=== PATIENT | male | born 1965 | race African-American/Black ===

== ENCOUNTER 2017-10-23 16:10 | Emergency (ER) | payer OTHER, SELFPAY ==
[2017-10-23 16:42] LABS: #Basophils 0.1 thou/uL (0.0-0.2); #Lymphocytes 2.1 thou/uL (1.20-3.40); #Monocytes 0.4 thou/uL (0.11-0.59); #Neutrophils 2.7 thou/uL (1.40-6.50); %Basophils 1.4 % (0.0-1.0); %Eosinophils 0.4 % (0.0-10.0); %Lymphocytes 39.2 % (21.0-51.0); Hematocrit 50.9 % (42.0-52.0); Mean Platelet Volume 7.8 fL (7.4-10.4); Red Blood Cell (RBC) Count 4.92 mill/uL (4.70-6.10); White Blood Cell (WBC) Count 5.2 thou/uL (4.8-10.8)
[2017-10-23 17:04] LABS: ALT (SGPT) 12 U/L (8-55); AST (SGOT) 23 U/L (5-34); Alkaline Phosphatase 81 U/L (40-150); Anion Gap 15 mmol/L (10-20); BUN (Urea Nitrogen) 21 mg/dL (8.9-20.6); Bilirubin, Total 2.3 mg/dL (0.2-1.2); Calc. Creatinine Clearance 0 mL/min (70-130); Calcium 9.9 mg/dL (7.8-10.44); Carbon Dioxide 26 mmol/L (22-29); Chloride 99 mmol/L (98-107); Estimated GFR-MDRD 65; Globulin 3.6 g/dL (2.4-3.5); Lipase 6 U/L (8-78); Protein, Total 7.8 g/dL (6.0-8.3)
[2017-10-23] MEDS ORDERED: Ondansetron HCl/PF 4 MG/2 ML Vial ONE (17:28)
[2017-10-23] MEDS ORDERED: diphenhydrAMINE 50 MG/ML VIAL ONE (18:40)
[2017-10-23 20:06] LABS: Bilirubin Negative (Negative); Blood, Urine Trace (Negative); Glucose, Urine (Dipstick) Negative (Negative); Ketone, Urine Trace mg/dL (Negative); Nitrite Negative (Negative); Protein, Urine (Dipstick) 30 mg/dL (Neg-Trace)
[2017-10-23 20:08] LABS: Bacteria/HPF None Seen HPF (None Seen); Hyaline Casts/LPF 4-6 HYALINE CAST LPF (0-3 Hyaline); RBC/HPF 21-50 HPF (0-3); Squamous Epithelial 0-3 HPF (0-3); WBC/HPF 0-3 HPF (0-3)
== END 2017-10-23 21:15 | disposition home or self-care (01) ==
LOC: ERS 16:10
DX: E86.0 Dehydration (principal); L50.9 Urticaria, unspecified; I10 Essential (primary) hypertension; J45.909 Unspecified asthma, uncomplicated; F17.210 Nicotine dependence, cigarettes, uncomplicated
CPT/HCPCS: 36415; 80053; 81003; 81015; 83690; 85025; 96361; 96374; 96375; 99406; J1200; J2405

== ENCOUNTER 2018-04-01 23:02 | Inpatient (IN) | payer BC, SELFPAY ==
[2018-04-01] MEDS ORDERED: methylPREDNISolone Sod Succ/PF 125 MG/2 ML VIAL ONE (23:25)
[2018-04-01 23:28] LABS: #Basophils 0.1 thou/uL (0.0-0.2); #Eosinphils 0.3 thou/uL (0.0-0.7); #Lymphocytes 3.8 thou/uL (1.20-3.40); #Monocytes 0.5 thou/uL (0.11-0.59); %Basophils 0.6 % (0.0-1.0); %Eosinophils 2.7 % (0.0-10.0); %Lymphocytes 32.3 % (21.0-51.0); %Monocytes 4.6 % (0.0-10.0); %Neutrophils 59.8 % (42.0-75.0); Hemoglobin 14.3 g/dL (14.0-18.0); Mean Corpuscular HGB CONC 33.2 g/dL (32.0-36.0); Mean Platelet Volume 8.9 fL (7.4-10.4); Platelet Count 205 thou/uL (130-400); White Blood Cell (WBC) Count 11.7 thou/uL (4.8-10.8)
[2018-04-01 23:39] LABS: INR-International Normal Ratio 1.2; PTT 31.6 SEC (22.9-36.1); Prothrombin Time 15.5 SEC (12.0-14.7)
[2018-04-01 23:47] LABS: ALT (SGPT) 63 U/L (8-55); AST (SGOT) 63 U/L (5-34); Albumin 4.1 g/dL (3.5-5.0); Alkaline Phosphatase 106 U/L (40-150); Anion Gap 11 mmol/L (10-20); BUN (Urea Nitrogen) 16 mg/dL (8.4-25.7); Bilirubin, Total 1.4 mg/dL (0.2-1.2); CK (CPK) 480 U/L (30-200); Calc. Creatinine Clearance 0 mL/min (70-130); Calcium 9.4 mg/dL (7.8-10.44); Carbon Dioxide 25 mmol/L (22-29); Chloride 112 mmol/L (98-107); Estimated GFR-MDRD 87; Globulin 3.2 g/dL (2.4-3.5); Glucose 142 mg/dL (70-105); Magnesium 2.3 mg/dL (1.6-2.6); Potassium 4.1 mmol/L (3.5-5.1); Protein, Total 7.3 g/dL (6.0-8.3); Sodium 144 mmol/L (136-145)
[2018-04-01 23:52] LABS: CKMB 3.2 ng/mL (0-6.6); Troponin I 0.048 ng/mL (< 0.028)
--- NOTE | 2018-04-01 23:53 | RAD ---
AP VIEW CHEST: 04/01/18 HISTORY: Chest pain. AP view of the chest is obtained on 04/01/18. Comparison made to previous exam from 02/06/14. AP view chest demonstrates mild pulmonary vascular congestion. No evidence of effusions, pneumonia or pneumothorax seen. IMPRESSION: Unremarkable AP view chest. POS: [facility]
[2018-04-02] MEDS ORDERED: Furosemide 40 MG/4 ML VIAL ONE (00:13)
[2018-04-02] MEDS ORDERED: Nitroglycerin 2% Ointment 1 INCH/1 GM Packet ONE (00:13)
[2018-04-02 01:29] VITALS: BMI 19.1
[2018-04-02 03:13] LABS: Troponin I 0.068 ng/mL (< 0.028)
[2018-04-02] MEDS ORDERED: hydrALAZINE 20 MG/ML VIAL SLOW IVP PRN (04:49)
[2018-04-02] MEDS ORDERED: Ondansetron HCl/PF 4 MG/2 ML Vial IVP PRN (04:49)
[2018-04-02] MEDS ORDERED: cloNIDine 0.1 MG TAB PO PRN (04:49)
[2018-04-02] MEDS ORDERED: Ondansetron ODT 4 MG TAB PO PRN (04:49)
[2018-04-02] MEDS ORDERED: Acetaminophen 500 MG TAB PO PRN (04:49)
[2018-04-02] MEDS: Furosemide 20 MG/2 ML VIAL SLOW IVP SCH ×2 (06:00→14:34)
[2018-04-02 06:04] LABS: ALT (SGPT) 60 U/L (8-55); AST (SGOT) 43 U/L (5-34); Albumin 4.2 g/dL (3.5-5.0); Alkaline Phosphatase 110 U/L (40-150); Anion Gap 10 mmol/L (10-20); BUN (Urea Nitrogen) 16 mg/dL (8.4-25.7); Bilirubin, Total 1.8 mg/dL (0.2-1.2); Calc. Creatinine Clearance 78 mL/min (70-130); Calcium 9.5 mg/dL (7.8-10.44); Carbon Dioxide 26 mmol/L (22-29); Chloride 108 mmol/L (98-107); Estimated GFR-MDRD Greater than 90; Globulin 3.4 g/dL (2.4-3.5); Glucose 151 mg/dL (70-105); Potassium 3.8 mmol/L (3.5-5.1); Protein, Total 7.6 g/dL (6.0-8.3); Sodium 140 mmol/L (136-145)
[2018-04-02 06:08] LABS: Troponin I 0.047 ng/mL (< 0.028)
[2018-04-02 07:11] LABS: Band 8 % (5-11); Hemoglobin 14.4 g/dL (14.0-18.0); Lymphocytes 8 % (21-51); MDiff Complete? YES; Macrocytosis SLIGHT = 6-15 cells (100X) (0-5/hpf); Mean Corpuscular HGB CONC 34.2 g/dL (32.0-36.0); Mean Corpuscular Hemoglobin 34.4 pg (27.0-31.0); Mean Platelet Volume 8.7 fL (7.4-10.4); Neutrophil 84 % (42-75); PLT Morphology Comment Appears Adequate; Platelet Count 205 thou/uL (130-400); RBC Distribution Width 11.1 % (11.5-14.5); Red Blood Cell (RBC) Count 4.19 mill/uL (4.70-6.10); White Blood Cell (WBC) Count 11.7 thou/uL (4.8-10.8)
--- NOTE | 2018-04-02 07:22 | HP ---
DATE OF ADMISSION: 04/02/2018 PRIMARY CARE PROVIDER: Ann schwartz. CHIEF COMPLAINT: Shortness of breath. HISTORY OF PRESENT ILLNESS: This is a 53-year-old -[place]er male who presents to [facility] complaining of increased shortness of breath over the last 24 hours. The patient with known history of hypertension, asthma, presenting with severe shortness of breath with chest imaging in the department showing pulmonary edema and concern for new onset marina estive heart failure. Initial BNP of 823 noted. The patient denied any prior known history of conge stive heart failure. The patient denied any specific fever, chills, recent trauma, travel history, o r unilateral lower extremity edema. The patient denies any specific ankle edema. The patient states he has recently been placed on a medical insurance through his employer and has not sought medical c are recently. The patient denied any specific jaw or left arm pain. The patient denied any specific chest pain other than when he was initially evaluated in the emergency room noted to be hypoxic and placed on BiPAP noninvasive mechanical ventilation. The patient received IV Lasix 40 mg x1 dose in a ddition to transdermal nitroglycerin, aspirin 324 mg and Solu-Medrol 125. The patient also received bronchodilator therapy with DuoNebs. The patient does admit to smoking history up to half a pack of cigarettes daily. PAST MEDICAL HISTORY: 1. Hypertension, uncontrolled. 2. History of asthma. 3. Tobacco abuse. 4. History of marijuana use. PAST SURGICAL HISTORY: Status post circumcision at the age of 19. CURRENT MEDICATIONS: Reviewed and negative. ALLERGIES: No known drug allergies. FAMILY HISTORY: Positive for hypertension. SOCIAL HISTORY: The patient resides in [place], [place]. Works for [employer]. Smokes up to half a pack of cigarettes daily. Social alcohol use. Denies illicit drug use. REVIEW OF SYSTEMS: The following complete review of systems was negative, unless otherwise mentioned in the HPI or below: Constitutional: Weight loss or gain, ability to conduct usual activities. Sk in: Rash, itching. Eyes: Double vision, pain. ENT/Mouth: Nose bleeding, neck stiffness, pain, te nderness. Cardiovascular: Palpitations, dyspnea on exertion, orthopnea. Respiratory: Shortness of breath, wheezing, cough, hemoptysis, fever or night sweats. Gastrointestinal: Poor appetite, abdom inal pain, heartburn, nausea, vomiting, constipation, or diarrhea. Genitourinary: Urgency, frequenc y, dysuria, nocturia. Musculoskeletal: Pain, swelling. Neurologic/Psychiatric: Anxiety, depressio n. Allergy/Immunologic: Skin rash, bleeding tendency. Otherwise negative except as stated per HPI. PHYSICAL EXAMINATION: VITAL SIGNS: On admission, blood pressure 154/135, pulse 109, respiratory rate 25, temperature 98 de grees Fahrenheit, O2 saturation 98% on BiPAP, noninvasive mechanical ventilation. GENERAL APPEARANCE: This is a 53-year-old -[place]er male, alert and oriented x3, pleasant, in no acute distress. HEENT: Pupils are equal, round, and reactive to light and accommodation. Extraocular muscles are in tact. No scleral icterus, no conjunctival injection. Nares patent. OP is clear. Teeth in fair rep air. NECK: Supple. No cervical adenopathy, no thyromegaly, no carotid bruits, no JVD appreciated. Cervi doron spine with full active and passive range of motion. No meningeal signs appreciated. CHEST: Bibasilar crackles noted. Prolonged expiratory phase. CARDIOVASCULAR: S1, S2 with tachycardia. No murmur, rub, or gallop. ABDOMEN: Flat, soft, nontender, nondistended. Bowel sounds are positive in all four quadrants. The re is no hepatosplenomegaly, no abdominal bruits, no rebound or guarding appreciated. EXTREMITIES: Warm and dry with fair turgor. No clubbing, cyanosis, or asymmetric edema appreciated. Pulses palpable distally at the dorsalis pedis, posterior tibial, and popliteal arteries bilaterall y. Capillary refill less than 2 seconds. NEUROLOGIC: Cranial nerves II-XII are grossly intact. No focal or lateralizing signs appreciated. PERTINENT LABORATORY AND X-RAY FINDINGS: Sodium 144, potassium 4.1, chloride 112, CO2 of 25, BUN 16, creatinine 1.08, estimated GFR of 87, glucose 142, calcium 9.4, magnesium 2.3, total bilirubin 1.4, AST 63, ALT 63, alkaline phosphatase 106. Total CK 480. Troponin I ranged between 0.048 to 0.068. BNP 823. Albumin 4.1. CBC showed a white blood cell count of 11.7, hemoglobin 14, hematocrit 43, MC V 102, platelet count 205 with normal differential. PT 15.5, INR 1.2, PTT 31.6. Portable chest x-ra y dated 04/01/2018 showed mild pulmonary vascular congestion. EKG dated 04/01/2018 by my interpretat ion shows sinus tachycardia with heart rates greater than 100. Attenuated R waves noted in the preco rdial leads. Left axis deviation noted. Voltage criteria consistent with left ventricular hypertrop hy. No acute ST-T wave changes appreciated. ASSESSMENT AND PLAN: 1. Acute congestive heart failure exacerbation. The patient will be admitted to the intermediate ca re unit. We will obtain 2D transthoracic echocardiogram for accurate ejection fraction, valvular fun ction. Continue Lasix 20 mg IV b.i.d. Consult Cardiology service in the a.m. for further recommenda tions and comanagement. Continue aspirin 81 mg daily, and initiate carvedilol 6.25 mg b.i.d. Initia te lisinopril 2.5 mg daily. 2. Acute hypoxemic respiratory failure secondary to #1. Improved after BiPAP noninvasive mechanical ventilation. We will wean to oxygen by nasal cannula. Bronchodilator therapy with DuoNeb q.4 hours p.r.n. 3. Transaminitis. Suspect secondary to #2. We will check a hepatitis A, B, and C panel. Monitor s erial LFTs. 4. Elevated troponin I. Suspect secondary to demand ischemia in the context of elevated blood press ure and presentation. Continue to trend cardiac biomarkers. Consult Cardiology service in the a.m. Continue aspirin 81 mg daily. 5. Tobacco use. We will offer smoking cessation resources prior to discharge. 6. Prophylaxis. Sequential compression devices while in bed. Pepcid 20 mg p.o. b.i.d. 7. Code status is FULL. Surrogate medical decision maker is Jessica Looney.
[2018-04-02] MEDS: Aspirin 81 mg Enteric Coated Tablet PO SCH (08:28)
[2018-04-02] MEDS: Famotidine 20 MG TAB PO SCH ×2 (08:28→20:15)
[2018-04-02] MEDS: Carvedilol 6.25 MG TAB PO SCH ×2 (08:28→17:20)
[2018-04-02] MEDS: Lisinopril 2.5 MG TAB PO SCH (08:29)
--- NOTE | 2018-04-02 12:22 | CON ---
DATE OF CONSULTATION: 04/02/2018 CONSULTING PHYSICIAN: Dr. Harrell from [facility]. REASON FOR CONSULTATION: Acute respiratory failure, related to congestive heart failure. HISTORY OF PRESENT ILLNESS: Mr. Carvajal is a 53-year-old male, who came to the emergency room last nig ht with shortness of breath and chest pain that had been present off and on for 24 hours prior to adm ission. He was noted to have severely elevated BNP along with pulmonary edema on his chest x-ray. H e was placed on BiPAP, given diuretics, and improved. He is no longer having chest pain at this time . This patient has been seen by Dr. Demarco in the past, but that was about 10 years ago, when he was hos pitalized with pneumonia. PAST MEDICAL HISTORY: 1. Hypertension. 2. Asthma. 3. Tobacco abuse. PAST SURGICAL HISTORY: Circumcision. MEDICATIONS PRIOR TO ADMISSION: None. ALLERGIES: None. FAMILY MEDICAL HISTORY: Remarkable for hypertension. SOCIAL HISTORY: He smokes 1 pack per day, occasionally uses alcohol, does not use illicit drugs. He is currently under house arrest with the ankle bracelet on his right ankle. REVIEW OF SYSTEMS: Twelve-point review of systems, otherwise, negative. PHYSICAL EXAMINATION: VITAL SIGNS: Temperature 98.2, pulse 88, blood pressure 142/81, O2 sat 98% on 1.5 liters. HEENT: Unremarkable. NECK: No JVD. LUNGS: Clear without wheezing or rhonchi. CARDIAC: S1 and S2 regular, without murmur, rub, or gallop. ABDOMEN: Soft, nontender, nondistended. EXTREMITIES: No clubbing, cyanosis, or edema. NEUROLOGIC EXAM: Grossly intact throughout. SKIN: Shows no bruises or jaundice. LABORATORY DATA: White blood cell count 11.7, hematocrit 42.3, platelet count 205. INR 1.2. Sodium 140, potassium 3.8, chloride 100, CO2 of 26, BUN 16, creatinine 0.9, glucose 151, troponin 0.047. ASSESSMENT: 1. New onset congestive heart failure - suspect acute systolic dysfunction. 2. Angina on admission. 3. Acute respiratory failure, which is resolved. PLAN: BiPAP has been discontinued. The patient can be moved to the telemetry floor. He needs furth er workup from Cardiology regarding chest pain with probable stress testing or cardiac catheterizatio n.
--- NOTE | 2018-04-02 15:21 | PDOC.PN ---
- Subjective Encounter Start Date: 04/02/18 Encounter Start Time: 12:00 Subjective: breathing better, no chest pain or palp - Objective Resuscitation Status: Resuscitation Status FULL:Full Resuscitation MAR Reviewed: Yes Vital Signs & Weight: Vital Signs (12 hours) Temp Pulse Pulse Pulse Resp BP BP 04/02/18 12:14 94 74 113/77 04/02/18 11:00 98.9 F 83 18 04/02/18 08:29 88 142/91 H 04/02/18 08:28 142/91 H 04/02/18 08:18 98.9 F 83 18 04/02/18 07:25 98.2 F 96 18 04/02/18 04:00 98.2 F 94 18 BP BP Pulse Ox Pulse Ox Pulse Ox 04/02/18 12:14 136/84 97 98 04/02/18 11:00 118/85 96 04/02/18 08:29 04/02/18 08:28 04/02/18 08:18 98 04/02/18 07:25 153/105 H 98 04/02/18 04:00 129/91 H 97 Weight Weight 122 lb 8 oz I&O: 04/01/18 04/02/18 04/03/18 06:59 06:59 06:59 Intake Total 150 Output Total 1600 Balance -1450 Result Diagrams: 04/02/18 05:35 04/02/18 05:35 Phys Exam - Physical Examination HEENT: PERRLA, moist MMs Neck: no JVD, supple Respiratory: no wheezing, no rales Cardiovascular: RRR, no significant murmur Gastrointestinal: soft, non-tender, positive bowel sounds Musculoskeletal: no edema, pulses present Neurological: non-focal, moves all 4 limbs Psychiatric: normal affect, A&O x 3 Dx/Plan (1) Acute exacerbation of CHF (congestive heart failure) Code(s): I50.9 - HEART FAILURE, UNSPECIFIED Status: Acute (2) COPD (chronic obstructive pulmonary disease) Status: Chronic Qualifiers: COPD type: chronic bronchitis Chronic bronchitis type: unspecified Qualified Code(s): J42 - Unspecified chronic bronchitis (3) Acute respiratory failure with hypoxia Code(s): J96.01 - ACUTE RESPIRATORY FAILURE WITH HYPOXIA Status: Resolved (4) Demand ischemia of myocardium Code(s): I24.8 - OTHER FORMS OF ACUTE ISCHEMIC HEART DISEASE Status: Acute (5) Tobacco abuse Code(s): Z72.0 - TOBACCO USE Status: Chronic - Plan off bipap -: on lasic 20mg iv q12h -: for stress test per cardio advice, await echo results -: small dose of coreg, lisinopril and asp -: nebs prn, tx to tele * . Review of Systems - Medications/Allergies Allergies/Adverse Reactions: Allergies Allergy/AdvReac Type Severity Reaction Status Date / Time No Known Allergies Allergy Verified 04/02/18 01:31 Medications: Current Medications Acetaminophen (Tylenol) 1,000 mg PO Q6H PRN PRN Reason: Headache/Fever or Mild Pain Last Admin: 04/02/18 08:35 Dose: 1,000 mg Aspirin (Ecotrin) 81 mg PO DAILY [facility] Last Admin: 04/02/18 08:28 Dose: 81 mg Carvedilol (Coreg) 6.25 mg PO BID-[facility] Last Admin: 04/02/18 08:28 Dose: 6.25 mg Clonidine (Catapres) 0.1 mg PO Q4H PRN PRN Reason: Systolic BP > 180 Famotidine (Pepcid) 20 mg PO BID [facility] Last Admin: 04/02/18 08:28 Dose: 20 mg Furosemide (Lasix) 20 mg SLOW IVP 0600,1400 [facility] Last Admin: 04/02/18 14:34 Dose: 20 mg Hydralazine HCl (Apresoline) 20 mg SLOW IVP Q4H PRN PRN Reason: Systolic BP > 180 Lisinopril (Zestril) 2.5 mg PO DAILY [facility] Last Admin: 04/02/18 08:29 Dose: 2.5 mg Ondansetron HCl (Zofran Odt) 4 mg PO Q6H PRN PRN Reason: Nausea/Vomiting Ondansetron HCl (Zofran) 4 mg IVP Q6H PRN PRN Reason: Nausea/Vomiting Sodium Chloride (Flush - Normal Saline) 10 ml IVF PRN PRN PRN Reason: Saline Flush Last Admin: 04/02/18 06:00 Dose: 10 ml
--- NOTE | 2018-04-02 17:55 | CON ---
DATE OF CONSULTATION: 04/02/2018 DATE OF ADMISSION: 04/02/2018 INDICATION FOR CONSULTATION: A 53-year-old patient with chest pain. HISTORY OF PRESENT ILLNESS: This a very pleasant 53-year-old gentleman, who is an -[place]e, presented to the hospital to the emergency room after he had complaints of shortness of breath. He h ad noticed his first shortness of breath on night. He then got up and went to work on . He did not have any problems. He said he was coughing with the shortness of breath, and when he coughed, he had chest pain. He went to work on Wednesday and he had no problems whatsoever with pain. He went home and started coughing again, and that when he would cough, he would have pain. He then p resented to the emergency room and was admitted. His cardiac enzymes were indeterminate. His CK was 480, which would make the troponin I perhaps slightly elevated, but this could be slight amount of m uscle. His MB was 3.2. BNP was 823, somewhat suspicious, but however, he may have underlying pulmon alvina disease or maybe due to some hypertension, but at this time, there does not appear to be any sign ificant abnormality. We are still waiting for an echocardiogram on the patient to determine whether or not his ejection fraction appears to be normal. On chest x-ray, his heart does not appear to be e nlarged. He did give me a history of having asthma as a child. On examination, he does have some wh eezing. He continues to smoke and has smoked a half a pack a day for up to 35 years. He also had dr ramón schultz in the past, which showed evidence of marijuana use. PAST MEDICAL HISTORY: Significant for hypertension, history of asthma, history of tobacco abuse, his tory of marijuana use. He has had a circumcision. CURRENT MEDICATIONS: Include aspirin, Coreg 6.25 mg b.i.d., Pepcid, Lasix 20 mg IV, Zestril 2.5 mg a day, Tylenol, clonidine p.r.n., also hydralazine p.r.n. ALLERGIES: None. FAMILY HISTORY: Noncontributory, but then does have history of hypertension. SOCIAL HISTORY: He continues to smoke. 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 He has occasional alcohol use. He denies any previous recent drug use; however, this is un certain. There was no drug or urinalysis performed on this admission that I can ascertain. REVIEW OF SYSTEMS: A 12-point review of systems is unremarkable except what was noted in the history of present illness. PHYSICAL EXAMINATION: GENERAL: Reveals a thin, middle-aged -[place]inamese gentleman, who is in no acute distress at this time. He is alert and oriented. He denies any symptoms. VITAL SIGNS: His blood pressure is 136/84, heart rate is 83 and regular, respiratory rate is 18. He is afebrile. HEENT EXAM: Shows the head to be normocephalic and atraumatic. Carotid pulses are present. There w ere no bruits. There is no JVD. The thyroid is not enlarged. Oral mucosa is pink and moist. CHEST: Shows expiratory wheezing, which does improve after he coughs. CARDIOVASCULAR EXAM: Reveals a regular rate and rhythm, normal S1 and S2. There is no S3 or S4. Th ere were no significant murmurs, heaves, thrills, bruits, or rubs noted. ABDOMINAL EXAM: Soft, flat, and nontender with positive bowel sounds. No organomegaly or masses are noted. Femoral pulses are present. Pedal pulses are somewhat decreased. He has an ankle bracelet on the right foot for police custody or police monitoring. NEUROLOGIC: He appears to be intact without any evidence of focal motor deficits. LABORATORY DATA: As noted above with a troponin I of 0.048 and then decreased down to 0.047. CK is 480, creatinine 0.91, potassium is 3.8, hemoglobin 14.4. Chest x-ray shows some nonspecific changes in the lung payan. Cardiac silhouette does not show any evidence of enlarged heart. His EKG shows a sinus rhythm with evidence of left ventricular hypertrophy and T-wave changes associated with left ventricular hypertrophy. There was no acute ST-segment elevation. He has had some short runs of sup raventricular tachycardia up to 10 beats since being admitted to the hospital. We will await the res ults of the echocardiogram before further recommendations. He could undergo stress testing to rule o ut evidence for underlying ischemia. This could be performed as a simple straightforward Eder elicia col stress test once we evaluated the echocardiogram. IMPRESSION: 1. Chest pain, which is most likely noncardiac in nature, but given his history of risk factors, we will need to have further investigation. We will obtain an echocardiogram for evaluation of left josy tricular systolic function. Also, we would advise a Eder protocol stress test once the echocardiogr am results are known. This could be performed as an outpatient, but could easily be performed before the patient leaves hospital. 2. Hypertension. He will need to continue his medications to lower the blood pressure. 3. History of tobacco abuse. He was strongly encouraged to stop smoking. We would be more than happy to continue to follow the patient with you.
[2018-04-03 04:44] LABS: Band 2 % (5-11); Eosinophils 1 % (0-10); Hemoglobin 13.9 g/dL (14.0-18.0); Lymphocytes 46 % (21-51); MDiff Complete? YES; Mean Corpuscular HGB CONC 33.3 g/dL (32.0-36.0); Mean Corpuscular Hemoglobin 33.6 pg (27.0-31.0); Mean Platelet Volume 9.1 fL (7.4-10.4); Neutrophil 50 % (42-75); PLT Morphology Comment Appears Adequate; Platelet Count 202 thou/uL (130-400); RBC Distribution Width 11.1 % (11.5-14.5); Red Blood Cell (RBC) Count 4.13 mill/uL (4.70-6.10); White Blood Cell (WBC) Count 13.5 thou/uL (4.8-10.8)
[2018-04-03 04:46] LABS: ALT (SGPT) 44 U/L (8-55); AST (SGOT) 23 U/L (5-34); Albumin 3.7 g/dL (3.5-5.0); Alkaline Phosphatase 90 U/L (40-150); Anion Gap 9 mmol/L (10-20); BUN (Urea Nitrogen) 17 mg/dL (8.4-25.7); Bilirubin, Total 1.4 mg/dL (0.2-1.2); Calc. Creatinine Clearance 67 mL/min (70-130); Calcium 9.3 mg/dL (7.8-10.44); Carbon Dioxide 31 mmol/L (22-29); Cardiac Risk 3.2 (Less than 4.5); Chloride 102 mmol/L (98-107); Cholesterol 167 mg/dl (< 200 Desired); Estimated GFR-MDRD Greater than 90; Globulin 2.9 g/dL (2.4-3.5); Glucose 109 mg/dL (70-105); HDL Cholesterol 52 mg/dL (>60 Neg Risk); LDL Cholesterol, Calculated 100 mg/dL; Protein, Total 6.6 g/dL (6.0-8.3); Sodium 139 mmol/L (136-145); Triglycerides 76 mg/dL (Less than 150)
[2018-04-03] MEDS: Furosemide 20 MG/2 ML VIAL SLOW IVP SCH (06:02)
[2018-04-03] MEDS: Lisinopril 2.5 MG TAB PO SCH (08:36)
[2018-04-03] MEDS: Famotidine 20 MG TAB PO SCH ×2 (08:36→20:58)
[2018-04-03] MEDS: Carvedilol 6.25 MG TAB PO SCH ×2 (08:36→16:19)
[2018-04-03] MEDS: Aspirin 81 mg Enteric Coated Tablet PO SCH (08:36)
--- NOTE | 2018-04-03 11:16 | PRG ---
DATE OF SERVICE: 04/03/2018 SUBJECTIVE: He is doing well, no complaints. PHYSICAL EXAMINATION: VITAL SIGNS: Temperature 98.8, pulse 78, blood pressure 108/66, respiratory rate 14, O2 sat 99%. HEENT: Unremarkable. NECK: No JVD. CHEST: Clear. CARDIAC: S1 and S2 regular. ABDOMEN: Soft. EXTREMITIES: No edema. LABORATORY DATA: White blood cell count 13.5, hematocrit 41, platelet count 202. Troponin is 0.047. Sodium 139, potassium 3, chloride 102, CO2 of 31, BUN 17, creatinine 1.0, glucose 109. ASSESSMENT: 1. Congestive heart failure -- acute systolic. 2. Angina. 3. Acute respiratory failure at time of admission. PLAN: Stable from a pulmonary standpoint. He is continuing workup for cardiac issues. No further r ecommendations. We will sign off.
--- NOTE | 2018-04-03 12:14 | PDOC.PN ---
- Subjective Encounter Start Date: 04/03/18 Encounter Start Time: 12:00 Subjective: no chest pain or sob - Objective Resuscitation Status: Resuscitation Status FULL:Full Resuscitation MAR Reviewed: Yes Vital Signs & Weight: Vital Signs (12 hours) Temp Pulse Pulse Pulse Resp BP BP 04/03/18 11:11 96.6 F L 73 04/03/18 10:09 66 81 98/71 04/03/18 09:00 04/03/18 08:36 88 108/66 04/03/18 07:45 98.8 F 97 14 04/03/18 07:43 98.8 F 97 04/03/18 05:54 99 F 95 14 BP BP BP Pulse Ox Pulse Ox Pulse Ox 04/03/18 11:11 103/72 97 04/03/18 10:09 124/61 94 L 97 04/03/18 09:00 97 04/03/18 08:36 04/03/18 07:45 99 04/03/18 07:43 112/68 97 04/03/18 05:54 107/66 96 Weight Weight 123 lb 6.4 oz I&O: 04/02/18 04/03/18 04/04/18 06:59 06:59 06:59 Intake Total 150 842 480 Output Total 1600 800 525 Balance -1450 42 -45 Result Diagrams: 04/03/18 03:51 04/03/18 03:51 Phys Exam - Physical Examination HEENT: PERRLA, moist MMs Neck: no JVD, supple Respiratory: no wheezing, no rales Cardiovascular: RRR, no significant murmur Gastrointestinal: soft, non-tender, positive bowel sounds Musculoskeletal: no edema, pulses present Neurological: non-focal, moves all 4 limbs Psychiatric: normal affect, A&O x 3 Dx/Plan (1) Acute exacerbation of CHF (congestive heart failure) Code(s): I50.9 - HEART FAILURE, UNSPECIFIED Status: Acute Qualifiers: Heart failure type: systolic Qualified Code(s): I50.23 - Acute on chronic systolic (congestive) heart failure Comment: ef of 25%, new onset (2) COPD (chronic obstructive pulmonary disease) Status: Chronic Qualifiers: COPD type: chronic bronchitis Chronic bronchitis type: unspecified Qualified Code(s): J42 - Unspecified chronic bronchitis (3) Acute respiratory failure with hypoxia Code(s): J96.01 - ACUTE RESPIRATORY FAILURE WITH HYPOXIA Status: Resolved (4) Demand ischemia of myocardium Code(s): I24.8 - OTHER FORMS OF ACUTE ISCHEMIC HEART DISEASE Status: Acute (5) Tobacco abuse Code(s): Z72.0 - TOBACCO USE Status: Chronic - Plan likely will need pharmacologic stress test/cath -: on asp, coreg, lisinopril -: may switch lasix to oral daily -: is awaiting tele bed -: dc plan per cardio advice * . Review of Systems - Medications/Allergies Allergies/Adverse Reactions: Allergies Allergy/AdvReac Type Severity Reaction Status Date / Time No Known Allergies Allergy Verified 04/02/18 01:31 Medications: Current Medications Acetaminophen (Tylenol) 1,000 mg PO Q6H PRN PRN Reason: Headache/Fever or Mild Pain Last Admin: 04/02/18 08:35 Dose: 1,000 mg Aspirin (Ecotrin) 81 mg PO DAILY [facility] Last Admin: 04/03/18 08:36 Dose: 81 mg Carvedilol (Coreg) 6.25 mg PO BID[facility] Last Admin: 04/03/18 08:36 Dose: 6.25 mg Clonidine (Catapres) 0.1 mg PO Q4H PRN PRN Reason: Systolic BP > 180 Famotidine (Pepcid) 20 mg PO BID [facility] Last Admin: 04/03/18 08:36 Dose: 20 mg Furosemide (Lasix) 20 mg SLOW IVP 0600,1400 [facility] Last Admin: 04/03/18 06:02 Dose: 20 mg Hydralazine HCl (Apresoline) 20 mg SLOW IVP Q4H PRN PRN Reason: Systolic BP > 180 Lisinopril (Zestril) 2.5 mg PO DAILY [facility] Last Admin: 04/03/18 08:36 Dose: 2.5 mg Ondansetron HCl (Zofran Odt) 4 mg PO Q6H PRN PRN Reason: Nausea/Vomiting Ondansetron HCl (Zofran) 4 mg IVP Q6H PRN PRN Reason: Nausea/Vomiting Sodium Chloride (Flush - Normal Saline) 10 ml IVF PRN PRN PRN Reason: Saline Flush Last Admin: 04/02/18 06:00 Dose: 10 ml
--- NOTE | 2018-04-03 15:28 | ADD-CON ---
ADDENDUM Mr. Carvajal is a very pleasant 53-year-old gentleman, who was admitted with congestive heart failure ty pe symptoms. He was advised to undergo stress testing to rule out evidence for underlying ischemia d ue to his shortness of breath and chest discomfort. He underwent a regular Eder protocol stress meseret t this afternoon without any significant difficulties. His EKG did not show any evidence of ischemia . He did not have any chest pain during the procedure. After the procedure was completed, the patie nt then underwent an echocardiogram for evaluation of left ventricular systolic function and was foun d to have a severe decrease in left ventricular systolic function. Ejection fraction was estimated a t 25-30%. This appears to be some type of a cardiomyopathy, which may be a nonischemic cardiomyopath y. Nonetheless, it appears to be severe decrease in his left ventricular systolic function with a gl obal picture. Given his abnormal cardiac enzymes, which are still indeterminate with a normal MB and elevated CK, I will advise this patient to undergo a cardiac catheterization as a definitive tool to rule out evidence for underlying coronary artery disease. Prior to discharge, he will need to have a LifeVest applied. We discussed with him about close followups and that he may need to undergo an A ICD implant. At this time, I would agree the present medical management of this patient and would co ntinue to titrate the medications as much as possible.
--- NOTE | 2018-04-03 21:36 | PDOC.CTH ---
Cardiology Progress Note - Subjective Pt. seen and eval. He denies any complaints. No chest pain or coughing. - Objective Vital Signs Temp Pulse Pulse Pulse Resp BP BP 04/03/18 19:54 97.8 F 64 20 04/03/18 15:05 98.3 F 69 16 04/03/18 15:00 98.3 F 69 16 04/03/18 11:11 96.6 F L 73 04/03/18 10:09 66 81 98/71 124/61 BP BP Pulse Ox Pulse Ox Pulse Ox 04/03/18 19:54 109/90 94 L 04/03/18 15:05 93 L 04/03/18 15:00 105/59 L 93 L 04/03/18 11:11 103/72 97 04/03/18 10:09 94 L 97 Weight 123 lb 6.4 oz 04/02/18 04/03/18 04/04/18 06:59 06:59 06:59 Intake Total 150 842 960 Output Total 1600 800 975 Balance -1450 42 -15 - Physical Examination General/Neuro: alert & oriented x3 Neck: carotid US brisk, no JVD present Lungs: CTA Heart: RRR Abdomen: no HSM, NT/ND, soft - Telemetry Telemetry Rhythm: NSR - Labs Result Diagrams: 04/03/18 03:51 04/03/18 03:51 Troponin/CKMB CK-MB (CK-2) 3.2 ng/mL (0-6.6) 04/01/18 23:19 Troponin I 0.047 ng/mL (< 0.028) H 04/02/18 05:35 - Assessment/Plan 1. CMY. Uncertain etiology. Stress test was negative for ischemia. On further questioning, he admitted to illicit drug use in the past with more than marijuana. This may be the etiology of the CMY. He also has HTN that was untreated. With medical management the EF may improve. If not then he would be a candidate for an AICD due to the severe decrease in the EF. He osvaldo need a Life -Vest for 90 days and f/u and if no improvement the AICD. Continue MALAIKA-I and beta-blockers and diuretics. 2. HTN- stable at this time. 3. Hx. of Asthma. He may benefit from a pulmonary consult and /or inhalers.
[2018-04-04] MEDS ORDERED: Furosemide 40 MG TAB PO SCH (07:30)
--- NOTE | 2018-04-04 08:55 | PDOC.CTH ---
Cardiology Progress Note - Subjective The pt seen and examined. No overnight events. No cardiac complaints. He walks without any cardiac complaints. - Objective Vital Signs Temp Pulse Resp BP Pulse Ox 04/04/18 08:00 99.1 F 78 20 98 04/04/18 07:35 99.1 F 78 20 116/77 98 04/04/18 03:31 97.5 F L 82 14 118/75 98 04/04/18 00:00 97.4 F L 88 17 109/66 92 L Weight 123 lb 11.2 oz 04/03/18 04/04/18 04/05/18 06:59 06:59 06:59 Intake Total 842 1320 Output Total 800 1500 Balance 42 -180 - Physical Examination General/Neuro: alert & oriented x3 Neck: no JVD present Lungs: CTA Heart: RRR Abdomen: soft Extremities: other: (No edema) - Telemetry Telemetry Rhythm: SR - Labs Result Diagrams: 04/03/18 03:51 04/03/18 03:51 Troponin/CKMB CK-MB (CK-2) 3.2 ng/mL (0-6.6) 04/01/18 23:19 Troponin I 0.047 ng/mL (< 0.028) H 04/02/18 05:35 - Assessment/Plan 1. Non-ischemic CMY possible 2ndary to medication and/or HTN - NYHA Classification II now; Stable; Stress test was negative for ischemia. D/c home with LifeVest today due to EF 25-30%. With medical management the EF may improve. He will need a Life-Vest for 90 days with MALAIKA-I and beta-blockers and diuretics. If not then he would be a candidate for an AICD due to the severe decrease in the EF. On Coreg 6.25mg BID, Lisinopril 2.5mg qd, and Lasix 40mg qd . 2. HTN- stable at this time. 3. Hx. of Asthma. He may benefit from a pulmonary consult and /or inhalers. 4. Tobacco and Illicit drug abuse - Smoking, ETOH and Illicit drug cessation education given to the pt. MAR reviewed * The pt is stable to d/c home with LifeVest from Cardiac standpoint. The pt will f/u with Dr Leavitt' office within 2-4 wks. Review of Systems - Review of Systems Constitutional: reports: no symptoms reported EENTM: reports: no symptoms reported Respiratory: reports: no symptoms reported Cardiac (ROS): reports: no symptoms reported ABD/GI: reports: no symptoms reported : reports: no symptoms reported Musculoskeletal: reports: no symptoms reported
[2018-04-04] MEDS: Lisinopril 2.5 MG TAB PO SCH (08:58)
[2018-04-04] MEDS: Aspirin 81 mg Enteric Coated Tablet PO SCH (08:59)
[2018-04-04] MEDS: Carvedilol 6.25 MG TAB PO SCH (08:59)
[2018-04-04] MEDS: Famotidine 20 MG TAB PO SCH (08:59)
[2018-04-04] MEDS ORDERED: Cyanocobalamin (Vitamin B-12) 1,000 MCG TAB PO SCH (09:00)
[2018-04-04] MEDS ORDERED: Folic Acid 1 MG TAB PO SCH (09:00)
[2018-04-04] MEDS ORDERED: Potassium Chloride 20 MEQ TAB PO SCH (09:00)
--- NOTE | 2018-04-04 13:46 | DIS ---
PRIMARY CARE PHYSICIAN: [facility] call admission. DATE OF ADMISSION: 04/02/2018 DATE OF DISCHARGE: 04/04/2018 DISCHARGE DISPOSITION: Home. PRIMARY DISCHARGE DIAGNOSES: 1. Acute systolic heart failure, [facility] stage II. 2. Demand ischemia of myocardium. 3. Hypokalemia. 4. New onset cardiomyopathy, likely nonischemic. 5. Macrocytic anemia. 6. Transaminitis, improved. 7. Acute respiratory failure with hypoxia, improved. SECONDARY DISCHARGE DIAGNOSES: Tobacco abuse disorder, alcohol abuse, macrocytic anemia, gastroesophageal reflux disease, chronic obstructive pulmonary disease. PRIMARY PROCEDURE/OPERATION: None. RADIOLOGICAL INVESTIGATION: Chest x-ray on admission showed cardiomegaly, pulmonary vascular congestion. Echocardiography showed EF 25-30%. SIGNIFICANT LABS: WBC 13.5, hemoglobin 13.9, and platelet 202, MCV 101. INR 1.2, sodium 139, potassium 3.0, BUN 17, creatinine 1.02, calcium 9.3, AST 23, ALT 44, alkaline phosphatase is 90. Troponin 0.047. BNP 823, LDL 100. DISCHARGE MEDICATIONS: Ecotrin 81 mg p.o. daily, Coreg 6.25 mg p.o. b.i.d., vitamin B12 1000 mcg p.o. daily, folic acid 1 mg p.o. daily, Lasix 40 mg p.o. daily, lisinopril 2.5 mg p.o. daily, omeprazole 40 mg p.o. daily, potassium chloride 10 mEq p.o. daily, Aldactone 25 mg p.o. daily. CONTRAINDICATIONS: None. CODE STATUS: FULL CODE. INPATIENT CONSULTANTS: Dr. Leavitt was consulted while in hospital. Dr. Shah was consulted for initial respiratory failure with hypoxia. TEST RESULTS PENDING ON DISCHARGE: None. ALLERGIES: No known drug allergy. DISCHARGE PLAN: Post hospital, the patient is planned for discharge to home after LifeVest and the patient will follow up with [facility] on 04/13 at 2:15 p.m. The patient will follow up with Dr. Leavitt in 2 weeks. HOSPITAL COURSE: The patient is a 53-year-old male with above-mentioned medical problem who has previous alcohol abuse history as well as intermittent drug abuse history who was brought to hospital for increasing shortness of breath. The patient was admitted by Dr. Harrell on 04/02/2018. Please see his H& P for further detail. The patient was having acute systolic heart failure. We did echocardiography which showed EF 25-30%. His chest x-ray showed pulmonary vascular congestion. Initially he required a BiPAP, but subsequently his oxygen saturation improved to normal. He was found with cardiomyopathy and we are suspecting nonischemic cardiomyopathy. Cardiology saw this patient and they are not planning to do any procedure at this point. His transaminitis is also improved after diuretic therapy. We provided the patient counseling about heart failure as well as dietary education and fluid restriction education is given. We are optimizing his heart failure medication during this admission, we are arranging LifeVest before discharge today. The patient eventually will follow up with Dr. Leavitt for repeat echocardiography and then he will need AICD evaluation. The patient is seen and examined at bedside today. I have personally provided patient education about heart failure diet and fluid restriction as well as medication compliance. I also provided counseling to avoid smoking and alcohol abuse. He will follow up with primary care physician as well as Dr. Leavitt as instructed. All new medication prescription sent to his pharmacy. The patient is overall medically stable for discharge today from the hospital. life vest can not be arranged due to his insurance reason, cardiology oked with discharge, pt is also ok with that. work excuse given Total time spent on discharge day 31 minutes MTDD
[2018-04-04 15:11] VITALS: BP 122/88; TEMP 98
== END 2018-04-04 15:51 | disposition home or self-care (01) | DRG 291 ==
LOC: ERS 23:02 → IMCU/EMU 04-02 01:18 → 2NO 04-03 15:02
PROVIDERS: ADMIT Family Medicine; ATTEND Family Medicine
PROC: 5A09357 Assistance with Respiratory Ventilation, Less than 24 Consecutive Hours, Continuous Positive Airway Pressure (ICD-10-PCS; principal; 2018-04-02)
DX: I11.0 Hypertensive heart disease with heart failure (principal); J96.01 Acute respiratory failure with hypoxia; I24.8 Other forms of acute ischemic heart disease; I50.21 Acute systolic (congestive) heart failure; F17.210 Nicotine dependence, cigarettes, uncomplicated; J44.9 Chronic obstructive pulmonary disease, unspecified; J45.909 Unspecified asthma, uncomplicated; Z79.899 Other long term (current) drug therapy; R74.0 Nonspecific elevation of levels of transaminase and lactic acid dehydrogenase [LDH]; I25.118 Atherosclerotic heart disease of native coronary artery with other forms of angina pectoris; E87.6 Hypokalemia; I42.8 Other cardiomyopathies; Z79.82 Long term (current) use of aspirin
CPT/HCPCS: 36415; 71045; 80053; 80061; 82550; 82553; 83735; 83880; 84484; 85007; 85025; 85027; 85610; 85730; 93005; 93017; 93306; 93798; 94640; 94660; 94760; 96374; 96375; 99406; J1940; J2930; J7620

== ENCOUNTER 2018-06-20 21:15 | Inpatient (IN) | payer BC, SELFPAY ==
[2018-06-20 21:36] LABS: #Basophils 0.1 thou/uL (0.0-0.2); #Eosinphils 0.2 thou/uL (0.0-0.7); #Lymphocytes 4.4 thou/uL (1.20-3.40); #Monocytes 0.9 thou/uL (0.11-0.59); #Neutrophils 6.1 thou/uL (1.40-6.50); %Basophils 1.2 % (0.0-1.0); %Eosinophils 2.1 % (0.0-10.0); %Lymphocytes 37.1 % (21.0-51.0); %Monocytes 7.8 % (0.0-10.0); %Neutrophils 51.8 % (42.0-75.0); Hemoglobin 10.1 g/dL (14.0-18.0); Mean Corpuscular HGB CONC 34.6 g/dL (32.0-36.0); Mean Corpuscular Hemoglobin 34.4 pg (27.0-31.0); Mean Corpuscular Volume 99.2 fL (78.0-98.0); Mean Platelet Volume 7.1 fL (7.4-10.4); Platelet Count 195 thou/uL (130-400); RBC Distribution Width 11.2 % (11.5-14.5); Red Blood Cell (RBC) Count 2.95 mill/uL (4.70-6.10); White Blood Cell (WBC) Count 11.7 thou/uL (4.8-10.8)
[2018-06-20 21:41] LABS: INR-International Normal Ratio 1.3; PTT 28.5 SEC (22.9-36.1); Prothrombin Time 16.5 SEC (12.0-14.7)
[2018-06-20 21:49] LABS: ALT (SGPT) 11 U/L (8-55); AST (SGOT) 16 U/L (5-34); Albumin 3.5 g/dL (3.5-5.0); Alkaline Phosphatase 62 U/L (40-150); Anion Gap 16 mmol/L (10-20); BUN (Urea Nitrogen) 17 mg/dL (8.4-25.7); Bilirubin, Total 1.2 mg/dL (0.2-1.2); CK (CPK) 154 U/L (30-200); Calc. Creatinine Clearance 0 mL/min (70-130); Carbon Dioxide 15 mmol/L (22-29); Chloride 107 mmol/L (98-107); Estimated GFR-MDRD 66; Globulin 2.3 g/dL (2.4-3.5); Glucose 116 mg/dL (70-105); Lipase 21 U/L (8-78); Potassium 3.9 mmol/L (3.5-5.1); Protein, Total 5.8 g/dL (6.0-8.3); Sodium 134 mmol/L (136-145)
[2018-06-20 21:51] LABS: CKMB 1.2 ng/mL (0-6.6); Troponin I Less than 0.010 ng/mL (< 0.028)
[2018-06-20 22:16] LABS: Acetaminophen Less than 6.0 mcg/mL (10.0-30.0); Alcohol 107 mg/dL (Less than 10); Salicylate Less than 8.0 mg/dL (15.0-30.0)
--- NOTE | 2018-06-20 22:38 | CON ---
DATE OF CONSULTATION: 06/20/2018 PRIMARY AFLOAT CRYPTOLOGIC MANAGER: Ivanna Leavitt M.D. REASON FOR CONSULTATION: Syncope. HISTORY OF PRESENT ILLNESS: Mr. Carvajal is a 53-year-old -[place]ian gentleman who [facility] after a syncopal spell. He was with his friends and had a syncopal spell hit his head on the floor, has a fracture of his orbital bone with a small hematoma surrounding and edema. On his initi al EKG, there were ST depressions and possible elevation in V2, so Cardiology was consulted for possi ble NE. He has a history of a cardiomyopathy with an EF of 25% on admission back in March. He went ho oh on the LifeVest. He never had a heart catheterization. He only had a stress that showed no ische loreto. He was placed on optimum medical therapy and discharged home on a LifeVest. He apparently has been drinking quite a bit and he is a little intoxicated at the time of our evaluation. PAST MEDICAL HISTORY: 1. Hypertension. 2. Bronchial asthma. 3. Tobacco abuse. 4. Substance abuse, several different substances. 5. Cardiomyopathy, presumed to be nonischemic. OUTPATIENT MEDICATIONS: Per discharge packet include: 1. Aspirin 81 a day. 2. Coreg 6.25 b.i.d. 3. Vitamin B12. 4. Folic acid. 5. Lasix 40 mg a day. 6. Lisinopril 2.5 mg a day. 7. Omeprazole 40 mg a day. 8. Potassium chloride 10 mEq a day. 9. Aldactone 25 mg a day. ALLERGIES: No known drug allergies. FAMILY HISTORY: Noncontributory. SOCIAL HISTORY: Works at [employer]. He smokes, occasional alcohol use, ap parently more than we thought. He admitted in the past to marijuana use, but also was has admitted t o other types of drugs. REVIEW OF SYSTEMS: Unobtainable as the patient is currently intoxicated. PHYSICAL EXAMINATION: VITAL SIGNS: Temperature 98.2, pulse 70, respiratory rate 18, satting 98% on 2 liters nasal cannula. GENERAL: Awake. He is somnolent. He is oriented to person only. He does not know where he is. HEENT: He has a laceration on his right forehead. He has swelling of his right eye consistent with his history of orbital bone fracture. NECK: He has a neck brace in place. LUNGS: Clear to auscultation bilaterally. CARDIOVASCULAR: S1, S2, no S3, S4, no murmurs. ABDOMEN: Soft, positive bowel sounds. EXTREMITIES: No edema. SKIN: Warm and dry. LABORATORY WORK: Currently, white count of 11, hemoglobin of 10.1, hematocrit of 29, platelet count of 195. Coags with a PT of 16, INR 1.3, PTT of 28.5. Chemistries: Sodium is 134, potassium is 3.9, otherwise unremarkable except for creatinine 1.37, GFR of 66, glucose of 116. Troponin I is negativ e x1. CK-MB is negative x1. Albumin of 3.5, lipase of 21. IMAGING: CT of the spine is pending. CT of the brain is pending, but preliminary review with EMILIA meyer shows a fracture of right orbital bone with swelling possibly hematoma around it. There are old cervical fractures. Chest x-ray is pending at the time of dictation. EKG shows left axis deviation, LVH with QRS widening, possible old septal infarct which is just more marked, then his EKG from back in March. There are T-wave inversions in V4 through V6. No obvious ST elevations. There is a suggestion of ST elevation in V2. Repeat EKG shows findings are unchanged. ASSESSMENT AND PLAN: 1. Syncope. 2. Dilated cardiomyopathy, unknown if it is ischemic versus presumed nonischemic. 3. He is wearing a LifeVest; however, there is no blue gel. Already contacted [employer] for the LifeVest and they have not received any downloads since April suggestive of either him not wearing the LifeVest or a problem or a problem with downloads. There will be a manual download coming up. PLAN: 1. Mr. Carvajal has no pain, no chest pain, no other problems other then a little bit of confusion from the fall. 2. No plan on doing an invasive approach at this time given his fracture and his hematoma. His EKG changes even though they are suggestive of ischemia, they are not suggestive of an acute NE. If his troponin remains negative, we will get another one if the troponin goes up significantly the next few hours, we may consider taking him to the lab emergently later today. Otherwise, we will wait for hi s fracture to improve before deciding on an invasive approach. Thank you for letting us participate in the care of your patient. Dr. Leavitt, his primary Cardiology w ill follow in the morning.
--- NOTE | 2018-06-20 22:53 | CT ---
CT BRAIN WITHOUT CONTRAST: INDICATIONS: Laceration with altered mental status. COMPARISON: None. FINDINGS: There is a comminuted fracture involving the right inferior orbital floor and the anterior right maxi llary sinus wall, as well as the right posterior maxillary sinus wall. There is also a mildly depres sed right lateral orbital wall fracture. There is a hemorrhaged layer within the right maxillary sin us. There is contusion involving the right periorbital soft tissues, as well as overlying the right maxil felipe sinus. No acute infarct, hemorrhage, or hydrocephalus is present. The septum pellucidum and third ventricle are midline. IMPRESSION: 1. No acute intracranial abnormality. 2. Right inferior orbital floor and right lateral orbital wall fractures. 3. Right maxillary sinus wall fractures. 4. Right cheek and right periorbital soft tissue contusion. POS: [facility]
--- NOTE | 2018-06-20 22:58 | CT ---
CT CERVICAL SPINE WITHOUT CONTRAST: INDICATIONS: Fall with neck pain. FINDINGS: There are ununited, remote appearing fractures involving the spinous processes of C4, C5, and C6. Th ere is mild multilevel spondylosis of the cervical spine. No acute fracture or subluxation is noted. The craniocervical junction is normal appearing. The lung apices are clear. There is mild emphysema involving both lung apices. The prevertebral soft tissues appear within normal limits. There are scattered vascular calcificatio ns. IMPRESSION: 1. No acute fracture or subluxation demonstrated. 2. Chronic appearing ununited fractures involving the C4 through C6 spinous processes. 3. Multilevel spondylosis of the cervical spine. POS: [facility]
--- NOTE | 2018-06-20 23:00 | RAD ---
AP VIEW CHEST: INDICATIONS: History of STEMI. COMPARISON: Prior exam dated 04/01/2018. FINDINGS: There are numerous cardiac leads overlying the patient. No definite consolidation, pleural effusion, or pneumothorax is evident within the limited exam. Heart size appears within normal limits. No ac [place] osseous abnormality is evident. IMPRESSION: No acute cardiopulmonary abnormality is evident within the limitations of this study. POS: [facility]
[2018-06-21] MEDS ORDERED: Ondansetron HCl/PF 4 MG/2 ML Vial IVP PRN (00:35)
[2018-06-21 00:58] VITALS: BMI 18.9
[2018-06-21 02:42] LABS: #Basophils 0.1 thou/uL (0.0-0.2); #Eosinphils 0.1 thou/uL (0.0-0.7); #Lymphocytes 2.7 thou/uL (1.20-3.40); #Monocytes 0.9 thou/uL (0.11-0.59); #Neutrophils 9.8 thou/uL (1.40-6.50); %Basophils 0.6 % (0.0-1.0); %Eosinophils 0.6 % (0.0-10.0); %Monocytes 6.7 % (0.0-10.0); Hemoglobin 11.3 g/dL (14.0-18.0); Mean Corpuscular HGB CONC 34.9 g/dL (32.0-36.0); Mean Corpuscular Hemoglobin 34.2 pg (27.0-31.0); Mean Corpuscular Volume 97.9 fL (78.0-98.0); Mean Platelet Volume 7.1 fL (7.4-10.4); Platelet Count 213 thou/uL (130-400); RBC Distribution Width 11.2 % (11.5-14.5); White Blood Cell (WBC) Count 13.5 thou/uL (4.8-10.8)
[2018-06-21 03:05] LABS: Troponin I 0.011 ng/mL (< 0.028)
[2018-06-21 03:30] LABS: Anion Gap 18 mmol/L (10-20); BUN (Urea Nitrogen) 15 mg/dL (8.4-25.7); Calc. Creatinine Clearance 62 mL/min (70-130); Calcium 9.2 mg/dL (7.8-10.44); Carbon Dioxide 16 mmol/L (22-29); Chloride 105 mmol/L (98-107); Estimated GFR-MDRD 84; Glucose 96 mg/dL (70-105); Potassium 4.7 mmol/L (3.5-5.1); Sodium 134 mmol/L (136-145)
[2018-06-21] MEDS: Acetaminophen 325 MG TAB PO PRN ×3 (03:59→17:43)
[2018-06-21 05:59] LABS: Hemoglobin 10.9 g/dL (14.0-18.0)
[2018-06-21 06:19] LABS: Troponin I 0.013 ng/mL (< 0.028)
--- NOTE | 2018-06-21 09:31 | PDOC.CTH ---
<Nitza Bellamy - Last Filed: 06/21/18 09:29> Cardiology Progress Note - Subjective The pt seen and examined. No overnight events. No cardiac complaints. He could not f/u with Dr Leavitt' office in 04/2018 due to probation. - Objective Vital Signs Temp Pulse Resp BP BP Pulse Ox 06/21/18 07:50 98.2 F 98 16 115/62 98 06/21/18 04:03 98.9 F 68 12 140/69 100 06/21/18 00:40 97.8 F 78 18 152/76 H 97 Weight 124 lb 11.2 oz 06/20/18 06/21/18 06/22/18 06:59 06:59 06:59 Intake Total 60 Output Total 725 Balance -665 - Physical Examination General/Neuro: alert & oriented x3 Neck: no JVD present Lungs: CTA Heart: RRR Abdomen: soft Extremities: other: (No edema) - Telemetry Telemetry Rhythm: SR 60s - Labs Result Diagrams: 06/21/18 05:25 06/21/18 02:27 Troponin/CKMB CK-MB (CK-2) 1.2 ng/mL (0-6.6) 06/20/18 21:27 Troponin I 0.013 ng/mL (< 0.028) 06/21/18 05:24 - Assessment/Plan 1. Syncopal Episode - stable; cont. to monitor on tele 2. Non-ischemic CMY with EF 25-30% in 03/2018 - On LifeVest;On Coreg 6.25mg BID , Lisinopril 2.5mg qd, and Lasix 40mg PO qd. 3. HTN - stable 4. ETOH abuse - ETOH cessation education given to the pt 5. Tobacco/illicit drug abuse - smoking/illicit drug cessation education given to the pt MAR reviewed Review of Systems - Review of Systems Constitutional: reports: no symptoms reported EENTM: reports: no symptoms reported Respiratory: reports: no symptoms reported Cardiac (ROS): reports: no symptoms reported ABD/GI: reports: no symptoms reported : reports: no symptoms reported Musculoskeletal: reports: no symptoms reported Skin: reports: no symptoms reported <Obdulio Leavitt - Last Filed: 06/21/18 11:23> Cardiology Progress Note - Objective Vital Signs Temp Pulse Resp BP BP BP Pulse Ox 06/21/18 09:46 98 115/62 06/21/18 09:45 115/62 06/21/18 08:00 98.2 F 98 16 98 06/21/18 07:50 98.2 F 98 16 115/62 98 06/21/18 04:03 98.9 F 68 12 140/69 100 06/21/18 00:40 97.8 F 78 18 152/76 H 97 Weight 124 lb 11.2 oz 06/20/18 06/21/18 06/22/18 06:59 06:59 06:59 Intake Total 60 Output Total 725 Balance -665 - Labs Result Diagrams: 06/21/18 05:25 06/21/18 02:27 Troponin/CKMB CK-MB (CK-2) 1.2 ng/mL (0-6.6) 06/20/18 21:27 Troponin I 0.013 ng/mL (< 0.028) 06/21/18 05:24 - Assessment/Plan Pt. seen and eval. by me. I agree with the A/P by the ELECTRIC MOTOR ASSEMBLER. He apparently was recently incarcerated again after not following protocol for his earlier probation. He was just [facility] when he started drinking and then had the syncopal episode. It is unclear if this was due to the ETOH or V-tach. He says that he was wearing the vest but it is questionable if the batteries were charged. I will wait to see if any info will be obtained from the download. I am suspicios that his CMY is related to his ETOH abuse and his other illegal drugs.
[2018-06-21] MEDS: Enoxaparin Sodium 40 MG/0.4 ML SYRINGE SC SCH (09:45)
[2018-06-21] MEDS: Carvedilol 6.25 MG TAB PO SCH ×2 (09:45→17:42)
[2018-06-21] MEDS: Aspirin 81 mg Enteric Coated Tablet PO SCH (09:45)
[2018-06-21] MEDS: Folic Acid 1 MG TAB PO SCH (09:45)
[2018-06-21] MEDS: Furosemide 40 MG TAB PO SCH (09:45)
[2018-06-21] MEDS: Lisinopril 2.5 MG TAB PO SCH (09:46)
[2018-06-21] MEDS: Spironolactone 25 MG TAB PO SCH (09:46)
--- NOTE | 2018-06-21 12:12 | HP ---
PRIMARY CARE PHYSICIAN: Unknown. TIME OF EVALUATION: 12:00 a.m. CODE STATUS: FULL CODE. CHIEF COMPLAINT: Syncope. HISTORY OF PRESENT ILLNESS: This is a 53-year-old male patient. History is gathered from ER, the pa larry does not recall what happened, although, he is alert and oriented. The patient was brought to the hospital after having the syncopal episode, symptoms were severe, certainly, no clear triggers, n o alleviating factors, happened when the patient was going to the car from his friend's house, he was on the ground for about 15 minutes, diaphoretic, as an outpatient has a very low EF and is on LifeVe st defibrillator. REVIEW OF SYSTEMS: Unable to obtain. The patient does not recall. PAST MEDICAL HISTORY: Hypertension, asthma, CHF, with low EF, wearing LifeVest. PAST SURGICAL HISTORY: Circumcised at 19. PSYCHIATRIC HISTORY: No psych history. SOCIAL HISTORY: The patient used tobacco, smokes cigarettes, half a pack per day. Patient drinks so cially every week. DRUG ALLERGIES: No known drug allergies. REPORTED MEDICATIONS: Aspirin, carvedilol, folic acid, potassium, lisinopril. PHYSICAL EXAMINATION: VITAL SIGNS: On presentation, blood pressure 102/47, heart rate 101, respiratory rate was 20, temper ature 98.4, oxygen saturation 91% on room air. GENERAL: This patient is alert and oriented, in no acute distress. HEENT: Eyes, the patient has periorbital trauma on the right side, wearing a neck collar, moist oral mucosa, anicteric. NECK: No JVD. RESPIRATORY: Bilateral air entry. No rales, no wheezing. Symmetric expansion. CARDIOVASCULAR: Normal rate, regular rhythm. No murmurs, no gallop. No edema. ABDOMEN: Soft, normal bowel sounds. MUSCULOSKELETAL: Baseline range of motion and strength except for the neck area within the neck raphael ar. SKIN: Warm and dry. No pallor or rashes except for excoriation from trauma in the periorbital area. NEUROLOGIC: Baseline sensorium. No evidence of any focal weakness. Baseline speech. Cranial nerve s seem to be intact. PSYCHIATRIC: The patient is in good mood. No anxiety, oriented, optimal judgment. LABORATORY DATA AND IMAGING: EKG was reviewed. The patient has normal sinus rhythm with a rate of 1 00, KY 150, QRS 118, QT corrected 497. Ventricular hypertrophy with QRS widening, ST-T wave abnormal ities, considered inferolateral ischemia. CT head, the patient has no acute intracranial abnormaliti es, right inferior orbital floor or right lateral orbital wall fractures, right maxillary sinus wall fractures, right cheek and right periorbital soft tissue contusion. Cervical spine CT was reviewed. The patient has no acute fracture or subluxation, chronic appearance ununited fracture involving C4 through C6 spinous processes, multilevel spondylosis of the cervical spine. Chest x-ray was reviewed . The patient had no acute cardiopulmonary abnormality within the limitations of his thigh. Labs were reviewed. The patient has white count 11.7, hemoglobin 10.1, platelet count 195. Sodium 1 34, potassium 3.9, chloride 107, carbon dioxide 15, anion gap 16, BUN 17, creatinine 1.37. Previous creatinine 0.9, GFR 66. Glucose 116. LFTs were normal. Toxicology, plasma alcohol 107. ASSESSMENT AND PLAN: The patient will be placed in the hospital with the following medical problems: 1. Syncope, unclear etiology, the patient has increased risk factors given the history of congestive heart failure with a very low ejection fraction, wearing LifeVest, Dr. Powers had seen the patient, without recommendations. We will monitor on tele. For now, the patient is stable. 2. History of systolic congestive heart failure, this probably seems to be stable, we will monitor, we will adjust treatment as needed. We will reconcile home medications. 3. Acute kidney injury. The patient presented with creatinine 1.37, the previous examination was 0. 7, we will monitor, could be related to diuresis, we will adjust treatment as needed. 4. Hyponatremia, sodium 134, this is mild, no need for any acute intervention at this point. 5. Microcytic anemia with a hemoglobin of 10, this is new. The patient, on previous admission, had hemoglobin of 13, likely this was the cause for the symptoms; however, we will monitor hemoglobin. T here is no evidence of any acute bleeding at this point. 6. History of hypertension, reconcile home meds, adjustment treatment as needed. 7. Alcohol intoxication. Alcohol is elevated, likely related to presentation. 8. Deep venous thrombosis prophylaxis.
[2018-06-21 12:14] LABS: Hemoglobin 11.6 g/dL (14.0-18.0)
--- NOTE | 2018-06-21 13:29 | CON ---
DATE OF CONSULTATION: 06/21/2018 REASON FOR CONSULTATION: Facial fractures. CHIEF COMPLAINT: Syncope, facial pain. HISTORY OF PRESENT ILLNESS: This is a 53-year-old male with history of significant cardiac disease, who had an apparent syncopal episode, fell and hit his face, was seen in the ER, was disoriented on a rrival and did not know what happened. The patient has a history of very low EF and is currently use s a LifeVest defibrillator. REVIEW OF SYSTEMS: The patient complains of some right facial pain and complains of no double vision , blurred vision, difficulty chewing, or numbness. PAST MEDICAL HISTORY: Hypertension, asthma, CHF. PAST SURGICAL HISTORY: None. PSYCHIATRIC HISTORY: None. SOCIAL HISTORY: Half-pack a day, drinks socially. DRUG ALLERGIES: No known drug allergies. PHYSICAL EXAMINATION: VITAL SIGNS: Patient's vital signs are currently stable. He is afebrile. GENERAL: He is awake, alert, and oriented x3. HEENT: He does have a hematoma above the right supraorbital rim. He has some dried crust of blood a long the right lateral canthus. He has no periorbital edema or ecchymoses. He has no hyphema. His pupils are equal, round, and reactive to light and accommodation bilaterally. His extraocular moveme nts are intact. He has no blurred vision. He has good length lid competence bilaterally. He does h ave a small linear laceration of right eyelid, which has been closed in the ER. IMAGING: CT scan of the face shows a right orbital rim and floor fracture in the maxillary sinus. T hese appear nondisplaced. However, cannot be fully visualized on the CT head. ASSESSMENT: A 53-year-old male with severe CHF with very low EF with multiple right-sided facial fra ctures. PLAN: At this point, these fractures appear to not need surgical intervention, but we will continue to follow. Please have patient follow up in my office in 1 week.
--- NOTE | 2018-06-21 13:40 | PDOC.EVN ---
Event Note - Event Note Event Note: Chart reviewed, patient seen. Will follow.
[2018-06-21 18:12] LABS: Hemoglobin 12.4 g/dL (14.0-18.0)
[2018-06-21 23:57] LABS: Hemoglobin 11.7 g/dL (14.0-18.0)
[2018-06-22] MEDS: Acetaminophen 325 MG TAB PO PRN (03:25)
[2018-06-22 05:31] LABS: Hemoglobin 11.5 g/dL (14.0-18.0)
[2018-06-22] MEDS: Carvedilol 6.25 MG TAB PO SCH (08:46)
[2018-06-22] MEDS: Aspirin 81 mg Enteric Coated Tablet PO SCH (08:46)
[2018-06-22] MEDS: Furosemide 40 MG TAB PO SCH (08:46)
[2018-06-22] MEDS: Lisinopril 2.5 MG TAB PO SCH (08:47)
[2018-06-22] MEDS: Folic Acid 1 MG TAB PO SCH (08:47)
[2018-06-22] MEDS: Spironolactone 25 MG TAB PO SCH (08:48)
[2018-06-22] MEDS: Enoxaparin Sodium 40 MG/0.4 ML SYRINGE SC SCH (08:48)
[2018-06-22 11:50] VITALS: BP 111/58; TEMP 98.8
--- NOTE | 2018-06-22 15:10 | PDOC.PN ---
- Subjective Encounter Start Date: 06/22/18 Encounter Start Time: 08:20 Pt seen for followup re: syncope. Denies chest pain, shortness of breath, fevers or chills. - Objective Resuscitation Status: Resuscitation Status FULL:Full Resuscitation MAR Reviewed: Yes Vital Signs & Weight: Vital Signs (12 hours) Temp Pulse Resp BP Pulse Ox 06/22/18 11:47 98.8 F 61 14 111/58 L 98 06/22/18 08:47 71 06/22/18 08:44 98.5 F 71 16 107/54 L 96 06/22/18 04:00 98.3 F 71 16 98/57 L 96 Weight Admit Weight 124 lb 11.2 oz Weight 122 lb I&O: 06/21/18 06/22/18 06/23/18 06:59 06:59 06:59 Intake Total 60 480 Output Total 725 Balance -665 480 Result Diagrams: 06/22/18 12:45 06/21/18 02:27 EKG Reviewed by me: Yes (Tele: NSR) Phys Exam - Physical Examination Constitutional: NAD HEENT: moist MMs, sclera anicteric, oral pharynx no lesions, 2+ tonsils R eye bruise Neck: no nodes, no JVD, supple, full ROM Respiratory: no wheezing, no rales, no rhonchi, clear to auscultation bilateral Cardiovascular: RRR, no rub S1, S2 Gastrointestinal: soft, non-tender, no distention, positive bowel sounds Neurological: moves all 4 limbs Psychiatric: normal affect Deviation from normal: Oriented to person and place, not to time Dx/Plan (1) Syncope Code(s): R55 - SYNCOPE AND COLLAPSE Status: Acute Comment: secondary to alcohool use vs cardiac etiology (2) COPD (chronic obstructive pulmonary disease) Status: Chronic Qualifiers: COPD type: chronic bronchitis Chronic bronchitis type: unspecified Qualified Code(s): J42 - Unspecified chronic bronchitis Comment: stable (3) Cardiomyopathy Code(s): I42.9 - CARDIOMYOPATHY, UNSPECIFIED Status: Chronic Comment: Pt has lifevest (4) GERD (gastroesophageal reflux disease) Code(s): K21.9 - GASTRO-ESOPHAGEAL REFLUX DISEASE WITHOUT ESOPHAGITIS Status: Chronic Comment: stable - Plan * . Review of Systems - Review of Systems Constitutional: negative: fever, chills, sweats, weakness, malaise Respiratory: negative: Cough, Shortness of Breath, SOB with Excertion, Pleuritic Pain, Wheezing Cardiovascular: negative: chest pain, palpitations, orthopnea, paroxysmal nocturnal dyspnea, edema, light headedness Gastrointestinal: negative: Nausea, Vomiting, Abdominal Pain, Diarrhea, Constipation, Melena, Hematochezia Genitourinary: negative: Dysuria, Frequency, Incontinence, Hematuria, Retention Skin: negative: Rash, Lesions, [place], Bruising - Medications/Allergies Allergies/Adverse Reactions: Allergies Allergy/AdvReac Type Severity Reaction Status Date / Time No Known Allergies Allergy Verified 06/21/18 00:53 Medications: Current Medications Acetaminophen (Tylenol) 650 mg PO Q4H PRN PRN Reason: Headache/Fever or Pain Last Admin: 06/22/18 03:25 Dose: 650 mg Aspirin (Ecotrin) 81 mg PO DAILY [facility] Last Admin: 06/22/18 08:46 Dose: 81 mg Carvedilol (Coreg) 6.25 mg PO BID-[facility] Last Admin: 06/22/18 08:46 Dose: 6.25 mg Enoxaparin Sodium (Lovenox) 40 mg SC 0900 [facility] Last Admin: 06/22/18 08:48 Dose: 40 mg Folic Acid (Folvite) 1 mg PO DAILY [facility] Last Admin: 06/22/18 08:47 Dose: 1 mg Furosemide (Lasix) 40 mg PO DAILY-[facility] Last Admin: 06/22/18 08:46 Dose: 40 mg Lisinopril (Zestril) 2.5 mg PO DAILY [facility] Last Admin: 06/22/18 08:47 Dose: 2.5 mg Ondansetron HCl (Zofran) 4 mg IVP Q6H PRN PRN Reason: Nausea/Vomiting Pantoprazole Sodium (Protonix) 40 mg PO DAILY [facility] Last Admin: 06/22/18 08:45 Dose: 40 mg Spironolactone (Aldactone) 25 mg PO DAILY [facility] Last Admin: 06/22/18 08:48 Dose: 25 mg
--- NOTE | 2018-06-22 17:14 | PDOC.CTH ---
<Nitza Bellamy - Last Filed: 06/22/18 17:12> Cardiology Progress Note - Subjective The pt seen and examined. No overnight events. No cardiac complaints. - Objective Vital Signs Temp Pulse Resp BP Pulse Ox 06/22/18 11:47 98.8 F 61 14 111/58 L 98 06/22/18 08:47 71 06/22/18 08:44 98.5 F 71 16 107/54 L 96 Admit Weight 124 lb 11.2 oz Weight 122 lb 06/21/18 06/22/18 06/23/18 06:59 06:59 06:59 Intake Total 60 480 Output Total 725 Balance -665 480 - Physical Examination General/Neuro: alert & oriented x3 Lungs: CTA Heart: RRR Extremities: other: (No edema) - Telemetry Telemetry Rhythm: SR - Labs Result Diagrams: 06/22/18 12:45 06/21/18 02:27 Troponin/CKMB CK-MB (CK-2) 1.2 ng/mL (0-6.6) 06/20/18 21:27 Troponin I 0.013 ng/mL (< 0.028) 06/21/18 05:24 - Assessment/Plan 1. Syncopal Episode - stable; cont. to monitor on tele 2. Non-ischemic CMY with EF 25-30% in 03/2018 - On LifeVest;On Coreg 6.25mg BID , Lisinopril 2.5mg qd, and Lasix 40mg PO qd. 3. HTN - stable 4. ETOH abuse - ETOH cessation education given to the pt 5. Tobacco/illicit drug abuse - smoking/illicit drug cessation education given to the pt MAR reviewed * from Cardiac standpoint, the pt is stable to d/c home. The pt will f/u with Dr Leavitt' office within 2-4 wks with Echo. Review of Systems - Review of Systems Constitutional: reports: no symptoms reported EENTM: reports: no symptoms reported Respiratory: reports: no symptoms reported Cardiac (ROS): reports: no symptoms reported ABD/GI: reports: no symptoms reported <Obdulio Leavitt - Last Filed: 06/22/18 17:50> Cardiology Progress Note - Objective Vital Signs Temp Pulse Resp BP Pulse Ox 06/22/18 11:47 98.8 F 61 14 111/58 L 98 06/22/18 08:47 71 06/22/18 08:44 98.5 F 71 16 107/54 L 96 Admit Weight 124 lb 11.2 oz Weight 122 lb 06/21/18 06/22/18 06/23/18 06:59 06:59 06:59 Intake Total 60 480 1200 Output Total 725 Balance -139 786 0210 - Labs Result Diagrams: 06/22/18 12:45 06/21/18 02:27 Troponin/CKMB CK-MB (CK-2) 1.2 ng/mL (0-6.6) 06/20/18 21:27 Troponin I 0.013 ng/mL (< 0.028) 06/21/18 05:24
--- NOTE | 2018-06-23 01:01 | DIS ---
DATE OF ADMISSION: 06/20/2018 DATE OF DISCHARGE: 06/22/2018 PRIMARY CARE PHYSICIAN: Curtis Archibald DISCHARGE DIAGNOSES: 1. Syncope. 2. Facial fractures. CONDITION OF PATIENT ON THE DAY OF DISCHARGE: Stable. I assessed Mr. Carvajal on the day of discharge. Please refer to my daily hospitalist progress note for further details regarding this [id number] encounter. CONSULTATIONS DURING THIS HOSPITALIZATION: Cardiology, Dr. Powers; and Oral Surgery, Dr. Rocha. DISCHARGE MEDICATIONS: Aspirin 81 mg daily, Coreg 6.25 mg 2 times a day, vitamin B12 1000 mcg daily, folic acid 1 mg daily, Lasix 40 mg daily, lisinopril 2.5 mg daily, Prilosec 40 mg daily, potassium c hloride 10 mEq daily, spironolactone 25 mg daily. HOSPITAL COURSE: Mr. Carvajal is a pleasant 53-year-old gentleman who was admitted to [facility] on 06/20/2018 following a syncopal episode. Please refer to Dr. Varela's history and physical note dated 06/21/2018 for further details. He was seen by oral surgeon for facial fract ures. According to oral surgery, these fractures do not need surgical intervention at this time, but the patient needs to follow up in their office in 1 week. In terms of syncopal episode, it was uncl ear whether this was secondary to excessive alcohol use or a true cardiac event. Cardiology service was going to review the data from [facility]. At the time of this dictation, they have cleared him for discharge home and to follow up in their office. Many thanks for allowing me to participate in your patient's care. Please feel free to contact me wi th any questions or concerns. DISCHARGE DESTINATION: Home. TOTAL AMOUNT OF TIME SPENT COORDINATING THIS DISCHARGE: 33 minutes.
== END 2018-06-22 17:07 | disposition home or self-care (01) | DRG 312 ==
LOC: ERS 21:15 → 2NO 23:18
PROVIDERS: ADMIT Hospitalist; ATTEND Hospitalist
DX: R55 Syncope and collapse (principal); S02.401A Maxillary fracture, unspecified side, initial encounter for closed fracture; S02.31XA Fracture of orbital floor, right side, initial encounter for closed fracture; N17.9 Acute kidney failure, unspecified; I50.20 Unspecified systolic (congestive) heart failure; E87.1 Hypo-osmolality and hyponatremia; I42.0 Dilated cardiomyopathy; F17.210 Nicotine dependence, cigarettes, uncomplicated; F19.10 Other psychoactive substance abuse, uncomplicated; Z71.6 Tobacco abuse counseling; J44.9 Chronic obstructive pulmonary disease, unspecified; K21.9 Gastro-esophageal reflux disease without esophagitis; I11.0 Hypertensive heart disease with heart failure; D50.9 Iron deficiency anemia, unspecified; F10.129 Alcohol abuse with intoxication, unspecified; S01.111A Laceration without foreign body of right eyelid and periocular area, initial encounter
CPT/HCPCS: 12011; 36415; 70450; 71045; 72125; 80048; 80053; 80307; 82550; 82553; 83690; 84484; 85018; 85025; 85610; 85730; 86850; 86900; 86901; 90471; 93005; 94760; 96374; J1650

== ENCOUNTER 2018-09-22 10:34 | Outpatient (CLI) | payer BC ==
[2018-09-22 11:51] LABS: Hemoglobin 15.4 g/dL (14.0-18.0); Mean Corpuscular HGB CONC 31.1 g/dL (32.0-36.0); Mean Corpuscular Hemoglobin 32.1 pg (27.0-31.0); Mean Platelet Volume 7.9 fL (7.4-10.4); Platelet Count 270 thou/uL (130-400); RBC Distribution Width 11.3 % (11.5-14.5); White Blood Cell (WBC) Count 12.3 thou/uL (4.8-10.8)
[2018-09-22 12:12] LABS: INR-International Normal Ratio 1.1
[2018-09-22 12:13] LABS: Anion Gap 11 mmol/L (10-20); BUN (Urea Nitrogen) 11 mg/dL (8.4-25.7); Calc. Creatinine Clearance 0 mL/min (70-130); Calcium 9.7 mg/dL (7.8-10.44); Carbon Dioxide 28 mmol/L (22-29); Chloride 103 mmol/L (98-107); Estimated GFR-MDRD Greater than 90; Glucose 89 mg/dL (70-105); Potassium 4.4 mmol/L (3.5-5.1); Sodium 138 mmol/L (136-145)
--- NOTE | 2018-09-22 17:17 | EKG ---
Test Reason : Blood Pressure : / mmHG Vent. Rate : 043 BPM Atrial Rate : 043 BPM P-R Int : 144 ms QRS Dur : 102 ms QT Int : 508 ms P-R-T Axes : 065 019 -43 degrees QTc Int : 429 ms Marked sinus bradycardia Voltage criteria for left ventricular hypertrophy Cannot rule out Septal infarct , age undetermined Abnormal ECG When compared with ECG of 20-JUN-2018 21:48, Significant changes have occurred Confirmed by DR. Paul BULLARD ([id number]) on 09/22/2018 5:17:08 PM Referred By: BESSIE Confirmed By:DR. Paul BULLARD
== END 2018-09-22 10:35 | disposition home or self-care (01) ==
LOC: LABBT 10:34
PROVIDERS: ATTEND Internal Medicine Cardiovascular Disease
DX: Z01.818 Encounter for other preprocedural examination (principal); I50.9 Heart failure, unspecified
CPT/HCPCS: 80048; 85027; 85610; 85730; 93005; 93010

== ENCOUNTER → 2018-09-26 | Day surgery (SDC) | payer BC ==
[2018-09-22 11:01] VITALS: BMI 22.8
[~2018-09-26] MED LIST: CEFAZOLIN 1 GM VIAL ONE; Carvedilol 3.125 MG TAB ONE; Fentanyl 100 MCG/2 ML VIAL ONE; HYDROcodone/Acetaminophen 5/325 mg Tablet ONE; Iopamidol 370 76% 50 ML VIAL FS ONE; Labetalol HCl 100 MG/20 ML VIAL ONE; Lisinopril 2.5 MG TAB ONE; Midazolam HCl 2 mg/2 ml Vial ONE; Morphine 4 MG/ML VIAL ONE; PHENYLEPHRINE-NS 100 MCG/ML 10 ML SYRINGE ONE; Propofol 500 MG/50 ML VIAL ONE
--- NOTE | 2018-09-26 14:32 | RAD ---
SINGLE VIEW OF THE CHEST: Comparison: 06-20-18 History: Pacemaker placement. FINDINGS: Single view of the chest shows a normal sized cardiomediastinal silhouette. A left subclavian pacemak er is seen with its lead in the right ventricle. No pneumothorax is seen. There is no evidence of con solidation, mass, or pleural effusion. IMPRESSION: Status post pacemaker placement without evidence complication. POS: TPC
== END ==
LOC: CCL 07:28
PROVIDERS: ATTEND Internal Medicine Cardiovascular Disease
PROC: 0JH608Z Insertion of Defibrillator Generator into Chest Subcutaneous Tissue and Fascia, Open Approach (ICD-10-PCS; principal; 2018-09-26)
PROC: 02HK3KZ Insertion of Defibrillator Lead into Right Ventricle, Percutaneous Approach (ICD-10-PCS; principal; 2018-09-26)
DX: I50.22 Chronic systolic (congestive) heart failure (principal); I42.8 Other cardiomyopathies; Z79.82 Long term (current) use of aspirin; Z79.899 Other long term (current) drug therapy
CPT/HCPCS: 33249; 36005; 71045; 75820; 96374; C1722; C1777; J0690; J2250; J2270; J2704; J3010; J3490

== ENCOUNTER 2019-10-03 09:50 | Emergency (ER) | payer OTHER ==
[2019-10-03 10:49] LABS: Bilirubin Negative (Negative); Blood, Urine Negative (Negative); Clarity Clear (Clear); Glucose, Urine (Dipstick) Normal (Negative); Leukocyte Negative Leu/uL (Negative); Nitrite Negative (Negative); Protein, Urine (Dipstick) Negative (Neg-Trace); Urobilinogen Normal mg/dL (Less than 2)
[2019-10-03 10:56] LABS: #Basophils 0.1 thou/uL (0.0-0.2); #Eosinphils 0.2 thou/uL (0.0-0.7); #Lymphocytes 2.5 thou/uL (1.20-3.40); #Monocytes 0.6 thou/uL (0.11-0.59); #Neutrophils 5.3 thou/uL (1.40-6.50); %Basophils 0.7 % (0.0-1.0); %Eosinophils 2.2 % (0.0-10.0); %Monocytes 6.5 % (0.0-10.0); %Neutrophils 61.6 % (42.0-75.0); Hemoglobin 15.8 g/dL (14.0-18.0); Mean Corpuscular HGB CONC 34.3 g/dL (32.0-36.0); Mean Corpuscular Hemoglobin 34.4 pg (27.0-31.0); Mean Platelet Volume 8.7 fL (7.4-10.4); Platelet Count 203 thou/uL (130-400); RBC Distribution Width 11.1 % (11.5-14.5); White Blood Cell (WBC) Count 8.6 thou/uL (4.8-10.8)
--- NOTE | 2019-10-03 11:02 | RAD ---
PORTABLE CHEST 1 VIEW: Date: 10/03/19 Time: 1042 hours HISTORY: Altered mental status. FINDINGS: Comparison made with exam of 09/26/18. Left-sided pacemaker device remains in place. The heart size is normal. The lungs are well expanded w ithout lobar consolidation, pneumothoraces, or pleural effusions. IMPRESSION: No acute process. POS: OFF
[2019-10-03 11:24] LABS: ALT (SGPT) 14 U/L (8-55); AST (SGOT) 18 U/L (5-34); Albumin 4.7 g/dL (3.5-5.0); Alkaline Phosphatase 90 U/L (40-110); Anion Gap 14 mmol/L (10-20); BUN (Urea Nitrogen) 25 mg/dL (8.4-25.7); Bilirubin, Total 1.3 mg/dL (0.2-1.2); CK (CPK) 79 U/L (30-200); Calc. Creatinine Clearance 0 mL/min (70-130); Calcium 9.8 mg/dL (7.8-10.44); Carbon Dioxide 26 mmol/L (22-29); Chloride 101 mmol/L (98-107); Estimated GFR-MDRD 67; Globulin 3.6 g/dL (2.4-3.5); Glucose 101 mg/dL (70-105); Lipase 28 U/L (8-78); Potassium 4.7 mmol/L (3.5-5.1); Protein, Total 8.3 g/dL (6.0-8.3); Sodium 136 mmol/L (136-145)
--- NOTE | 2019-10-13 16:13 | EKG ---
Test Reason : SYNCOPE Blood Pressure : / mmHG Vent. Rate : 063 BPM Atrial Rate : 063 BPM P-R Int : 144 ms QRS Dur : 102 ms QT Int : 440 ms P-R-T Axes : 067 -50 -05 degrees QTc Int : 450 ms Normal sinus rhythm Left anterior fascicular block Voltage criteria for left ventricular hypertrophy Cannot rule out Septal infarct , age undetermined Abnormal ECG Confirmed by PRISCILA FUENTES, KESHA ([id number]), magazine editor JACQUIE MATA ([id number]) on 10/13/2019 4:12:41 PM Referred By: PRISCILA Confirmed By:KESHA FRANCOIS MD
== END 2019-10-03 12:04 | disposition home or self-care (01) ==
LOC: ERS 09:50
DX: E86.0 Dehydration (principal); I95.9 Hypotension, unspecified; R19.7 Diarrhea, unspecified; I11.0 Hypertensive heart disease with heart failure; I50.9 Heart failure, unspecified; J45.909 Unspecified asthma, uncomplicated; F17.210 Nicotine dependence, cigarettes, uncomplicated
CPT/HCPCS: 36415; 71045; 80053; 81003; 82550; 83605; 83690; 83880; 84484; 85025; 85379; 87040; 87045; 87046; 87324; 87328; 87329; 87427; 87449; 87804; 93005; 96360

== ENCOUNTER 2020-02-03 12:12 | Emergency (ER) | payer OTHER ==
[2020-02-03 13:35] LABS: #Basophils 0.1 thou/uL (0.0-0.2); #Eosinphils 0.2 thou/uL (0.0-0.7); #Lymphocytes 3.7 thou/uL (1.20-3.40); #Monocytes 0.7 thou/uL (0.11-0.59); #Neutrophils 4.1 thou/uL (1.40-6.50); %Basophils 1.5 % (0.0-1.0); %Eosinophils 2.2 % (0.0-10.0); %Lymphocytes 41.6 % (21.0-51.0); %Monocytes 8.1 % (0.0-10.0); %Neutrophils 46.6 % (42.0-75.0); Hemoglobin 15.9 g/dL (14.0-18.0); Mean Corpuscular HGB CONC 31.9 g/dL (32.0-36.0); Mean Corpuscular Hemoglobin 33.1 pg (27.0-31.0); Mean Platelet Volume 9.7 fL (7.4-10.4); Platelet Count 202 thou/uL (130-400); RBC Distribution Width 10.9 % (11.5-14.5); White Blood Cell (WBC) Count 8.8 thou/uL (4.8-10.8)
--- NOTE | 2020-02-03 13:49 | RAD ---
Exam: Chest one view HISTORY:Chest pain. Comparison: 10/03/2019 FINDINGS: Pacing device: Stable single lead left-sided defibrillator. Cardiac silhouette: Normal Aorta: Unremarkable Pulmonary vessels: Normal Costophrenic angles: Clear LUNGS: No masses or consolidation. Pneumothorax: None Osseous abnormalities: None IMPRESSION: No acute cardiopulmonary process.
[2020-02-03 14:06] LABS: ALT (SGPT) 15 U/L (8-55); AST (SGOT) 26 U/L (5-34); Albumin 4.6 g/dL (3.5-5.0); Alkaline Phosphatase 83 U/L (40-110); Anion Gap 17 mmol/L (10-20); BUN (Urea Nitrogen) 13 mg/dL (8.4-25.7); Bilirubin, Total 2.1 mg/dL (0.2-1.2); Calc. Creatinine Clearance 0 mL/min (70-130); Calcium 10.1 mg/dL (7.8-10.44); Carbon Dioxide 29 mmol/L (22-29); Chloride 101 mmol/L (98-107); Estimated GFR-MDRD 62; Globulin 3.7 g/dL (2.4-3.5); Glucose 118 mg/dL (70-105); Potassium 5.8 mmol/L (3.5-5.1); Protein, Total 8.3 g/dL (6.0-8.3); Sodium 141 mmol/L (136-145)
[2020-02-03 15:35] LABS: Anion Gap 13 mmol/L (10-20); BUN (Urea Nitrogen) 13 mg/dL (8.4-25.7); Calc. Creatinine Clearance 0 mL/min (70-130); Calcium 9.6 mg/dL (7.8-10.44); Carbon Dioxide 31 mmol/L (22-29); Chloride 101 mmol/L (98-107); Estimated GFR-MDRD 69; Glucose 112 mg/dL (70-105); Potassium 3.9 mmol/L (3.5-5.1); Sodium 141 mmol/L (136-145)
[2020-02-03 15:42] LABS: Troponin I 0.022 ng/mL (< 0.028)
[2020-02-03] MEDS ORDERED: Aspirin Chewable 81 MG TAB ONE (16:06)
== END 2020-02-03 18:01 ==
LOC: ERS 12:12
DX: R07.9 Chest pain, unspecified (principal); I11.0 Hypertensive heart disease with heart failure; I50.9 Heart failure, unspecified; F17.210 Nicotine dependence, cigarettes, uncomplicated; J45.909 Unspecified asthma, uncomplicated; Z79.899 Other long term (current) drug therapy
CPT/HCPCS: 36415; 71045; 80053; 84484; 85025; 93005

== ENCOUNTER 2020-04-07 08:43 | Emergency (ER) | payer OTHER ==
[2020-04-07 09:16] LABS: #Eosinphils 0.1 thou/uL (0.0-0.7); #Lymphocytes 1.7 thou/uL (1.20-3.40); #Monocytes 0.9 thou/uL (0.11-0.59); #Neutrophils 5.2 thou/uL (1.40-6.50); %Basophils 0.6 % (0.0-1.0); %Eosinophils 1.7 % (0.0-10.0); %Lymphocytes 21.7 % (21.0-51.0); %Monocytes 10.8 % (0.0-10.0); %Neutrophils 65.2 % (42.0-75.0); Hemoglobin 14.8 g/dL (14.0-18.0); Mean Corpuscular HGB CONC 31.1 g/dL (32.0-36.0); Mean Corpuscular Hemoglobin 32.4 pg (27.0-31.0); Mean Platelet Volume 8.6 fL (7.4-10.4); Platelet Count 209 thou/uL (130-400); RBC Distribution Width 11.7 % (11.5-14.5); Red Blood Cell (RBC) Count 4.57 mill/uL (4.70-6.10)
[2020-04-07 09:41] LABS: ALT (SGPT) 13 U/L (8-55); AST (SGOT) 23 U/L (5-34); Albumin 3.8 g/dL (3.5-5.0); Alkaline Phosphatase 87 U/L (40-110); Anion Gap 13 mmol/L (10-20); BUN (Urea Nitrogen) 7 mg/dL (8.4-25.7); Bilirubin, Total 1.1 mg/dL (0.2-1.2); Calc. Creatinine Clearance 0 mL/min (70-130); Calcium 8.9 mg/dL (7.8-10.44); Carbon Dioxide 22 mmol/L (22-29); Chloride 104 mmol/L (98-107); Estimated GFR-MDRD 86; Globulin 3.3 g/dL (2.4-3.5); Glucose 157 mg/dL (70-105); Lipase 19 U/L (8-78); Potassium 4.1 mmol/L (3.5-5.1); Protein, Total 7.1 g/dL (6.0-8.3); Sodium 135 mmol/L (136-145)
[2020-04-07] MEDS ORDERED: Ondansetron PF 4 MG/2 ML Vial ONE (10:31)
[2020-04-07] MEDS ORDERED: Ketorolac Tromethamine 30 MG/ML VIAL ONE (10:31)
[2020-04-07] MEDS ORDERED: Dexamethasone 10 MG/ML VIAL ONE (10:31)
[2020-04-07 10:57] LABS: Bacteria/HPF None Seen HPF (None Seen); Bilirubin Negative (Negative); Blood, Urine 2+ (Negative); Clarity Clear (Clear); Glucose, Urine (Dipstick) Normal (Negative); Leukocyte Negative Leu/uL (Negative); Nitrite Negative (Negative); Protein, Urine (Dipstick) 50 mg/dL (Neg-Trace); RBC/HPF 21-50 HPF (0-3); Squamous Epithelial 0-3 HPF (0-3)
== END 2020-04-07 11:20 | disposition home or self-care (01) ==
LOC: ERS 08:43
DX: K62.5 Hemorrhage of anus and rectum (principal); L25.9 Unspecified contact dermatitis, unspecified cause; I11.0 Hypertensive heart disease with heart failure; I50.9 Heart failure, unspecified; J45.909 Unspecified asthma, uncomplicated; F17.210 Nicotine dependence, cigarettes, uncomplicated; Z79.899 Other long term (current) drug therapy; Z79.891 Long term (current) use of opiate analgesic
CPT/HCPCS: 80053; 81003; 81015; 83605; 83690; 85025; 96361; 96374; 96375; J1100; J1885; J2405

== ENCOUNTER 2020-08-26 08:17 | Emergency (ER) | payer OTHER, SELFPAY ==
[2020-08-26 09:01] LABS: #Basophils 0.1 thou/uL (0.0-0.2); #Eosinphils 0.1 thou/uL (0.0-0.7); #Lymphocytes 2.2 thou/uL (1.20-3.40); #Monocytes 0.8 thou/uL (0.11-0.59); #Neutrophils 10.4 thou/uL (1.40-6.50); %Basophils 0.7 % (0.0-1.0); %Eosinophils 0.9 % (0.0-10.0); %Lymphocytes 16.4 % (21.0-51.0); %Monocytes 5.9 % (0.0-10.0); %Neutrophils 76.1 % (42.0-75.0); Hemoglobin 14.7 g/dL (14.0-18.0); Mean Corpuscular HGB CONC 33.9 g/dL (32.0-36.0); Mean Corpuscular Hemoglobin 34.4 pg (27.0-31.0); Mean Platelet Volume 7.9 fL (7.4-10.4); Platelet Count 217 thou/uL (130-400); Red Blood Cell (RBC) Count 4.27 mill/uL (4.70-6.10); White Blood Cell (WBC) Count 13.6 thou/uL (4.8-10.8)
[2020-08-26 09:24] LABS: ALT (SGPT) 13 U/L (8-55); AST (SGOT) 21 U/L (5-34); Albumin 4.6 g/dL (3.5-5.0); Alkaline Phosphatase 111 U/L (40-110); Anion Gap 14 mmol/L (10-20); BUN (Urea Nitrogen) 9 mg/dL (8.4-25.7); Bilirubin, Total 1.4 mg/dL (0.2-1.2); Calc. Creatinine Clearance 0 mL/min (70-130); Carbon Dioxide 25 mmol/L (22-29); Chloride 106 mmol/L (98-107); Estimated GFR-MDRD 76; Globulin 3.4 g/dL (2.4-3.5); Glucose 113 mg/dL (70-105); Sodium 141 mmol/L (136-145)
== END 2020-08-26 10:15 | disposition home or self-care (01) ==
LOC: ERS 08:17
DX: K64.8 Other hemorrhoids (principal); I11.0 Hypertensive heart disease with heart failure; I50.9 Heart failure, unspecified; J45.909 Unspecified asthma, uncomplicated; F17.210 Nicotine dependence, cigarettes, uncomplicated; Z79.899 Other long term (current) drug therapy
CPT/HCPCS: 36415; 80053; 85025; 86850; 86900; 86901; 99283

== ENCOUNTER 2020-08-28 09:51 | Outpatient (CLI) | payer OTHER ==
--- NOTE | 2020-08-28 11:09 | RAD ---
Left knee 4 views: HISTORY: Knee pain. FINDINGS: Medial and lateral joint spaces appear preserved. No evidence of fracture. No significant joint eff usion. Patella appears unremarkable. IMPRESSION: No acute finding. POS: AH
== END 2020-08-28 09:52 | disposition home or self-care (01) ==
LOC: BICRAD 09:51
PROVIDERS: ATTEND Physician Assistant
DX: M25.562 Pain in left knee (principal); K62.5 Hemorrhage of anus and rectum
CPT/HCPCS: 36415; 85025

== ENCOUNTER 2020-12-27 15:26 | Emergency (ER) | payer OTHER ==
[~2020-12-27 15:26] MED LIST changes: -CEFAZOLIN 1 GM VIAL ONE; -Carvedilol 3.125 MG TAB ONE; -Fentanyl 100 MCG/2 ML VIAL ONE; -HYDROcodone/Acetaminophen 5/325 mg Tablet ONE; -Iopamidol 370 76% 50 ML VIAL FS ONE; +Iopamidol-370 76% 500 ML 1 ML ONE; -Labetalol HCl 100 MG/20 ML VIAL ONE; -Lisinopril 2.5 MG TAB ONE; -Midazolam HCl 2 mg/2 ml Vial ONE; -Morphine 4 MG/ML VIAL ONE; -PHENYLEPHRINE-NS 100 MCG/ML 10 ML SYRINGE ONE; -Propofol 500 MG/50 ML VIAL ONE
[2020-12-27] MEDS ORDERED: Morphine 4 MG/ML VIAL ONE (16:02)
[2020-12-27] MEDS ORDERED: Ondansetron PF 4 MG/2 ML Vial ONE (16:02)
[2020-12-27 16:09] LABS: #Basophils 0.1 thou/uL (0.0-0.2); #Eosinphils 0.3 thou/uL (0.0-0.7); #Lymphocytes 3.6 thou/uL (1.20-3.40); #Monocytes 0.7 thou/uL (0.11-0.59); #Neutrophils 8.8 thou/uL (1.40-6.50); %Basophils 0.7 % (0.0-1.0); %Eosinophils 1.9 % (0.0-10.0); %Lymphocytes 26.8 % (21.0-51.0); %Monocytes 5.2 % (0.0-10.0); %Neutrophils 65.4 % (42.0-75.0); Hemoglobin 15.1 g/dL (14.0-18.0); Mean Corpuscular HGB CONC 33.5 g/dL (32.0-36.0); Mean Corpuscular Hemoglobin 34.4 pg (27.0-31.0); Mean Platelet Volume 8.3 fL (7.4-10.4); Platelet Count 220 thou/uL (130-400); RBC Distribution Width 11.5 % (11.5-14.5); Red Blood Cell (RBC) Count 4.39 mill/uL (4.70-6.10); White Blood Cell (WBC) Count 13.4 thou/uL (4.8-10.8)
[2020-12-27 16:32] LABS: Bacteria/HPF None Seen HPF (None Seen); Bilirubin Negative (Negative); Blood, Urine 1+ (Negative); Clarity Clear (Clear); Glucose, Urine (Dipstick) Normal (Negative); Ketone, Urine Negative (Negative); Leukocyte Negative Leu/uL (Negative); Nitrite Negative (Negative); Protein, Urine (Dipstick) Negative (Neg-Trace); RBC/HPF 0-3 HPF (0-3); Specific Gravity, Urine 1.009 (1.002-1.036); Squamous Epithelial 0-3 HPF (0-3); Urobilinogen Normal mg/dL (Less than 2); WBC/HPF 0-3 HPF (0-3)
[2020-12-27 16:33] LABS: ALT (SGPT) 15 U/L (8-55); AST (SGOT) 22 U/L (5-34); Albumin 4.6 g/dL (3.5-5.0); Alkaline Phosphatase 108 U/L (40-110); Anion Gap 16 mmol/L (10-20); BUN (Urea Nitrogen) 6 mg/dL (8.4-25.7); Bilirubin, Total 1.6 mg/dL (0.2-1.2); Calc. Creatinine Clearance 0 mL/min (70-130); Calcium 9.7 mg/dL (7.8-10.44); Carbon Dioxide 24 mmol/L (22-29); Chloride 104 mmol/L (98-107); Globulin 3.7 g/dL (2.4-3.5); Glucose 124 mg/dL (70-105); Lipase 14 U/L (8-78); Protein, Total 8.3 g/dL (6.0-8.3); Sodium 140 mmol/L (136-145)
[2020-12-27 16:54] LABS: CKMB 0.8 ng/mL (0-6.6)
[2020-12-27 19:28] LABS: Troponin I 0.043 ng/mL (< 0.028)
== END 2020-12-27 19:48 | disposition home or self-care (01) ==
LOC: ERS 15:26
DX: R10.32 Left lower quadrant pain (principal); R19.7 Diarrhea, unspecified; R77.8 Other specified abnormalities of plasma proteins; I50.9 Heart failure, unspecified; R11.0 Nausea; I11.0 Hypertensive heart disease with heart failure; J45.909 Unspecified asthma, uncomplicated; F17.210 Nicotine dependence, cigarettes, uncomplicated; Z79.899 Other long term (current) drug therapy
CPT/HCPCS: 36415; 71045; 71046; 74177; 80053; 81003; 81015; 82553; 83690; 84484; 85025; 93005; 96374; 96375; J2270; J2405; Q9967

== ENCOUNTER 2021-01-22 11:29 | Emergency (ER) | payer OTHER ==
[2021-01-22] MEDS ORDERED: Iopamidol-370 76% 500 ML 1 ML ONE (12:09)
[2021-01-22] MEDS ORDERED: Ondansetron PF 4 MG/2 ML Vial ONE (13:58)
[2021-01-22] MEDS ORDERED: Dexamethasone 4 mg/ml Vial ONE (13:58)
[2021-01-22] MEDS ORDERED: Morphine 4 MG/ML VIAL ONE (13:58)
[2021-01-22] MEDS ORDERED: Clindamycin/D5W 900 mg/50 ml Premix Bag ONE (14:07)
[2021-01-22 14:11] LABS: #Eosinphils 0.1 thou/uL (0.0-0.7); #Lymphocytes 2.5 thou/uL (1.20-3.40); #Monocytes 0.8 thou/uL (0.11-0.59); #Neutrophils 9.1 thou/uL (1.40-6.50); %Basophils 0.3 % (0.0-1.0); %Eosinophils 0.8 % (0.0-10.0); %Lymphocytes 20.1 % (21.0-51.0); %Monocytes 6.1 % (0.0-10.0); %Neutrophils 72.7 % (42.0-75.0); Hemoglobin 13.5 g/dL (14.0-18.0); Mean Corpuscular HGB CONC 33.7 g/dL (32.0-36.0); Mean Corpuscular Hemoglobin 34.7 pg (27.0-31.0); Mean Platelet Volume 8.4 fL (7.4-10.4); Platelet Count 207 thou/uL (130-400); RBC Distribution Width 11.1 % (11.5-14.5); Red Blood Cell (RBC) Count 3.89 mill/uL (4.70-6.10); White Blood Cell (WBC) Count 12.6 thou/uL (4.8-10.8)
[2021-01-22 14:52] LABS: ALT (SGPT) 13 U/L (8-55); AST (SGOT) 29 U/L (5-34); Alkaline Phosphatase 80 U/L (40-110); Anion Gap 16 mmol/L (10-20); BUN (Urea Nitrogen) 8 mg/dL (8.4-25.7); Bilirubin, Total 0.7 mg/dL (0.2-1.2); Calc. Creatinine Clearance 0 mL/min (70-130); Calcium 9.1 mg/dL (7.8-10.44); Carbon Dioxide 21 mmol/L (22-29); Chloride 107 mmol/L (98-107); Glucose 105 mg/dL (70-105); Sodium 139 mmol/L (136-145)
== END 2021-01-22 15:56 | disposition home or self-care (01) ==
LOC: ERS 11:29
DX: K04.7 Periapical abscess without sinus (principal); I11.0 Hypertensive heart disease with heart failure; I50.9 Heart failure, unspecified; J45.909 Unspecified asthma, uncomplicated; F17.210 Nicotine dependence, cigarettes, uncomplicated; Z79.899 Other long term (current) drug therapy
CPT/HCPCS: 70487; 80053; 85025; 96365; 96375; J1100; J2270; J2405; J3490; Q9967

== ENCOUNTER 2021-02-09 23:08 | Observation (INO) | payer OTHER ==
[2021-02-09] MEDS ORDERED: Nitroglycerin 0.4 MG TAB 1 EACH ONE (23:49)
[2021-02-09] MEDS ORDERED: Aspirin 325 MG TAB ONE (23:49)
[2021-02-09] MEDS ORDERED: Benzonatate 100 MG CAP ONE (23:49)
[2021-02-09] MEDS ORDERED: Furosemide 40 MG/4 ML VIAL ONE (23:49)
[2021-02-09 23:57] LABS: Mean Corpuscular HGB CONC 33.6 g/dL (32.0-36.0); Mean Corpuscular Hemoglobin 35.2 pg (27.0-31.0); Mean Platelet Volume 8.4 fL (7.4-10.4); Platelet Count 216 thou/uL (130-400); RBC Distribution Width 11.2 % (11.5-14.5); Red Blood Cell (RBC) Count 3.96 mill/uL (4.70-6.10)
[2021-02-10 00:10] LABS: ALT (SGPT) 25 U/L (8-55); AST (SGOT) 41 U/L (5-34); Albumin 4.2 g/dL (3.5-5.0); Alkaline Phosphatase 103 U/L (40-110); Anion Gap 12 mmol/L (10-20); BUN (Urea Nitrogen) 5 mg/dL (8.4-25.7); Bilirubin, Total 1.6 mg/dL (0.2-1.2); Calc. Creatinine Clearance 0 mL/min (70-130); Calcium 9.3 mg/dL (7.8-10.44); Carbon Dioxide 27 mmol/L (22-29); Chloride 108 mmol/L (98-107); Globulin 3.4 g/dL (2.4-3.5); Glucose 96 mg/dL (70-105); Protein, Total 7.6 g/dL (6.0-8.3); Sodium 143 mmol/L (136-145)
[2021-02-10 00:16] LABS: #Basophils 0.2 thou/uL (0.0-0.2); #Eosinphils 0.3 thou/uL (0.0-0.7); #Lymphocytes 4.6 thou/uL (1.20-3.40); #Monocytes 0.6 thou/uL (0.11-0.59); #Neutrophils 4.3 thou/uL (1.40-6.50); %Basophils 1.6 % (0.0-1.0); %Lymphocytes 45.9 % (21.0-51.0); %Monocytes 6.3 % (0.0-10.0); %Neutrophils 43.2 % (42.0-75.0); RBC Morphology Normal
[2021-02-10 00:33] LABS: CKMB 1.6 ng/mL (0-6.6)
[2021-02-10 01:28] LABS: SARS-CoV-2 NAA Rapid Test Not Detected (NotDetected)
[2021-02-10 02:36] VITALS: BMI 17.9
[2021-02-10 03:11] LABS: Troponin I 0.088 ng/mL (< 0.028)
[2021-02-10 05:00] LABS: #Basophils 0.1 thou/uL (0.0-0.2); #Eosinphils 0.3 thou/uL (0.0-0.7); #Lymphocytes 3.3 thou/uL (1.20-3.40); #Monocytes 0.6 thou/uL (0.11-0.59); #Neutrophils 5.1 thou/uL (1.40-6.50); %Basophils 0.7 % (0.0-1.0); %Lymphocytes 34.8 % (21.0-51.0); %Monocytes 6.7 % (0.0-10.0); %Neutrophils 54.7 % (42.0-75.0); Hemoglobin 13.7 g/dL (14.0-18.0); Mean Corpuscular Hemoglobin 34.2 pg (27.0-31.0); Mean Platelet Volume 8.9 fL (7.4-10.4); Platelet Count 214 thou/uL (130-400); RBC Distribution Width 11.4 % (11.5-14.5); White Blood Cell (WBC) Count 9.3 thou/uL (4.8-10.8)
[2021-02-10 05:02] LABS: Anion Gap 16 mmol/L (10-20); BUN (Urea Nitrogen) 7 mg/dL (8.4-25.7); Calc. Creatinine Clearance 62 mL/min (70-130); Calcium 9.5 mg/dL (7.8-10.44); Carbon Dioxide 25 mmol/L (22-29); Chloride 103 mmol/L (98-107); Glucose 256 mg/dL (70-105); Potassium 3.6 mmol/L (3.5-5.1); Sodium 140 mmol/L (136-145)
[2021-02-10 06:22] LABS: Troponin I 0.091 ng/mL (< 0.028)
[2021-02-10] MEDS ORDERED: Carvedilol 6.25 MG TAB PO SCH (08:00)
[2021-02-10] MEDS ORDERED: Enoxaparin Sodium 40 MG/0.4 ML SYRINGE SC SCH (09:00)
[2021-02-10] MEDS ORDERED: Furosemide 40 MG/4 ML VIAL SLOW IVP SCH (09:00)
[2021-02-10] MEDS ORDERED: Aspirin 81 mg Enteric Coated Tablet PO SCH (09:00)
[2021-02-10] MEDS ORDERED: Lisinopril 2.5 MG TAB PO SCH (09:00)
[2021-02-10 11:15] VITALS: TEMP 97.9
[2021-02-10 13:17] VITALS: BP 149/80
== END 2021-02-10 14:12 | disposition home or self-care (01) ==
LOC: ERS 23:08 → INTOOBSV 02-10 01:41 → 2NO 02-10 01:41
PROVIDERS: ADMIT Student in an Organized Health Care Education/Training Program; ATTEND Internal Medicine
DX: I11.0 Hypertensive heart disease with heart failure (principal); I50.21 Acute systolic (congestive) heart failure; J45.909 Unspecified asthma, uncomplicated; F17.210 Nicotine dependence, cigarettes, uncomplicated; I08.3 Combined rheumatic disorders of mitral, aortic and tricuspid valves; R77.8 Other specified abnormalities of plasma proteins; Z79.899 Other long term (current) drug therapy; Z95.0 Presence of cardiac pacemaker; Z20.822 Contact with and (suspected) exposure to COVID-19
CPT/HCPCS: 36415; 71045; 80048; 80053; 82553; 83880; 84484; 85025; 93005; 93306; 93798; 94640; 96374; J1650; J1940; J7620; U0002

== ENCOUNTER 2021-03-05 13:43 | Emergency (ER) | payer OTHER, MEDICARE ==
[2021-03-05 14:12] LABS: #Basophils 0.1 thou/uL (0.0-0.2); #Eosinphils 0.4 thou/uL (0.0-0.7); #Lymphocytes 2.6 thou/uL (1.20-3.40); #Monocytes 0.8 thou/uL (0.11-0.59); #Neutrophils 5.1 thou/uL (1.40-6.50); %Basophils 0.7 % (0.0-1.0); %Eosinophils 4.3 % (0.0-10.0); %Lymphocytes 29.3 % (21.0-51.0); %Monocytes 8.6 % (0.0-10.0); %Neutrophils 57.1 % (42.0-75.0); Hemoglobin 14.5 g/dL (14.0-18.0); Mean Corpuscular HGB CONC 33.5 g/dL (32.0-36.0); Mean Corpuscular Hemoglobin 34.1 pg (27.0-31.0); Platelet Count 175 thou/uL (130-400); RBC Distribution Width 11.1 % (11.5-14.5); Red Blood Cell (RBC) Count 4.26 mill/uL (4.70-6.10); White Blood Cell (WBC) Count 8.9 thou/uL (4.8-10.8)
[2021-03-05 14:37] LABS: ALT (SGPT) 12 U/L (8-55); AST (SGOT) 17 U/L (5-34); Albumin 4.1 g/dL (3.5-5.0); Alkaline Phosphatase 88 U/L (40-110); Anion Gap 12 mmol/L (10-20); BUN (Urea Nitrogen) 7 mg/dL (8.4-25.7); Bilirubin, Total 1.5 mg/dL (0.2-1.2); Calc. Creatinine Clearance 0 mL/min (70-130); Calcium 9.2 mg/dL (7.8-10.44); Carbon Dioxide 23 mmol/L (22-29); Chloride 106 mmol/L (98-107); Globulin 3.4 g/dL (2.4-3.5); Glucose 73 mg/dL (70-105); Potassium 4.3 mmol/L (3.5-5.1); Protein, Total 7.5 g/dL (6.0-8.3); Sodium 137 mmol/L (136-145)
[2021-03-05 14:57] LABS: CKMB 1.5 ng/mL (0-6.6)
[2021-03-05] MEDS ORDERED: methylPREDNISolone Sod Succ/PF 125 MG/2 ML VIAL ONE (16:38)
[2021-03-05] MEDS ORDERED: Albuterol Sulfate 2.5 mg/3 ml Neb ONE (16:38)
== END 2021-03-05 17:47 | disposition home or self-care (01) ==
LOC: ERS 13:43
DX: J44.1 Chronic obstructive pulmonary disease with (acute) exacerbation (principal); I50.9 Heart failure, unspecified; I11.0 Hypertensive heart disease with heart failure; J45.909 Unspecified asthma, uncomplicated; Z79.899 Other long term (current) drug therapy
CPT/HCPCS: 36415; 71046; 80053; 82553; 83880; 84484; 85025; 93005; 94644; 96374; J2930; J7611; J7620

== ENCOUNTER 2021-04-11 19:56 | Emergency (ER) | payer MEDICARE, OTHER ==
[2021-04-11 20:19] LABS: #Basophils 0.1 thou/uL (0.0-0.2); #Eosinphils 0.3 thou/uL (0.0-0.7); #Monocytes 0.6 thou/uL (0.11-0.59); #Neutrophils 4.9 thou/uL (1.40-6.50); %Basophils 1.2 % (0.0-1.0); %Eosinophils 2.7 % (0.0-10.0); %Monocytes 5.3 % (0.0-10.0); %Neutrophils 44.8 % (42.0-75.0); Hemoglobin 14.4 g/dL (14.0-18.0); Mean Corpuscular HGB CONC 33.4 g/dL (32.0-36.0); Mean Corpuscular Hemoglobin 33.8 pg (27.0-31.0); Mean Platelet Volume 8.3 fL (7.4-10.4); Platelet Count 200 thou/uL (130-400); RBC Distribution Width 11.5 % (11.5-14.5); Red Blood Cell (RBC) Count 4.25 mill/uL (4.70-6.10); White Blood Cell (WBC) Count 10.9 thou/uL (4.8-10.8)
[2021-04-11 20:33] LABS: ALT (SGPT) 20 U/L (8-55); AST (SGOT) 22 U/L (5-34); Albumin 4.4 g/dL (3.5-5.0); Alkaline Phosphatase 87 U/L (40-110); Anion Gap 18 mmol/L (10-20); BUN (Urea Nitrogen) 14 mg/dL (8.4-25.7); Bilirubin, Total 2.2 mg/dL (0.2-1.2); Calc. Creatinine Clearance 0 mL/min (70-130); Calcium 9.9 mg/dL (7.8-10.44); Carbon Dioxide 21 mmol/L (22-29); Chloride 106 mmol/L (98-107); Globulin 3.2 g/dL (2.4-3.5); Glucose 107 mg/dL (70-105); Potassium 3.4 mmol/L (3.5-5.1); Protein, Total 7.6 g/dL (6.0-8.3); Sodium 142 mmol/L (136-145)
[2021-04-11] MEDS ORDERED: methylPREDNISolone Sod Succ/PF 125 MG/2 ML VIAL ONE (20:42)
[2021-04-11 20:55] LABS: CKMB 1.1 ng/mL (0-6.6)
[2021-04-12 00:50] LABS: CKMB 0.9 ng/mL (0-6.6)
== END 2021-04-12 00:51 | disposition home or self-care (01) ==
LOC: ERS 19:56
DX: J44.1 Chronic obstructive pulmonary disease with (acute) exacerbation (principal); I11.0 Hypertensive heart disease with heart failure; I50.9 Heart failure, unspecified; Z87.891 Personal history of nicotine dependence; Z79.899 Other long term (current) drug therapy
CPT/HCPCS: 71045; 80053; 82553; 83880; 84484; 85025; 93005; 94640; 96374; J2930; J7620

== ENCOUNTER 2021-05-03 01:27 | Emergency (ER) | payer OTHER ==
[2021-05-03] MEDS ORDERED: predniSONE 20 MG TAB ONE (01:57)
[2021-05-03] MEDS ORDERED: Magnesium 2 GM/50 ML BAG (IN WATER) ONE (01:57)
[2021-05-03] MEDS ORDERED: Albuterol 200 PUFF (6.7GM INHALER) ONE (02:12)
[2021-05-03 02:13] LABS: #Basophils 0.1 thou/uL (0.0-0.2); #Eosinphils 0.3 thou/uL (0.0-0.7); #Lymphocytes 4.2 thou/uL (1.20-3.40); #Monocytes 0.5 thou/uL (0.11-0.59); #Neutrophils 3.8 thou/uL (1.40-6.50); %Basophils 1.1 % (0.0-1.0); %Eosinophils 3.2 % (0.0-10.0); %Monocytes 6.1 % (0.0-10.0); %Neutrophils 42.7 % (42.0-75.0); Hemoglobin 15.4 g/dL (14.0-18.0); Mean Corpuscular HGB CONC 34.5 g/dL (32.0-36.0); Mean Corpuscular Hemoglobin 34.8 pg (27.0-31.0); Mean Platelet Volume 8.1 fL (7.4-10.4); Platelet Count 219 thou/uL (130-400); RBC Distribution Width 11.6 % (11.5-14.5); Red Blood Cell (RBC) Count 4.43 mill/uL (4.70-6.10); White Blood Cell (WBC) Count 8.9 thou/uL (4.8-10.8)
[2021-05-03] MEDS ORDERED: Doxycycline 100 MG CAP PO SCH (02:15)
[2021-05-03 02:22] LABS: ALT (SGPT) 21 U/L (8-55); AST (SGOT) 30 U/L (5-34); Albumin 4.7 g/dL (3.5-5.0); Alkaline Phosphatase 96 U/L (40-110); Anion Gap 15 mmol/L (10-20); BUN (Urea Nitrogen) 12 mg/dL (8.4-25.7); Calc. Creatinine Clearance 0 mL/min (70-130); Calcium 9.8 mg/dL (7.8-10.44); Carbon Dioxide 26 mmol/L (22-29); Chloride 102 mmol/L (98-107); Globulin 3.3 g/dL (2.4-3.5); Glucose 70 mg/dL (70-105); Potassium 4.4 mmol/L (3.5-5.1); Sodium 139 mmol/L (136-145)
== END 2021-05-03 05:44 | disposition home or self-care (01) ==
LOC: ERS 01:27
DX: J44.1 Chronic obstructive pulmonary disease with (acute) exacerbation (principal); I11.0 Hypertensive heart disease with heart failure; I50.9 Heart failure, unspecified; Z87.891 Personal history of nicotine dependence
CPT/HCPCS: 71045; 80053; 83880; 84484; 85025; 93005; 96365; J3475; J7512

== ENCOUNTER 2021-07-03 12:50 | Outpatient (CLI) | payer MEDICARE, OTHER | END 2021-07-03 12:51 | disposition home or self-care (01) | LOC: BICRAD 12:50 | PROVIDERS: ATTEND Internal Medicine Critical Care Medicine | DX: R06.00 Dyspnea, unspecified (principal) | CPT/HCPCS: 71046 ==

== ENCOUNTER 2021-10-24 21:29 | Emergency (ER) | payer MEDICARE, OTHER ==
[2021-10-24] MEDS ORDERED: Famotidine 20 MG TAB ONE (23:01)
[2021-10-24] MEDS ORDERED: predniSONE 20 MG TAB ONE (23:01)
[2021-10-24] MEDS ORDERED: hydrOXYzine 25 MG TAB ONE ×2 (23:19)
== END 2021-10-24 23:30 | disposition home or self-care (01) ==
LOC: ERS 21:29
DX: L50.0 Allergic urticaria (principal); I11.0 Hypertensive heart disease with heart failure; I50.9 Heart failure, unspecified; J45.909 Unspecified asthma, uncomplicated
CPT/HCPCS: 99282; J7512

== ENCOUNTER 2021-11-17 05:40 | Emergency (ER) | payer MEDICARE, OTHER ==
[2021-11-17] MEDS ORDERED: predniSONE 20 MG TAB ONE (06:20)
== END 2021-11-17 06:30 | disposition home or self-care (01) ==
LOC: ERS 05:40
DX: T78.40XA Allergy, unspecified, initial encounter (principal); I11.0 Hypertensive heart disease with heart failure; I50.9 Heart failure, unspecified
CPT/HCPCS: 99281; J7512

== ENCOUNTER 2022-02-12 22:57 | Emergency (ER) | payer MEDICARE, MEDICAID | END 2022-02-13 02:07 | disposition home or self-care (01) | LOC: ERS 22:57 | DX: L50.9 Urticaria, unspecified (principal); I11.0 Hypertensive heart disease with heart failure; I50.9 Heart failure, unspecified; J45.909 Unspecified asthma, uncomplicated | CPT/HCPCS: 99282; J7512 ==

== ENCOUNTER 2022-04-30 19:36 | Observation (INO) | payer MEDICARE, MEDICAID ==
[2022-04-30 20:08] LABS: #Basophils 0.1 thou/uL (0.0-0.2); #Eosinphils 0.2 thou/uL (0.0-0.7); #Lymphocytes 3.5 thou/uL (1.20-3.40); #Monocytes 0.6 thou/uL (0.11-0.59); #Neutrophils 3.7 thou/uL (1.40-6.50); %Basophils 1.1 % (0.0-1.0); %Monocytes 6.9 % (0.0-10.0); %Neutrophils 45.9 % (42.0-75.0); Hemoglobin 14.8 g/dL (14.0-18.0); Mean Corpuscular HGB CONC 32.3 g/dL (32.0-36.0); Mean Corpuscular Hemoglobin 34.1 pg (27.0-31.0); Mean Platelet Volume 7.9 fL (7.4-10.4); Platelet Count 160 thou/uL (130-400); RBC Distribution Width 11.9 % (11.5-14.5); Red Blood Cell (RBC) Count 4.34 mill/uL (4.70-6.10)
[2022-04-30 20:20] LABS: MDiff Complete? YES; Macrocytosis SLIGHT = 6-15 cells (100X) (0-5/hpf); Platelet Morphology Comment Appears Adequate; Polychromasia SLIGHT = 2-3 cells (100X) (0-2/hpf)
[2022-04-30 20:29] LABS: ALT (SGPT) 7 U/L (8-55); AST (SGOT) 13 U/L (5-34); Acetaminophen Less than 10.0 mcg/mL (10.0-30.0); Albumin 3.6 g/dL (3.5-5.0); Alcohol 37 mg/dL (Less than 10); Alkaline Phosphatase 78 U/L (40-110); Anion Gap 16 mmol/L (10-20); BUN (Urea Nitrogen) 14 mg/dL (8.4-25.7); Bilirubin, Total 1.8 mg/dL (0.2-1.2); Calc. Creatinine Clearance 0 mL/min (70-130); Calcium 8.6 mg/dL (7.8-10.44); Carbon Dioxide 19 mmol/L (22-29); Chloride 106 mmol/L (98-107); Globulin 2.7 g/dL (2.4-3.5); Glucose 125 mg/dL (70-105); Potassium 3.8 mmol/L (3.5-5.1); Protein, Total 6.3 g/dL (6.0-8.3); Salicylate Less than 8.0 mg/dL (15.0-30.0); Sodium 137 mmol/L (136-145)
[2022-04-30 20:48] LABS: Actual Bicarbonate (HCO3v) 20 mEq/L (22-28); Analyzer IN Cardio ER; Base Excess -5.7 mEq/L (-2.0 to +3.0); Chloride (VBG) 106 mmol/L (98-106); Potassium (VBG) 3.84 mmol/L (3.70-5.30); Sodium 136.9 mmol/L (133-146); pH (venous) 7.31 (7.32-7.43)
[2022-04-30 20:51] LABS: CKMB 0.6 ng/mL (0-6.6)
[2022-04-30 20:58] LABS: INR-International Normal Ratio 1.2; PTT 26.8 sec (22.9-36.1); Prothrombin Time 15.4 sec (12.0-14.7)
[2022-04-30] MEDS ORDERED: Aspirin 325 MG TAB ONE (21:28)
[2022-04-30 22:21] LABS: Amphetamine Not Detected (NotDetected); Barbiturates Screen Not Detected (NotDetected); Benzodiazepine Screen Not Detected (NotDetected); Cocaine Metabolite Screen Not Detected (NotDetected); Methadone Not Detected (NotDetected); Methamphetamine Not Detected (NotDetected); Opiate Screen Not Detected (NotDetected); Oxycodone Screen Not Detected (NotDetected); Phencyclidine (PCP) Not Detected (NotDetected); THC/Cannabinoid Screen Detected (NotDetected); Tricyclic Screen Not Detected (NotDetected)
[2022-04-30] MEDS ORDERED: Acetaminophen 325 MG TAB PO PRN (22:31)
[2022-04-30] MEDS ORDERED: Ondansetron PF 4 MG/2 ML Vial IVP PRN (22:31)
[2022-04-30] MEDS ORDERED: Labetalol HCl 100 MG/20 ML VIAL SLOW IVP PRN (22:42)
[2022-04-30] MEDS ORDERED: Lactated Ringer's 1,000 ML IV SCH (23:00)
[2022-04-30] MEDS ORDERED: Multivitamins, Adult 10 ML, Folic Acid 1 MG, Thiamine HCl 100 MG in Dextrose 5 %-0.45 %... IV SCH (23:30)
[2022-04-30] MEDS: Sodium Chloride 0.9% 1,000 ML IV SCH (23:46)
[2022-05-01 00:09] VITALS: BMI 18.5
[2022-05-01 04:40] LABS: #Basophils 0.1 thou/uL (0.0-0.2); #Eosinphils 0.1 thou/uL (0.0-0.7); #Lymphocytes 3.7 thou/uL (1.20-3.40); #Monocytes 0.6 thou/uL (0.11-0.59); #Neutrophils 4.4 thou/uL (1.40-6.50); %Basophils 0.6 % (0.0-1.0); %Eosinophils 1.7 % (0.0-10.0); %Lymphocytes 41.5 % (21.0-51.0); %Monocytes 6.9 % (0.0-10.0); %Neutrophils 49.3 % (42.0-75.0); Hemoglobin 14.5 g/dL (14.0-18.0); Mean Corpuscular Hemoglobin 34.9 pg (27.0-31.0); Mean Platelet Volume 7.9 fL (7.4-10.4); Platelet Count 156 thou/uL (130-400); RBC Distribution Width 11.7 % (11.5-14.5); Red Blood Cell (RBC) Count 4.15 mill/uL (4.70-6.10); White Blood Cell (WBC) Count 8.9 thou/uL (4.8-10.8)
[2022-05-01 05:11] LABS: Hemoglobin A1c 5.1 % (4.0-6.0)
[2022-05-01 05:16] LABS: Anion Gap 11 mmol/L (10-20); BUN (Urea Nitrogen) 11 mg/dL (8.4-25.7); Calc. Creatinine Clearance 68 mL/min (70-130); Carbon Dioxide 22 mmol/L (22-29); Cardiac Risk 2.6 (Less than 4.5); Chloride 108 mmol/L (98-107); Cholesterol 145 mg/dl (< 200 Desired); Glucose 119 mg/dL (70-105); HDL Cholesterol 56 mg/dL (>60 Neg Risk); LDL Cholesterol, Calculated 78 mg/dL; Magnesium 1.9 mg/dL (1.6-2.6); Phosphorus 3.6 mg/dL (2.3-4.7); Potassium 4.3 mmol/L (3.5-5.1); Sodium 137 mmol/L (136-145); Triglycerides 53 mg/dL (Less than 150)
[2022-05-01] MEDS ORDERED: Aspirin 325 mg Enteric Coated Tablet PO SCH (09:00)
[2022-05-01] MEDS ORDERED: Heparin 5,000 UNITS/ML VIAL SC SCH (09:00)
[2022-05-01] MEDS ORDERED: Famotidine 20 MG TAB PO SCH (09:00)
[2022-05-01] MEDS: Sodium Chloride 0.9% 1,000 ML IV SCH (11:32)
[2022-05-01 16:20] VITALS: BP 122/67; TEMP 98.3
[2022-05-01] MEDS ORDERED: Atorvastatin Calcium 40 MG TAB PO SCH (21:00)
== END 2022-05-01 17:35 | disposition home or self-care (01) ==
LOC: ERS 19:36 → NEURO 21:23
PROVIDERS: ADMIT Internal Medicine; ATTEND Internal Medicine
DX: I63.311 Cerebral infarction due to thrombosis of right middle cerebral artery (principal); G81.94 Hemiplegia, unspecified affecting left nondominant side; R47.81 Slurred speech; N17.9 Acute kidney failure, unspecified; R77.8 Other specified abnormalities of plasma proteins; F10.920 Alcohol use, unspecified with intoxication, uncomplicated; R17 Unspecified jaundice; I11.0 Hypertensive heart disease with heart failure; I50.22 Chronic systolic (congestive) heart failure; J44.9 Chronic obstructive pulmonary disease, unspecified; I42.9 Cardiomyopathy, unspecified; K21.9 Gastro-esophageal reflux disease without esophagitis; E87.2 Acidosis; F14.11 Cocaine abuse, in remission; Z79.01 Long term (current) use of anticoagulants; Z79.82 Long term (current) use of aspirin; Z79.899 Other long term (current) drug therapy; Z88.5 Allergy status to narcotic agent; Z95.810 Presence of automatic (implantable) cardiac defibrillator; Z20.822 Contact with and (suspected) exposure to COVID-19; Y90.1 Blood alcohol level of 20-39 mg/100 ml
CPT/HCPCS: 70450; 70496; 70498; 71045; 80048; 80053; 80061; 80306; 80307; 82553; 82805; 82962; 83036; 83735; 84100; 84484; 85025 ×2; 85610; 85730; 93005; 95816; 95819; 95957; 96360; 97116; 97139 ×3; 97535; 99285; U0003; U0005; 36415; 36416; G0378; J1644; J3411; J7042; J7050; J7120

== ENCOUNTER 2022-06-04 17:44 | Observation (INO) | payer OTHER, MEDICAID ==
[2022-06-04 18:34] LABS: #Basophils 0.1 thou/uL (0.0-0.2); #Eosinphils 0.1 thou/uL (0.0-0.7); #Lymphocytes 3.5 thou/uL (1.20-3.40); #Monocytes 0.5 thou/uL (0.11-0.59); #Neutrophils 4.1 thou/uL (1.40-6.50); %Basophils 0.9 % (0.0-1.0); %Eosinophils 1.8 % (0.0-10.0); %Lymphocytes 42.2 % (21.0-51.0); %Neutrophils 49.1 % (42.0-75.0); Hemoglobin 13.5 g/dL (14.0-18.0); Mean Corpuscular HGB CONC 33.3 g/dL (32.0-36.0); Mean Corpuscular Hemoglobin 34.8 pg (27.0-31.0); Mean Platelet Volume 8.4 fL (7.4-10.4); Platelet Count 163 thou/uL (130-400); RBC Distribution Width 11.1 % (11.5-14.5); Red Blood Cell (RBC) Count 3.89 mill/uL (4.70-6.10); White Blood Cell (WBC) Count 8.3 thou/uL (4.8-10.8)
[2022-06-04 18:57] LABS: ALT (SGPT) 11 U/L (8-55); AST (SGOT) 18 U/L (5-34); Albumin 3.9 g/dL (3.5-5.0); Alkaline Phosphatase 82 U/L (40-110); Anion Gap 10 mmol/L (10-20); BUN (Urea Nitrogen) 8 mg/dL (8.4-25.7); Bilirubin, Total 1.4 mg/dL (0.2-1.2); Calc. Creatinine Clearance 0 mL/min (70-130); Calcium 9.2 mg/dL (7.8-10.44); Carbon Dioxide 23 mmol/L (22-29); Chloride 111 mmol/L (98-107); Estimated GFR 103; Globulin 2.9 g/dL (2.4-3.5); Glucose 67 mg/dL (70-105); Potassium 3.4 mmol/L (3.5-5.1); Protein, Total 6.8 g/dL (6.0-8.3); Sodium 141 mmol/L (136-145)
[2022-06-04 19:17] LABS: CKMB 0.7 ng/mL (0-6.6)
[2022-06-04] MEDS ORDERED: Nitroglycerin 0.4 MG TAB (25 Tab Bottle) SL PRN (21:05)
[2022-06-04] MEDS ORDERED: Acetaminophen 325 MG TAB PO PRN (21:05)
[2022-06-04] MEDS ORDERED: Bisacodyl 5 MG TAB PO PRN (21:05)
[2022-06-04] MEDS ORDERED: Ondansetron ODT 4 MG TAB PO PRN ×2 (21:05→21:31)
[2022-06-04] MEDS ORDERED: Senokot S 8.6-50 MG TAB PO PRN (21:05)
[2022-06-04] MEDS ORDERED: Ondansetron PF 4 MG/2 ML Vial IVP PRN (21:05)
[2022-06-04] MEDS ORDERED: Potassium Chloride 20 MEQ TAB PO SCH ×2 (21:30→22:00)
[2022-06-04] MEDS ORDERED: Lorazepam 1 MG TAB PO PRN (21:31)
[2022-06-04] MEDS ORDERED: Lorazepam 2 MG/ML VIAL IM PRN (21:31)
[2022-06-04] MEDS ORDERED: Electrolyte Replacement Protocol 1 EACH FS SCH (21:45)
[2022-06-04 21:58] VITALS: BMI 18.1
[2022-06-04] MEDS ORDERED: Folic Acid 1 MG TAB PO SCH (22:00)
[2022-06-04] MEDS ORDERED: Thiamine HCl 200 MG/2 ML VIAL SLOW IVP SCH (22:00)
[2022-06-04] MEDS ORDERED: hydrALAZINE 20 MG/ML VIAL SLOW IVP PRN (22:02)
[2022-06-04 22:14] LABS: Troponin I 0.052 ng/mL (< 0.028)
[2022-06-04 22:22] LABS: Bilirubin, Direct 0.4 mg/dL (0.1-0.3); Phosphorus 3.8 mg/dL (2.3-4.7)
[2022-06-04 22:27] LABS: Alcohol 25 mg/dL (Less than 10)
[2022-06-04 22:30] LABS: Magnesium 1.9 mg/dL (1.6-2.6)
[2022-06-04] MEDS ORDERED: Aspirin 325 MG TAB PO SCH (22:30)
[2022-06-04] MEDS: Nitroglycerin 2% Ointment 1 INCH/1 GM Packet TOP SCH (22:42)
[2022-06-04 22:45] LABS: #Basophils 0.1 thou/uL (0.0-0.2); #Eosinphils 0.2 thou/uL (0.0-0.7); #Lymphocytes 3.9 thou/uL (1.20-3.40); #Monocytes 0.5 thou/uL (0.11-0.59); #Neutrophils 3.6 thou/uL (1.40-6.50); %Basophils 0.8 % (0.0-1.0); %Lymphocytes 47.2 % (21.0-51.0); %Monocytes 5.4 % (0.0-10.0); %Neutrophils 43.7 % (42.0-75.0); Hemoglobin 13.9 g/dL (14.0-18.0); Mean Corpuscular HGB CONC 32.3 g/dL (32.0-36.0); Mean Corpuscular Hemoglobin 34.2 pg (27.0-31.0); Mean Platelet Volume 8.4 fL (7.4-10.4); Platelet Count 145 thou/uL (130-400); RBC Distribution Width 11.1 % (11.5-14.5); Red Blood Cell (RBC) Count 4.05 mill/uL (4.70-6.10); White Blood Cell (WBC) Count 8.3 thou/uL (4.8-10.8)
[2022-06-04] MEDS: Lorazepam 1 MG TAB PO SCH (22:45)
[2022-06-04] MEDS ORDERED: Multivit, Therapeutic 1 TAB PO SCH (23:00)
[2022-06-05] MEDS ORDERED: Magnesium 2 GM/50 ML(in water) 2 GM in Premix Bag 1 BAG IVPB SCH (01:00)
[2022-06-05 01:57] LABS: Troponin I 0.036 ng/mL (< 0.028)
[2022-06-05] MEDS: Lorazepam 1 MG TAB PO SCH ×3 (03:26→16:43)
[2022-06-05 05:06] LABS: #Eosinphils 0.2 thou/uL (0.0-0.7); #Lymphocytes 2.9 thou/uL (1.20-3.40); #Monocytes 0.5 thou/uL (0.11-0.59); #Neutrophils 3.4 thou/uL (1.40-6.50); %Basophils 0.5 % (0.0-1.0); %Eosinophils 2.9 % (0.0-10.0); %Lymphocytes 41.2 % (21.0-51.0); %Neutrophils 48.4 % (42.0-75.0); Mean Corpuscular HGB CONC 32.4 g/dL (32.0-36.0); Mean Corpuscular Hemoglobin 33.9 pg (27.0-31.0); Mean Platelet Volume 8.8 fL (7.4-10.4); Platelet Count 153 thou/uL (130-400); RBC Distribution Width 11.1 % (11.5-14.5); Red Blood Cell (RBC) Count 3.84 mill/uL (4.70-6.10)
[2022-06-05 05:32] LABS: ALT (SGPT) 16 U/L (8-55); AST (SGOT) 31 U/L (5-34); Albumin 3.6 g/dL (3.5-5.0); Alkaline Phosphatase 82 U/L (40-110); Anion Gap 15 mmol/L (10-20); BUN (Urea Nitrogen) 9 mg/dL (8.4-25.7); Bilirubin, Total 1.8 mg/dL (0.2-1.2); Calc. Creatinine Clearance 73 mL/min (70-130); Calcium 9.2 mg/dL (7.8-10.44); Carbon Dioxide 20 mmol/L (22-29); Cardiac Risk 2.6 (Less than 4.5); Chloride 110 mmol/L (98-107); Cholesterol 138 mg/dl (< 200 Desired); Estimated GFR 102; Globulin 2.8 g/dL (2.4-3.5); Glucose 91 mg/dL (70-105); HDL Cholesterol 53 mg/dL (>60 Neg Risk); LDL Cholesterol, Calculated 71 mg/dL; Magnesium 2.4 mg/dL (1.6-2.6); Potassium 4.6 mmol/L (3.5-5.1); Protein, Total 6.4 g/dL (6.0-8.3); Sodium 140 mmol/L (136-145); Triglycerides 72 mg/dL (Less than 150)
[2022-06-05] MEDS: Nitroglycerin 2% Ointment 1 INCH/1 GM Packet TOP SCH ×2 (06:06→15:09)
[2022-06-05 07:18] LABS: Amphetamine Not Detected (NotDetected); Barbiturates Screen Not Detected (NotDetected); Benzodiazepine Screen Detected (NotDetected); Cocaine Metabolite Screen Not Detected (NotDetected); Methadone Not Detected (NotDetected); Methamphetamine Not Detected (NotDetected); Opiate Screen Not Detected (NotDetected); Oxycodone Screen Not Detected (NotDetected); Phencyclidine (PCP) Not Detected (NotDetected); THC/Cannabinoid Screen Detected (NotDetected); Tricyclic Screen Not Detected (NotDetected)
[2022-06-05] MEDS: Potassium Chloride 20 MEQ TAB PO SCH ×2 (07:49→17:19)
[2022-06-05] MEDS: Bumetanide 1 MG TAB PO SCH ×2 (07:50→17:19)
[2022-06-05] MEDS ORDERED: Carvedilol 25 MG TAB PO SCH ×4 (08:00→17:00)
[2022-06-05] MEDS ORDERED: Spironolactone 25 MG TAB PO SCH (08:00)
[2022-06-05] MEDS ORDERED: Thiamine 100 MG TAB PO SCH (09:00)
[2022-06-05] MEDS ORDERED: Folic Acid 1 MG TAB PO SCH (09:00)
[2022-06-05] MEDS ORDERED: Multivitamin W/ Minerals 1 TAB PO SCH (09:00)
[2022-06-05] MEDS ORDERED: Amlodipine 10 MG TAB PO SCH (09:00)
[2022-06-05] MEDS ORDERED: Multivit, Therapeutic 1 TAB PO SCH (09:00)
[2022-06-05] MEDS ORDERED: Apixaban 5 MG TAB PO SCH (09:00)
[2022-06-05] MEDS ORDERED: Sacubitril 49 MG/Valsartan 51 MG TABLET PO SCH (09:00)
[2022-06-05] MEDS ORDERED: Albuterol Sulfate 2.5 mg/3 ml Neb NEB PRN (09:32)
[2022-06-05] MEDS ORDERED: Mometasone 100 MCG/Formoterol 5 MCG 120 PUFF INHALER INH SCH ×2 (09:45→18:30)
[2022-06-05 11:02] LABS: Syphilis Antibody Index 7.19 S/CO (<1.00 Non-Reactive)
[2022-06-05 12:39] LABS: Syphilis Antibody INDETERMINATE (Nonreactive)
[2022-06-05 16:42] VITALS: BP 111/61; TEMP 97.7
[2022-06-05] MEDS ORDERED: Atorvastatin Calcium 40 MG TAB PO SCH (21:00)
[2022-06-05] MEDS ORDERED: Lorazepam 1 MG TAB PO PRN (21:31)
[2022-06-06] MEDS ORDERED: Aspirin 81 mg Enteric Coated Tablet PO SCH (09:00)
[2022-06-06] MEDS ORDERED: Lorazepam 1 MG TAB PO PRN (21:31)
[2022-06-06] MEDS ORDERED: Lorazepam 0.5 MG TAB PO SCH (22:00)
[2022-06-07] MEDS ORDERED: Thiamine 100 MG TAB PO SCH (09:00)
[2022-06-07] MEDS ORDERED: Lorazepam 0.5 MG TAB PO PRN (21:31)
== END 2022-06-05 18:40 | disposition home or self-care (01) ==
LOC: ERS 17:44 → 2SW 20:24
PROVIDERS: ADMIT Family Medicine; ATTEND Family Medicine
DX: R07.9 Chest pain, unspecified (principal); I11.0 Hypertensive heart disease with heart failure; I50.20 Unspecified systolic (congestive) heart failure; E87.6 Hypokalemia; D64.9 Anemia, unspecified; J44.9 Chronic obstructive pulmonary disease, unspecified; E80.6 Other disorders of bilirubin metabolism; R77.8 Other specified abnormalities of plasma proteins; F17.210 Nicotine dependence, cigarettes, uncomplicated; F14.11 Cocaine abuse, in remission; I42.8 Other cardiomyopathies; Z86.73 Personal history of transient ischemic attack (TIA), and cerebral infarction without residual deficits; Z79.01 Long term (current) use of anticoagulants; Z79.82 Long term (current) use of aspirin; Z79.899 Other long term (current) drug therapy; Z88.5 Allergy status to narcotic agent; Z95.810 Presence of automatic (implantable) cardiac defibrillator; Z20.822 Contact with and (suspected) exposure to COVID-19; V89.2XXA Person injured in unspecified motor-vehicle accident, traffic, initial encounter
CPT/HCPCS: 71045; 80053 ×2; 80061; 80306; 80307; 82248; 82553; 83735 ×2; 84100; 84484 ×3; 85025 ×3; 86593; 86780; 93005; 94640; 94760; 99285; U0003; U0005; 36415; 96365; 96375; G0378; J3411; J3475

== ENCOUNTER 2022-09-30 17:52 | Observation (INO) | payer OTHER, MEDICAID ==
[2022-09-30 18:51] VITALS: BMI 17.2
[2022-09-30] MEDS ORDERED: Acetaminophen 325 MG TAB PO PRN (19:08)
[2022-09-30] MEDS ORDERED: Ondansetron PF 4 MG/2 ML Vial IVP PRN (19:08)
[2022-09-30] MEDS ORDERED: Ondansetron ODT 4 MG TAB PO PRN (19:08)
[2022-09-30] MEDS ORDERED: Sodium Chloride 0.9% 500 ML IV SCH (19:15)
[2022-09-30 19:50] LABS: Magnesium 2.1 mg/dL (1.6-2.6); Phosphorus 4.2 mg/dL (2.3-4.7)
[2022-09-30 20:01] LABS: Troponin I 0.029 ng/mL (< 0.028)
[2022-09-30 22:44] LABS: Troponin I 0.026 ng/mL (< 0.028)
[2022-10-01 05:25] LABS: #Basophils 0.1 thou/uL (0.0-0.2); #Eosinphils 0.2 thou/uL (0.0-0.7); #Lymphocytes 3.5 thou/uL (1.20-3.40); #Monocytes 0.6 thou/uL (0.11-0.59); #Neutrophils 4.6 thou/uL (1.40-6.50); %Basophils 0.6 % (0.0-1.0); %Eosinophils 2.3 % (0.0-10.0); %Lymphocytes 38.8 % (21.0-51.0); %Monocytes 6.6 % (0.0-10.0); %Neutrophils 51.7 % (42.0-75.0); Hemoglobin 15.2 g/dL (14.0-18.0); Mean Corpuscular HGB CONC 31.9 g/dL (32.0-36.0); Mean Corpuscular Hemoglobin 32.9 pg (27.0-31.0); Mean Platelet Volume 9.3 fL (7.4-10.4); Platelet Count 181 10x3/uL (130-400); RBC Distribution Width 11.1 % (11.5-14.5); White Blood Cell (WBC) Count 8.9 10x3/uL (4.8-10.8)
[2022-10-01 05:44] LABS: Anion Gap 12 mmol/L (10-20); BUN (Urea Nitrogen) 31 mg/dL (8.4-25.7); Calc. Creatinine Clearance 48 mL/min (70-130); Calcium 9.5 mg/dL (7.8-10.44); Carbon Dioxide 28 mmol/L (22-29); Chloride 102 mmol/L (98-107); Estimated GFR 68; Glucose 126 mg/dL (70-105); Potassium 4.5 mmol/L (3.5-5.1); Sodium 137 mmol/L (136-145)
[2022-10-02 05:07] LABS: #Basophils 0.1 thou/uL (0.0-0.2); #Eosinphils 0.2 thou/uL (0.0-0.7); #Lymphocytes 3.4 thou/uL (1.20-3.40); #Monocytes 0.5 thou/uL (0.11-0.59); #Neutrophils 3.9 thou/uL (1.40-6.50); %Basophils 0.9 % (0.0-1.0); %Eosinophils 2.5 % (0.0-10.0); %Lymphocytes 41.9 % (21.0-51.0); %Monocytes 6.7 % (0.0-10.0); Hemoglobin 15.5 g/dL (14.0-18.0); Mean Corpuscular Hemoglobin 34.1 pg (27.0-31.0); Mean Platelet Volume 8.8 fL (7.4-10.4); Platelet Count 178 10x3/uL (130-400); Red Blood Cell (RBC) Count 4.55 mill/uL (4.70-6.10); White Blood Cell (WBC) Count 8.1 10x3/uL (4.8-10.8)
[2022-10-02 05:19] LABS: Anion Gap 10 mmol/L (10-20); BUN (Urea Nitrogen) 19 mg/dL (8.4-25.7); Calc. Creatinine Clearance 53 mL/min (70-130); Calcium 9.6 mg/dL (7.8-10.44); Carbon Dioxide 30 mmol/L (22-29); Chloride 102 mmol/L (98-107); Estimated GFR 76; Glucose 114 mg/dL (70-105); Potassium 4.6 mmol/L (3.5-5.1); Sodium 137 mmol/L (136-145)
[2022-10-02 11:51] VITALS: BP 143/70; TEMP 97.8
[2022-10-02] MEDS ORDERED: Carvedilol 3.125 MG TAB PO SCH (17:00)
== END 2022-10-02 15:01 | disposition home or self-care (01) ==
LOC: 2SW 17:52
PROVIDERS: ADMIT Internal Medicine; ATTEND Internal Medicine
DX: R00.1 Bradycardia, unspecified (principal); I95.9 Hypotension, unspecified; R77.8 Other specified abnormalities of plasma proteins; I13.0 Hypertensive heart and chronic kidney disease with heart failure and stage 1 through stage 4 chronic kidney disease, or unspecified chronic kidney disease; N18.2 Chronic kidney disease, stage 2 (mild); I50.20 Unspecified systolic (congestive) heart failure; N17.9 Acute kidney failure, unspecified; J44.9 Chronic obstructive pulmonary disease, unspecified; I42.8 Other cardiomyopathies; I25.10 Atherosclerotic heart disease of native coronary artery without angina pectoris; Z87.891 Personal history of nicotine dependence; Z79.01 Long term (current) use of anticoagulants; Z79.82 Long term (current) use of aspirin; Z79.899 Other long term (current) drug therapy; Z88.8 Allergy status to other drugs, medicaments and biological substances; Z95.810 Presence of automatic (implantable) cardiac defibrillator; Z20.822 Contact with and (suspected) exposure to COVID-19
CPT/HCPCS: 80048 ×2; 83735; 84100; 84484; 85025 ×2; U0003; U0005; 36415; G0378; J7030; Q0162

== ENCOUNTER 2022-10-25 17:10 | Observation (INO) | payer OTHER ==
[2022-10-25 18:18] LABS: #Basophils 0.1 thou/uL (0.0-0.2); #Eosinphils 0.2 thou/uL (0.0-0.7); #Lymphocytes 3.3 thou/uL (1.20-3.40); #Monocytes 0.6 thou/uL (0.11-0.59); #Neutrophils 3.6 thou/uL (1.40-6.50); %Basophils 0.9 % (0.0-1.0); %Eosinophils 3.1 % (0.0-10.0); %Lymphocytes 42.3 % (21.0-51.0); %Monocytes 7.5 % (0.0-10.0); %Neutrophils 46.2 % (42.0-75.0); Hemoglobin 13.1 g/dL (14.0-18.0); Mean Corpuscular HGB CONC 32.1 g/dL (32.0-36.0); Mean Corpuscular Hemoglobin 33.7 pg (27.0-31.0); Mean Platelet Volume 8.2 fL (7.4-10.4); Platelet Count 178 10x3/uL (130-400); RBC Distribution Width 11.2 % (11.5-14.5); Red Blood Cell (RBC) Count 3.88 mill/uL (4.70-6.10); White Blood Cell (WBC) Count 7.8 10x3/uL (4.8-10.8)
[2022-10-25 18:36] LABS: ALT (SGPT) 19 U/L (8-55); AST (SGOT) 22 U/L (5-34); Alkaline Phosphatase 75 U/L (40-110); Anion Gap 12 mmol/L (10-20); BUN (Urea Nitrogen) 9 mg/dL (8.4-25.7); Bilirubin, Total 1.5 mg/dL (0.2-1.2); CK (CPK) 128 U/L (30-200); Calc. Creatinine Clearance 0 mL/min (70-130); Calcium 9.2 mg/dL (7.8-10.44); Carbon Dioxide 27 mmol/L (22-29); Chloride 104 mmol/L (98-107); Estimated GFR 81; Globulin 2.8 g/dL (2.4-3.5); Glucose 118 mg/dL (70-105); Potassium 4.7 mmol/L (3.5-5.1); Protein, Total 6.8 g/dL (6.0-8.3); Sodium 138 mmol/L (136-145)
[2022-10-25] MEDS ORDERED: Aspirin Chewable 81 MG TAB ONE (22:30)
[2022-10-26] MEDS ORDERED: Nitroglycerin 0.4 MG TAB (25 Tab Bottle) SL PRN (01:39)
[2022-10-26] MEDS ORDERED: Ondansetron ODT 4 MG TAB PO PRN (01:52)
[2022-10-26] MEDS ORDERED: Ondansetron PF 4 MG/2 ML Vial IVP PRN (01:52)
[2022-10-26] MEDS ORDERED: Acetaminophen 650 MG Suppository PR PRN (01:52)
[2022-10-26] MEDS ORDERED: Acetaminophen 325 MG TAB PO PRN (01:52)
[2022-10-26 02:13] LABS: Troponin I 0.027 ng/mL (< 0.028)
[2022-10-26] MEDS ORDERED: Guaifenesin DM 100-10/5 ML UDCUP PO PRN (02:38)
[2022-10-26 05:02] LABS: Troponin I 0.033 ng/mL (< 0.028)
[2022-10-26 06:17] LABS: SARS-CoV-2 NAA Rapid Test Not Detected (NotDetected)
[2022-10-26] MEDS ORDERED: Mometasone 100 MCG/Formoterol 5 MCG 120 PUFF INHALER INH SCH (06:30)
[2022-10-26 08:43] VITALS: BMI 18.6
[2022-10-26] MEDS ORDERED: FLU VACC QS2022-23(6MOS UP)/PF 60 MCG/0.5 ML SYRINGE IM ONE (12:30)
[2022-10-26] MEDS ORDERED: Bumetanide 1 MG TAB PO SCH (16:30)
[2022-10-26 17:50] LABS: Amphetamine Not Detected (NotDetected); Barbiturates Screen Not Detected (NotDetected); Benzodiazepine Screen Not Detected (NotDetected); Cocaine Metabolite Screen Not Detected (NotDetected); Methadone Not Detected (NotDetected); Methamphetamine Not Detected (NotDetected); Opiate Screen Not Detected (NotDetected); Oxycodone Screen Not Detected (NotDetected); Phencyclidine (PCP) Not Detected (NotDetected); THC/Cannabinoid Screen Not Detected (NotDetected); Tricyclic Screen Not Detected (NotDetected)
[2022-10-26] MEDS ORDERED: Mometasone 200 MCG/Formoterol 5 MCG 120 PUFF INHALER INH SCH (18:30)
[2022-10-26 19:25] VITALS: BP 122/61; TEMP 98
[2022-10-26] MEDS ORDERED: Apixaban 5 MG TAB PO SCH (21:00)
[2022-10-26] MEDS ORDERED: Atorvastatin Calcium 40 MG TAB PO SCH (21:00)
[2022-10-26] MEDS ORDERED: Carvedilol 3.125 MG TAB PO SCH (21:00)
[2022-10-27] MEDS ORDERED: Mometasone/Formoterol 200/5 60 PUFF INH SCH (06:30)
[2022-10-27] MEDS ORDERED: Spironolactone 25 MG TAB PO SCH (08:00)
[2022-10-27] MEDS ORDERED: Folic Acid 1 MG TAB PO SCH (09:00)
[2022-10-27] MEDS ORDERED: Sertraline 25 MG TAB PO SCH (09:00)
[2022-10-27] MEDS ORDERED: Aspirin 81 mg Enteric Coated Tablet PO SCH (09:00)
== END 2022-10-26 21:08 ==
LOC: ERS 17:10 → EEVIPCON 22:24 → ERHOLD 22:24 → 2SW 10-26 08:29
PROVIDERS: ADMIT Internal Medicine; ATTEND Nurse Practitioner Acute Care
DX: R07.89 Other chest pain (principal); R77.8 Other specified abnormalities of plasma proteins; I42.8 Other cardiomyopathies; J42 Unspecified chronic bronchitis; I11.0 Hypertensive heart disease with heart failure; I50.22 Chronic systolic (congestive) heart failure; E78.5 Hyperlipidemia, unspecified; I25.10 Atherosclerotic heart disease of native coronary artery without angina pectoris; Z86.73 Personal history of transient ischemic attack (TIA), and cerebral infarction without residual deficits; Z87.891 Personal history of nicotine dependence; Z79.01 Long term (current) use of anticoagulants; Z79.82 Long term (current) use of aspirin; Z79.899 Other long term (current) drug therapy; Z88.8 Allergy status to other drugs, medicaments and biological substances; Z91.018 Allergy to other foods; Z95.810 Presence of automatic (implantable) cardiac defibrillator; Z20.822 Contact with and (suspected) exposure to COVID-19
CPT/HCPCS: 36415; 71045; 80053; 80306; 82550; 83880; 84484; 93005; 94760; G0378; J7620; U0002

== ENCOUNTER 2023-01-07 11:54 | Emergency (ER) | payer OTHER ==
[2023-01-07 12:46] LABS: #Basophils 0.1 thou/uL (0.0-0.2); #Eosinphils 0.3 thou/uL (0.0-0.7); #Lymphocytes 3.1 thou/uL (1.20-3.40); #Monocytes 0.6 thou/uL (0.11-0.59); #Neutrophils 4.7 thou/uL (1.40-6.50); %Basophils 0.6 % (0.0-1.0); %Eosinophils 3.2 % (0.0-10.0); %Lymphocytes 35.7 % (21.0-51.0); %Monocytes 6.6 % (0.0-10.0); Hemoglobin 13.7 g/dL (14.0-18.0); Mean Corpuscular HGB CONC 32.4 g/dL (32.0-36.0); Mean Corpuscular Hemoglobin 33.1 pg (27.0-31.0); Mean Platelet Volume 7.5 fL (7.4-10.4); Platelet Count 198 10x3/uL (130-400); Red Blood Cell (RBC) Count 4.13 mill/uL (4.70-6.10); White Blood Cell (WBC) Count 8.7 10x3/uL (4.8-10.8)
[2023-01-07 13:06] LABS: Bacteria/HPF None Seen HPF (None Seen); Bilirubin Negative (Negative); Blood, Urine 1+ (Negative); Clarity Clear (Clear); Glucose, Urine (Dipstick) Normal (Negative); Ketone, Urine Negative (Negative); Leukocyte Negative Leu/uL (Negative); Nitrite Negative (Negative); Protein, Urine (Dipstick) Negative (Neg-Trace); Squamous Epithelial 0-3 HPF (0-3); Urobilinogen Normal mg/dL (Less than 2); WBC/HPF 0-3 HPF (0-3)
[2023-01-07 13:14] LABS: ALT (SGPT) 28 U/L (8-55); AST (SGOT) 25 U/L (5-34); Albumin 4.4 g/dL (3.5-5.0); Alkaline Phosphatase 93 U/L (40-110); Anion Gap 10 mmol/L (10-20); BUN (Urea Nitrogen) 11 mg/dL (8.4-25.7); Bilirubin, Total 1.7 mg/dL (0.2-1.2); Calc. Creatinine Clearance 0 mL/min (70-130); Calcium 9.8 mg/dL (7.8-10.44); Carbon Dioxide 27 mmol/L (22-29); Chloride 105 mmol/L (98-107); Estimated GFR 96; Globulin 3.4 g/dL (2.4-3.5); Glucose 106 mg/dL (70-105); Lipase 19 U/L (8-78); Potassium 4.9 mmol/L (3.5-5.1); Protein, Total 7.8 g/dL (6.0-8.3); Sodium 137 mmol/L (136-145)
== END 2023-01-07 15:09 | disposition home or self-care (01) ==
LOC: ERS 11:54 → EEVIPCON 11:54 → ERS 15:09
DX: K62.5 Hemorrhage of anus and rectum (principal); J44.9 Chronic obstructive pulmonary disease, unspecified; I11.0 Hypertensive heart disease with heart failure; I50.9 Heart failure, unspecified; F17.210 Nicotine dependence, cigarettes, uncomplicated; Z79.899 Other long term (current) drug therapy; Z79.01 Long term (current) use of anticoagulants
CPT/HCPCS: 36415; 74177; 80053; 81003; 81015; 83690; 85025; 86850; 86900; 86901

== ENCOUNTER 2023-03-05 00:58 | Emergency (ER) | payer OTHER, MEDICAID ==
[2023-03-05 02:32] LABS: #Basophils 0.1 thou/uL (0.0-0.2); #Eosinphils 0.2 thou/uL (0.0-0.7); #Lymphocytes 2.5 thou/uL (1.20-3.40); #Monocytes 0.6 thou/uL (0.11-0.59); #Neutrophils 9.1 thou/uL (1.40-6.50); %Basophils 0.6 % (0.0-1.0); %Eosinophils 1.7 % (0.0-10.0); %Monocytes 4.4 % (0.0-10.0); %Neutrophils 73.2 % (42.0-75.0); Hemoglobin 14.6 g/dL (14.0-18.0); Mean Corpuscular Hemoglobin 35.3 pg (27.0-31.0); Mean Platelet Volume 9.1 fL (7.4-10.4); Platelet Count 213 10x3/uL (130-400); RBC Distribution Width 11.2 % (11.5-14.5); Red Blood Cell (RBC) Count 4.12 mill/uL (4.70-6.10); White Blood Cell (WBC) Count 12.4 10x3/uL (4.8-10.8)
[2023-03-05 02:53] LABS: ALT (SGPT) 21 U/L (8-55); AST (SGOT) 20 U/L (5-34); Albumin 4.6 g/dL (3.5-5.0); Alkaline Phosphatase 105 U/L (40-110); Anion Gap 17 mmol/L (10-20); BUN (Urea Nitrogen) 14 mg/dL (8.4-25.7); Calc. Creatinine Clearance 0 mL/min (70-130); Calcium 9.8 mg/dL (7.8-10.44); Carbon Dioxide 23 mmol/L (22-29); Chloride 103 mmol/L (98-107); Estimated GFR 58; Globulin 3.6 g/dL (2.4-3.5); Glucose 107 mg/dL (70-105); Protein, Total 8.2 g/dL (6.0-8.3); Sodium 139 mmol/L (136-145)
[2023-03-05 03:13] LABS: CKMB 0.9 ng/mL (0-6.6)
[2023-03-05 04:00] LABS: Troponin I 0.025 ng/mL (< 0.028)
== END 2023-03-05 04:27 | disposition home or self-care (01) ==
LOC: ERS 00:58
DX: R07.9 Chest pain, unspecified (principal); I11.0 Hypertensive heart disease with heart failure; I50.9 Heart failure, unspecified; J44.9 Chronic obstructive pulmonary disease, unspecified; F17.210 Nicotine dependence, cigarettes, uncomplicated; Z79.899 Other long term (current) drug therapy
CPT/HCPCS: 36415; 71045; 80053; 82553; 83880; 84484; 85025; 93005

== ENCOUNTER 2023-03-19 12:40 | Outpatient (CLI) | payer OTHER | END 2023-03-19 12:41 | disposition home or self-care (01) | LOC: ULT 12:40 | PROVIDERS: ATTEND Internal Medicine Cardiovascular Disease | DX: I50.22 Chronic systolic (congestive) heart failure (principal); I08.3 Combined rheumatic disorders of mitral, aortic and tricuspid valves | CPT/HCPCS: 93306 ==

== ENCOUNTER 2023-03-19 18:07 | Emergency (ER) | payer OTHER ==
[2023-03-19 18:57] LABS: #Basophils 0.1 thou/uL (0.0-0.2); #Eosinphils 0.2 thou/uL (0.0-0.7); #Lymphocytes 4.6 thou/uL (1.20-3.40); #Monocytes 0.8 thou/uL (0.11-0.59); %Eosinophils 1.7 % (0.0-10.0); %Lymphocytes 39.4 % (21.0-51.0); %Monocytes 6.6 % (0.0-10.0); %Neutrophils 51.3 % (42.0-75.0); Hemoglobin 12.3 g/dL (14.0-18.0); Mean Corpuscular HGB CONC 34.2 g/dL (32.0-36.0); Mean Corpuscular Hemoglobin 34.4 pg (27.0-31.0); Mean Platelet Volume 8.2 fL (7.4-10.4); Platelet Count 207 10x3/uL (130-400); RBC Distribution Width 11.2 % (11.5-14.5); Red Blood Cell (RBC) Count 3.58 mill/uL (4.70-6.10); White Blood Cell (WBC) Count 11.7 10x3/uL (4.8-10.8)
[2023-03-19 19:19] LABS: ALT (SGPT) 12 U/L (8-55); AST (SGOT) 17 U/L (5-34); Albumin 4.3 g/dL (3.5-5.0); Alkaline Phosphatase 93 U/L (40-110); Anion Gap 14 mmol/L (10-20); BUN (Urea Nitrogen) 29 mg/dL (8.4-25.7); Bilirubin, Total 0.7 mg/dL (0.2-1.2); Calc. Creatinine Clearance 0 mL/min (70-130); Calcium 9.2 mg/dL (7.8-10.44); Carbon Dioxide 23 mmol/L (22-29); Chloride 101 mmol/L (98-107); Estimated GFR 46; Globulin 3.2 g/dL (2.4-3.5); Glucose 100 mg/dL (70-105); Potassium 4.2 mmol/L (3.5-5.1); Protein, Total 7.5 g/dL (6.0-8.3); Sodium 134 mmol/L (136-145)
== END 2023-03-19 19:50 | disposition home or self-care (01) ==
LOC: ERS 18:07
DX: K62.5 Hemorrhage of anus and rectum (principal); D72.829 Elevated white blood cell count, unspecified; I11.0 Hypertensive heart disease with heart failure; I50.9 Heart failure, unspecified; J44.9 Chronic obstructive pulmonary disease, unspecified; Z87.891 Personal history of nicotine dependence; Z79.899 Other long term (current) drug therapy; Z79.01 Long term (current) use of anticoagulants
CPT/HCPCS: 36415; 80053; 85025; 86850; 86900; 86901; 99283

== ENCOUNTER 2023-03-22 07:08 | Emergency (ER) | payer OTHER ==
[2023-03-22 08:58] LABS: #Basophils 0.1 thou/uL (0.0-0.2); #Eosinphils 0.2 thou/uL (0.0-0.7); #Lymphocytes 2.8 thou/uL (1.20-3.40); #Monocytes 0.6 thou/uL (0.11-0.59); #Neutrophils 5.9 thou/uL (1.40-6.50); %Basophils 0.9 % (0.0-1.0); %Eosinophils 2.3 % (0.0-10.0); %Lymphocytes 29.3 % (21.0-51.0); %Monocytes 6.4 % (0.0-10.0); %Neutrophils 61.1 % (42.0-75.0); Hemoglobin 13.4 g/dL (14.0-18.0); Mean Corpuscular HGB CONC 31.7 g/dL (32.0-36.0); Mean Platelet Volume 8.4 fL (7.4-10.4); Platelet Count 210 10x3/uL (130-400); RBC Distribution Width 11.6 % (11.5-14.5); Red Blood Cell (RBC) Count 4.18 mill/uL (4.70-6.10); White Blood Cell (WBC) Count 9.7 10x3/uL (4.8-10.8)
[2023-03-22 09:01] LABS: ALT (SGPT) 18 U/L (8-55); AST (SGOT) 19 U/L (5-34); Albumin 4.6 g/dL (3.5-5.0); Alkaline Phosphatase 107 U/L (40-110); Anion Gap 14 mmol/L (10-20); BUN (Urea Nitrogen) 24 mg/dL (8.4-25.7); Bilirubin, Total 1.2 mg/dL (0.2-1.2); Calc. Creatinine Clearance 0 mL/min (70-130); Calcium 10.3 mg/dL (7.8-10.44); Carbon Dioxide 23 mmol/L (22-29); Chloride 102 mmol/L (98-107); Estimated GFR 66; Globulin 3.7 g/dL (2.4-3.5); Glucose 79 mg/dL (70-105); Lipase 33 U/L (8-78); Potassium 4.3 mmol/L (3.5-5.1); Protein, Total 8.3 g/dL (6.0-8.3); Sodium 135 mmol/L (136-145)
[2023-03-22 09:27] LABS: INR-International Normal Ratio 1.1; PTT 27.2 sec (22.9-36.1); Prothrombin Time 14.8 sec (12.0-14.7)
== END 2023-03-22 09:55 | disposition home or self-care (01) ==
LOC: ERS 07:08
DX: K92.1 Melena (principal); I11.0 Hypertensive heart disease with heart failure; I50.9 Heart failure, unspecified; J44.9 Chronic obstructive pulmonary disease, unspecified; Z87.891 Personal history of nicotine dependence; Z79.01 Long term (current) use of anticoagulants; Z79.899 Other long term (current) drug therapy; Z79.82 Long term (current) use of aspirin
CPT/HCPCS: 36415; 80053; 83690; 85025; 85610; 85730; 99283

== ENCOUNTER 2023-03-23 06:39 | Day surgery (SDC) | payer OTHER, MEDICAID ==
[2023-03-22 13:12] VITALS: BMI 18.8
[2023-03-23] MEDS ORDERED: Vasopressin 20 UNITS/ML VIAL ONE (07:28)
[2023-03-23] MEDS ORDERED: KETAMINE 100 MG/ML (5ML VIAL) ONE (07:29)
[2023-03-23] MEDS ORDERED: PROPOFOL 200 MG/20 ML VIAL ONE (07:37)
[2023-03-23] MEDS ORDERED: Lidocaine 1% PF 5 ML VIAL ONE (07:37)
== END 2023-03-23 09:50 | disposition home or self-care (01) ==
LOC: SDC 06:39
PROVIDERS: ATTEND Internal Medicine Gastroenterology
PROC: 0DBG8ZX Excision of Left Large Intestine, Via Natural or Artificial Opening Endoscopic, Diagnostic (ICD-10-PCS; principal; 2023-03-23)
PROC: 0DBF8ZX Excision of Right Large Intestine, Via Natural or Artificial Opening Endoscopic, Diagnostic (ICD-10-PCS; 2023-03-23)
DX: K92.1 Melena (principal); K52.9 Noninfective gastroenteritis and colitis, unspecified; K64.2 Third degree hemorrhoids; J44.9 Chronic obstructive pulmonary disease, unspecified; I10 Essential (primary) hypertension; I48.91 Unspecified atrial fibrillation; R63.4 Abnormal weight loss; Z68.1 Body mass index [BMI] 19.9 or less, adult; Z86.73 Personal history of transient ischemic attack (TIA), and cerebral infarction without residual deficits; Z79.01 Long term (current) use of anticoagulants; Z79.82 Long term (current) use of aspirin; Z79.899 Other long term (current) drug therapy; Z88.8 Allergy status to other drugs, medicaments and biological substances; Z91.018 Allergy to other foods; Z95.810 Presence of automatic (implantable) cardiac defibrillator
CPT/HCPCS: 88305; J2704

== ENCOUNTER 2023-05-24 18:25 | Inpatient (IN) | payer OTHER, MEDICAID ==
[2023-05-24 18:55] LABS: #Monocytes 0.4 thou/uL (0.11-0.59); #Neutrophils 11.1 thou/uL (1.40-6.50); %Basophils 0.2 % (0.0-1.0); %Lymphocytes 9.5 % (21.0-51.0); %Neutrophils 86.8 % (42.0-75.0); Hemoglobin 15.3 g/dL (14.0-18.0); Mean Corpuscular HGB CONC 33.6 g/dL (32.0-36.0); Mean Corpuscular Hemoglobin 33.6 pg (27.0-31.0); Mean Platelet Volume 10.5 fL (7.4-10.4); Platelet Count 274 10x3/uL (130-400); RBC Distribution Width 12.2 % (11.5-14.5); Red Blood Cell (RBC) Count 4.56 mill/uL (4.70-6.10); White Blood Cell (WBC) Count 12.8 10x3/uL (4.8-10.8)
[2023-05-24 19:19] LABS: Calcium 10.3 mg/dL (7.8-10.44)
[2023-05-24 19:32] LABS: ALT (SGPT) 18 U/L (8-55); AST (SGOT) 14 U/L (5-34); Albumin 4.8 g/dL (3.5-5.0); Alkaline Phosphatase 95 U/L (40-110); Anion Gap 24 mmol/L (10-20); BUN (Urea Nitrogen) 21 mg/dL (8.4-25.7); Bilirubin, Total 1.2 mg/dL (0.2-1.2); Calc. Creatinine Clearance 0 mL/min (70-130); Carbon Dioxide 23 mmol/L (22-29); Chloride 101 mmol/L (98-107); Estimated GFR 31; Globulin 3.6 g/dL (2.4-3.5); Glucose 178 mg/dL (70-105); Magnesium 1.8 mg/dL (1.6-2.6); Potassium 4.5 mmol/L (3.5-5.1); Protein, Total 8.4 g/dL (6.0-8.3); Sodium 143 mmol/L (136-145)
[2023-05-24] MEDS ORDERED: Ondansetron PF 4 MG/2 ML Vial ONE (20:02)
[2023-05-24] MEDS ORDERED: Ipratropium/Albuterol 3 ML NEB ONE (20:02)
[2023-05-24 21:13] LABS: SARS-CoV-2 NAA Rapid Test Not Detected (NotDetected)
[2023-05-24 22:26] LABS: Amphetamine Not Detected (NotDetected); Barbiturates Screen Not Detected (NotDetected); Benzodiazepine Screen Not Detected (NotDetected); Bilirubin Negative (Negative); Blood, Urine 1+ (Negative); CAUTI Indications for Culture Alt mental st,lethar; Clarity Turbid (Clear); Cocaine Metabolite Screen Not Detected (NotDetected); Glucose, Urine (Dipstick) Normal (Negative); Ketone, Urine Negative (Negative); Leukocyte 25 Leu/uL (Negative); Methadone Not Detected (NotDetected); Methamphetamine Not Detected (NotDetected); Nitrite Negative (Negative); Opiate Screen Not Detected (NotDetected); Oxycodone Screen Not Detected (NotDetected); Phencyclidine (PCP) Not Detected (NotDetected); Protein, Urine (Dipstick) 50 mg/dL (Neg-Trace); THC/Cannabinoid Screen Detected (NotDetected); Transitional Epithelial 0-3 HPF (None Seen); Tricyclic Screen Not Detected (NotDetected); Urobilinogen Normal mg/dL (Less than 2); WBC/HPF 0-3 HPF (0-3)
[2023-05-24] MEDS ORDERED: Acetaminophen 325 MG TAB PO PRN (22:31)
[2023-05-24] MEDS ORDERED: Ondansetron PF 4 MG/2 ML Vial IVP PRN (22:31)
[2023-05-24 22:33] LABS: Bacteria/HPF 1+ HPF (None Seen)
[2023-05-24 22:35] LABS: Urine Culture Reflex No No
[2023-05-24] MEDS ORDERED: Ipratropium/Albuterol 3 ML NEB EZPAP PRN (22:46)
[2023-05-25] MEDS: Ipratropium/Albuterol 3 ML NEB EZPAP SCH ×4 (01:00→18:43)
[2023-05-25] MEDS: cefTRIAXone\\ROCEPHIN 1 GM in Sodium Chloride 0.9% 100 ML IVPB SCH ×2 (01:05→22:24)
[2023-05-25 04:48] VITALS: BMI 18.1
[2023-05-25 05:42] LABS: #Basophils 0.1 thou/uL (0.0-0.2); #Monocytes 0.9 thou/uL (0.11-0.59); #Neutrophils 9.7 thou/uL (1.40-6.50); %Basophils 0.3 % (0.0-1.0); %Eosinophils 0.3 % (0.0-10.0); %Lymphocytes 28.1 % (21.0-51.0); %Monocytes 5.9 % (0.0-10.0); %Neutrophils 65.1 % (42.0-75.0); Hemoglobin 14.1 g/dL (14.0-18.0); Mean Corpuscular HGB CONC 32.8 g/dL (32.0-36.0); Mean Corpuscular Hemoglobin 33.7 pg (27.0-31.0); Mean Corpuscular Volume 102.9 fl (78.0-98.0); Mean Platelet Volume 10.3 fL (7.4-10.4); Platelet Count 234 10x3/uL (130-400); RBC Distribution Width 12.5 % (11.5-14.5); Red Blood Cell (RBC) Count 4.18 mill/uL (4.70-6.10); White Blood Cell (WBC) Count 14.9 10x3/uL (4.8-10.8)
[2023-05-25 06:33] LABS: Anion Gap 16 mmol/L (10-20); BUN (Urea Nitrogen) 23 mg/dL (8.4-25.7); Calc. Creatinine Clearance 40 mL/min (70-130); Calcium 9.8 mg/dL (7.8-10.44); Carbon Dioxide 22 mmol/L (22-29); Chloride 105 mmol/L (98-107); Estimated GFR 50; Glucose 110 mg/dL (70-105); Potassium 4.3 mmol/L (3.5-5.1); Sodium 139 mmol/L (136-145)
[2023-05-25] MEDS ORDERED: predniSONE 20 MG TAB PO SCH (08:00)
[2023-05-25] MEDS: Apixaban 5 MG TAB PO SCH ×2 (08:33→22:11)
[2023-05-25] MEDS ORDERED: Azithromycin 250 MG TAB PO SCH (09:00)
[2023-05-25] MEDS ORDERED: Atorvastatin Calcium 40 MG TAB PO SCH (21:00)
[2023-05-26] MEDS: Ipratropium/Albuterol 3 ML NEB EZPAP SCH ×2 (01:55→07:04)
[2023-05-26 05:44] LABS: #Basophils 0.1 thou/uL (0.0-0.2); #Eosinphils 0.1 thou/uL (0.0-0.7); #Monocytes 0.9 thou/uL (0.11-0.59); #Neutrophils 9.3 thou/uL (1.40-6.50); %Basophils 0.4 % (0.0-1.0); %Eosinophils 0.3 % (0.0-10.0); Hemoglobin 13.5 g/dL (14.0-18.0); Mean Corpuscular HGB CONC 32.8 g/dL (32.0-36.0); Mean Corpuscular Hemoglobin 33.8 pg (27.0-31.0); Mean Platelet Volume 10.5 fL (7.4-10.4); Platelet Count 207 10x3/uL (130-400); RBC Distribution Width 12.3 % (11.5-14.5)
[2023-05-26 06:44] LABS: Anion Gap 15 mmol/L (10-20); BUN (Urea Nitrogen) 23 mg/dL (8.4-25.7); Calc. Creatinine Clearance 55 mL/min (70-130); Calcium 9.8 mg/dL (7.8-10.44); Carbon Dioxide 23 mmol/L (22-29); Chloride 101 mmol/L (98-107); Estimated GFR 75; Glucose 91 mg/dL (70-105); Potassium 4.2 mmol/L (3.5-5.1); Sodium 135 mmol/L (136-145)
[2023-05-26] MEDS: Apixaban 5 MG TAB PO SCH (08:58)
[2023-05-26] MEDS ORDERED: Sertraline 100 MG TAB PO SCH (09:00)
[2023-05-26] MEDS ORDERED: Aspirin 81 mg Enteric Coated Tablet PO SCH (09:00)
[2023-05-26] MEDS ORDERED: Folic Acid 1 MG TAB PO SCH (09:00)
[2023-05-26 12:09] VITALS: BP 151/76; TEMP 98.6
== END 2023-05-26 13:26 | disposition home or self-care (01) | DRG 683 ==
LOC: ERS 18:25 → 2SW 22:31 → OBSVTOIN 05-25 15:23
PROVIDERS: ADMIT Internal Medicine; ATTEND Internal Medicine
DX: N17.9 Acute kidney failure, unspecified (principal); I50.42 Chronic combined systolic (congestive) and diastolic (congestive) heart failure; N39.0 Urinary tract infection, site not specified; I25.10 Atherosclerotic heart disease of native coronary artery without angina pectoris; I25.5 Ischemic cardiomyopathy; I11.0 Hypertensive heart disease with heart failure; E78.5 Hyperlipidemia, unspecified; D64.9 Anemia, unspecified; F32.A Depression, unspecified; G47.33 Obstructive sleep apnea (adult) (pediatric); F41.9 Anxiety disorder, unspecified; Z20.822 Contact with and (suspected) exposure to COVID-19; Z79.899 Other long term (current) drug therapy; Z95.810 Presence of automatic (implantable) cardiac defibrillator; Z88.8 Allergy status to other drugs, medicaments and biological substances; Z91.018 Allergy to other foods; Z79.82 Long term (current) use of aspirin; Z79.2 Long term (current) use of antibiotics; Z86.73 Personal history of transient ischemic attack (TIA), and cerebral infarction without residual deficits; Z87.891 Personal history of nicotine dependence; J44.9 Chronic obstructive pulmonary disease, unspecified; E86.0 Dehydration
CPT/HCPCS: 36415; 36416; 71045; 80048; 80053; 80306; 81001; 82550; 82553; 83605; 83735; 83880; 84443; 84484; 85025; 87086; 93005; 94640; 96374; G0378; J0461; J0696; J2405; J3490; J7512; J7620

== ENCOUNTER 2023-06-19 15:37 | Observation (INO) | payer MEDICAID, OTHER ==
[2023-06-19] MEDS ORDERED: Aspirin Chewable 81 MG TAB ONE (16:18)
[2023-06-19 16:20] LABS: #Eosinphils 0.1 thou/uL (0.0-0.7); #Monocytes 0.4 thou/uL (0.11-0.59); #Neutrophils 2.6 thou/uL (1.40-6.50); %Basophils 0.5 % (0.0-1.0); %Eosinophils 2.1 % (0.0-10.0); %Monocytes 6.1 % (0.0-10.0); %Neutrophils 42.1 % (42.0-75.0); Hematocrit 38.7 % (42.0-52.0); Hemoglobin 12.8 g/dL (14.0-18.0); Mean Corpuscular HGB CONC 33.1 g/dL (32.0-36.0); Mean Corpuscular Hemoglobin 33.7 pg (27.0-31.0); Mean Corpuscular Volume 101.8 fl (78.0-98.0); Platelet Count 163 10x3/uL (130-400); White Blood Cell (WBC) Count 6.2 10x3/uL (4.8-10.8)
[2023-06-19 16:46] LABS: ALT (SGPT) 10 U/L (8-55); AST (SGOT) 19 U/L (5-34); Albumin 4.3 g/dL (3.5-5.0); Alkaline Phosphatase 74 U/L (40-110); Anion Gap 15 mmol/L (10-20); BUN (Urea Nitrogen) 10 mg/dL (8.4-25.7); Bilirubin, Total 1.1 mg/dL (0.2-1.2); Calc. Creatinine Clearance 0 mL/min (70-130); Calcium 9.5 mg/dL (7.8-10.44); Carbon Dioxide 20 mmol/L (22-29); Chloride 107 mmol/L (98-107); Estimated GFR 65; Globulin 2.7 g/dL (2.4-3.5); Glucose 147 mg/dL (70-105); Potassium 3.2 mmol/L (3.5-5.1); Sodium 139 mmol/L (136-145)
[2023-06-19 17:05] LABS: CKMB 2.5 ng/mL (0-6.6)
[2023-06-19] MEDS ORDERED: Acetaminophen 325 MG TAB PO PRN (18:17)
[2023-06-19] MEDS ORDERED: Bisacodyl 5 MG TAB PO PRN (18:17)
[2023-06-19] MEDS ORDERED: Senokot S 8.6-50 MG TAB PO PRN (18:17)
[2023-06-19] MEDS ORDERED: Ondansetron PF 4 MG/2 ML Vial IVP PRN (18:17)
[2023-06-19] MEDS ORDERED: Potassium Chloride 20 MEQ TAB PO SCH (18:30)
[2023-06-19] MEDS ORDERED: Sodium Chloride 0.9% 1,000 ML IV SCH (19:00)
[2023-06-19 20:36] LABS: Troponin I 0.021 ng/mL (< 0.028)
[2023-06-19 21:57] LABS: Amphetamine Not Detected (NotDetected); Barbiturates Screen Not Detected (NotDetected); Benzodiazepine Screen Not Detected (NotDetected); Cocaine Metabolite Screen Detected (NotDetected); Methadone Not Detected (NotDetected); Methamphetamine Not Detected (NotDetected); Opiate Screen Not Detected (NotDetected); Oxycodone Screen Not Detected (NotDetected); Phencyclidine (PCP) Not Detected (NotDetected); THC/Cannabinoid Screen Detected (NotDetected); Tricyclic Screen Not Detected (NotDetected)
[2023-06-19 23:07] LABS: Troponin I 0.028 ng/mL (< 0.028)
[2023-06-20 01:31] VITALS: BMI 17.9
[2023-06-20 05:29] LABS: Hematocrit 39.9 % (42.0-52.0); Hemoglobin 12.8 g/dL (14.0-18.0); Mean Corpuscular Hemoglobin 33.4 pg (27.0-31.0); Mean Corpuscular Volume 104.2 fl (78.0-98.0); Red Blood Cell (RBC) Count 3.83 mill/uL (4.70-6.10); White Blood Cell (WBC) Count 5.2 10x3/uL (4.8-10.8)
[2023-06-20 05:30] LABS: #Basophils 0.1 thou/uL (0.0-0.2); #Eosinphils 0.2 thou/uL (0.0-0.7); #Monocytes 0.4 thou/uL (0.11-0.59); #Neutrophils 1.9 thou/uL (1.40-6.50); %Eosinophils 3.1 % (0.0-10.0); %Lymphocytes 52.8 % (21.0-51.0); %Monocytes 7.3 % (0.0-10.0); %Neutrophils 35.4 % (42.0-75.0); Mean Corpuscular HGB CONC 32.1 g/dL (32.0-36.0); Mean Platelet Volume 10.7 fL (7.4-10.4); Platelet Count 163 10x3/uL (130-400)
[2023-06-20 05:54] LABS: ALT (SGPT) 9 U/L (8-55); AST (SGOT) 17 U/L (5-34); Alkaline Phosphatase 71 U/L (40-110); Anion Gap 12 mmol/L (10-20); BUN (Urea Nitrogen) 12 mg/dL (8.4-25.7); Bilirubin, Direct 0.5 mg/dL (0.1-0.3); Bilirubin, Total 1.3 mg/dL (0.2-1.2); Calc. Creatinine Clearance 54 mL/min (70-130); Calcium 9.7 mg/dL (7.8-10.44); Carbon Dioxide 23 mmol/L (22-29); Cardiac Risk 2.3 (Less than 4.5); Chloride 109 mmol/L (98-107); Cholesterol 174 mg/dl (< 200 Desired); Estimated GFR 75; Glucose 81 mg/dL (70-105); HDL Cholesterol 77 mg/dL (>60 Neg Risk); LDL Cholesterol, Calculated 86 mg/dL; Magnesium 1.9 mg/dL (1.6-2.6); Potassium 4.4 mmol/L (3.5-5.1); Protein, Total 6.8 g/dL (6.0-8.3); Sodium 140 mmol/L (136-145); Triglycerides 57 mg/dL (Less than 150)
[2023-06-20] MEDS ORDERED: Spironolactone 25 MG TAB PO SCH (08:00)
[2023-06-20] MEDS: Carvedilol 6.25 MG TAB PO SCH ×2 (08:21→17:14)
[2023-06-20] MEDS ORDERED: Aspirin 81 mg Enteric Coated Tablet PO SCH (09:00)
[2023-06-20] MEDS ORDERED: Amlodipine 10 MG TAB PO SCH (09:00)
[2023-06-20] MEDS ORDERED: Sacubitril 49 MG/Valsartan 51 MG TABLET PO SCH (09:00)
[2023-06-20] MEDS ORDERED: Bumetanide 1 MG TAB PO SCH (09:00)
[2023-06-20] MEDS ORDERED: Sertraline 100 MG TAB PO SCH (09:00)
[2023-06-20] MEDS ORDERED: Aspirin Chewable 81 MG TAB PO SCH (09:00)
[2023-06-20] MEDS ORDERED: Folic Acid 1 MG TAB PO SCH (09:00)
[2023-06-20 16:11] VITALS: BP 126/85; TEMP 98.5
[2023-06-20] MEDS ORDERED: Atorvastatin Calcium 40 MG TAB PO SCH (21:00)
== END 2023-06-20 18:45 | disposition home or self-care (01) ==
LOC: SUATTDRO 15:37 → ERS 15:37 → 2SW 18:06
PROVIDERS: ADMIT Family Medicine; ATTEND Internal Medicine
DX: R55 Syncope and collapse (principal); I25.10 Atherosclerotic heart disease of native coronary artery without angina pectoris; R07.9 Chest pain, unspecified; J45.909 Unspecified asthma, uncomplicated; I11.0 Hypertensive heart disease with heart failure; I50.42 Chronic combined systolic (congestive) and diastolic (congestive) heart failure; R94.6 Abnormal results of thyroid function studies; F19.90 Other psychoactive substance use, unspecified, uncomplicated; Z95.810 Presence of automatic (implantable) cardiac defibrillator; Z79.82 Long term (current) use of aspirin; Z79.899 Other long term (current) drug therapy; Z79.01 Long term (current) use of anticoagulants; Z91.018 Allergy to other foods; Z88.8 Allergy status to other drugs, medicaments and biological substances; Z91.011 Allergy to milk products; Z87.891 Personal history of nicotine dependence; Z95.0 Presence of cardiac pacemaker
CPT/HCPCS: 71045; 80048; 80053; 80061; 80076; 80306; 82553; 83036; 83735; 83880; 84439; 84443; 84484 ×2; 85025 ×2; 93005; 97116; 99285; G0378 ×3; 36415; J7050

== ENCOUNTER 2023-06-20 23:22 | Inpatient (IN) | payer OTHER ==
[2023-06-20] MEDS ORDERED: Aspirin Chewable 81 MG TAB ONE (23:32)
[2023-06-20 23:40] LABS: #Basophils 0.1 thou/uL (0.0-0.2); #Eosinphils 0.2 thou/uL (0.0-0.7); #Monocytes 0.6 thou/uL (0.11-0.59); #Neutrophils 5.4 thou/uL (1.40-6.50); %Basophils 0.8 % (0.0-1.0); %Eosinophils 2.1 % (0.0-10.0); %Lymphocytes 32.9 % (21.0-51.0); %Monocytes 6.4 % (0.0-10.0); %Neutrophils 57.6 % (42.0-75.0); Hematocrit 46.2 % (42.0-52.0); Mean Corpuscular HGB CONC 32.5 g/dL (32.0-36.0); Mean Corpuscular Hemoglobin 33.9 pg (27.0-31.0); Mean Corpuscular Volume 104.3 fl (78.0-98.0); Mean Platelet Volume 10.7 fL (7.4-10.4); Platelet Count 248 10x3/uL (130-400); RBC Distribution Width 11.7 % (11.5-14.5); Red Blood Cell (RBC) Count 4.43 mill/uL (4.70-6.10); White Blood Cell (WBC) Count 9.4 10x3/uL (4.8-10.8)
[2023-06-21 00:01] LABS: ALT (SGPT) 10 U/L (8-55); AST (SGOT) 18 U/L (5-34); Albumin 4.2 g/dL (3.5-5.0); Alkaline Phosphatase 82 U/L (40-110); Anion Gap 19 mmol/L (10-20); BUN (Urea Nitrogen) 19 mg/dL (8.4-25.7); Calc. Creatinine Clearance 0 mL/min (70-130); Calcium 9.8 mg/dL (7.8-10.44); Carbon Dioxide 16 mmol/L (22-29); Chloride 106 mmol/L (98-107); Estimated GFR 54; Globulin 3.5 g/dL (2.4-3.5); Glucose 131 mg/dL (70-105); Potassium 4.6 mmol/L (3.5-5.1); Protein, Total 7.7 g/dL (6.0-8.3); Sodium 136 mmol/L (136-145)
[2023-06-21] MEDS ORDERED: Aspirin Chewable 81 MG TAB ONE (00:07)
[2023-06-21 02:41] LABS: Troponin I 0.033 ng/mL (< 0.028)
[2023-06-21] MEDS ORDERED: Senokot S 8.6-50 MG TAB PO PRN (02:49)
[2023-06-21] MEDS ORDERED: Acetaminophen 325 MG TAB PO PRN (02:49)
[2023-06-21] MEDS ORDERED: Ondansetron ODT 4 MG TAB PO PRN (02:49)
[2023-06-21] MEDS ORDERED: Dextrose 5%-Lactated Ringers 1,000 ML IV SCH (03:00)
[2023-06-21] MEDS ORDERED: Ipratropium/Albuterol 3 ML NEB NEB PRN (03:32)
[2023-06-21] MEDS ORDERED: Lactated Ringer's 1,000 ML IV SCH (03:45)
[2023-06-21 05:35] LABS: #Basophils 0.1 thou/uL (0.0-0.2); #Eosinphils 0.1 thou/uL (0.0-0.7); #Monocytes 0.4 thou/uL (0.11-0.59); #Neutrophils 5.7 thou/uL (1.40-6.50); %Basophils 0.6 % (0.0-1.0); %Eosinophils 0.7 % (0.0-10.0); %Lymphocytes 27.5 % (21.0-51.0); %Monocytes 5.1 % (0.0-10.0); %Neutrophils 65.9 % (42.0-75.0); Hematocrit 42.6 % (42.0-52.0); Hemoglobin 13.7 g/dL (14.0-18.0); Mean Corpuscular HGB CONC 32.2 g/dL (32.0-36.0); Mean Corpuscular Hemoglobin 33.4 pg (27.0-31.0); Mean Corpuscular Volume 103.9 fl (78.0-98.0); Mean Platelet Volume 10.4 fL (7.4-10.4); Platelet Count 175 10x3/uL (130-400); RBC Distribution Width 11.8 % (11.5-14.5); White Blood Cell (WBC) Count 8.6 10x3/uL (4.8-10.8)
[2023-06-21 05:46] LABS: Amphetamine Not Detected (NotDetected); Barbiturates Screen Not Detected (NotDetected); Benzodiazepine Screen Not Detected (NotDetected); Cocaine Metabolite Screen Detected (NotDetected); Methadone Not Detected (NotDetected); Methamphetamine Not Detected (NotDetected); Opiate Screen Not Detected (NotDetected); Oxycodone Screen Not Detected (NotDetected); Phencyclidine (PCP) Not Detected (NotDetected); THC/Cannabinoid Screen Detected (NotDetected); Tricyclic Screen Not Detected (NotDetected)
[2023-06-21 06:06] LABS: Anion Gap 13 mmol/L (10-20); BUN (Urea Nitrogen) 17 mg/dL (8.4-25.7); Calc. Creatinine Clearance 54 mL/min (70-130); Calcium 9.3 mg/dL (7.8-10.44); Carbon Dioxide 19 mmol/L (22-29); Chloride 107 mmol/L (98-107); Estimated GFR 78; Glucose 108 mg/dL (70-105); Potassium 4.4 mmol/L (3.5-5.1); Sodium 135 mmol/L (136-145)
[2023-06-21 06:08] LABS: Troponin I 0.032 ng/mL (< 0.028)
[2023-06-21] MEDS: Famotidine 20 MG TAB PO SCH ×2 (08:27→20:27)
[2023-06-21] MEDS ORDERED: Famotidine/PF 20 mg/2ml Vial SLOW IVP SCH (09:00)
[2023-06-21] MEDS ORDERED: Aspirin 81 mg Enteric Coated Tablet PO SCH (09:00)
[2023-06-21] MEDS ORDERED: Atorvastatin Calcium 40 MG TAB PO SCH (21:00)
[2023-06-22 08:30] VITALS: BMI 17.7
[2023-06-22] MEDS ORDERED: Regadenoson 0.4 MG/5 ML SYRINGE ONE (09:17)
[2023-06-22] MEDS: Apixaban 5 MG TAB PO SCH ×2 (10:15→21:23)
[2023-06-22] MEDS: Sacubitril 49 MG/Valsartan 51 MG TABLET PO SCH ×2 (10:15→21:23)
[2023-06-22] MEDS: Famotidine 20 MG TAB PO SCH ×2 (10:15→21:23)
[2023-06-22 12:48] LABS: Anion Gap 11 mmol/L (10-20); BUN (Urea Nitrogen) 13 mg/dL (8.4-25.7); Calc. Creatinine Clearance 66 mL/min (70-130); Calcium 9.5 mg/dL (7.8-10.44); Carbon Dioxide 24 mmol/L (22-29); Chloride 105 mmol/L (98-107); Estimated GFR 96; Glucose 71 mg/dL (70-105); Potassium 4.3 mmol/L (3.5-5.1); Sodium 136 mmol/L (136-145)
[2023-06-22] MEDS: Carvedilol 6.25 MG TAB PO SCH (16:50)
[2023-06-23] MEDS: Carvedilol 6.25 MG TAB PO SCH ×2 (05:48→17:01)
[2023-06-23] MEDS: Sacubitril 49 MG/Valsartan 51 MG TABLET PO SCH ×2 (05:48→20:50)
[2023-06-23] MEDS: Sodium Chloride 0.9% 1,000 ML IV SCH ×2 (05:48→15:56)
[2023-06-23] MEDS: Famotidine 20 MG TAB PO SCH ×2 (05:48→20:50)
[2023-06-23] MEDS ORDERED: Nitroglycerin 50 MG/250 ML BOT 250 ML ONE (06:58)
[2023-06-23] MEDS ORDERED: Heparin 10,000 UNITS/ 10 ML VIAL ONE (06:58)
[2023-06-23] MEDS ORDERED: Lidocaine 1% (PF) 30 ML VIAL ONE (06:58)
[2023-06-23] MEDS ORDERED: Midazolam HCl 2 mg/2 ml Vial ONE (06:59)
[2023-06-23] MEDS ORDERED: fentaNYL 50 mcg/mL 1 mL Vial ONE (06:59)
[2023-06-23] MEDS ORDERED: Verapamil 5 MG/2 ML VIAL ONE (07:26)
[2023-06-23] MEDS ORDERED: Atropine Sulfate 1 mg/10 ml Syringe ONE (07:27)
[2023-06-23] MEDS: Apixaban 5 MG TAB PO SCH ×2 (09:47→20:50)
[2023-06-23] MEDS ORDERED: Nitroglycerin 0.4 MG TAB (25 Tab Bottle) SL PRN (10:09)
[2023-06-23] MEDS ORDERED: Sodium Chloride 0.9% 200 ML IV PRN (10:09)
[2023-06-23] MEDS ORDERED: Acetaminophen/Codeine 30-300mg Tablet PO PRN ×2 (10:09)
[2023-06-23 17:02] VITALS: BP 130/90
[2023-06-24] MEDS: Sodium Chloride 0.9% 1,000 ML IV SCH (00:04)
[2023-06-24 04:10] LABS: Anion Gap 9 mmol/L (10-20); BUN (Urea Nitrogen) 23 mg/dL (8.4-25.7); Calc. Creatinine Clearance 67 mL/min (70-130); Calcium 9.1 mg/dL (7.8-10.44); Carbon Dioxide 24 mmol/L (22-29); Chloride 106 mmol/L (98-107); Estimated GFR 93; Glucose 93 mg/dL (70-105); Potassium 4.3 mmol/L (3.5-5.1); Sodium 135 mmol/L (136-145)
[2023-06-24] MEDS: Sacubitril 49 MG/Valsartan 51 MG TABLET PO SCH (08:36)
[2023-06-24] MEDS: Carvedilol 6.25 MG TAB PO SCH (08:36)
[2023-06-24] MEDS: Famotidine 20 MG TAB PO SCH (08:37)
[2023-06-24] MEDS: Apixaban 5 MG TAB PO SCH (08:37)
[2023-06-24 11:59] VITALS: TEMP 98.4
== END 2023-06-24 12:35 | disposition home or self-care (01) | DRG 287 ==
LOC: ERS 23:22 → IMCU/EMU 06-21 01:38
PROVIDERS: ADMIT Student in an Organized Health Care Education/Training Program; ATTEND Internal Medicine Critical Care Medicine
PROC: 4A023N7 Measurement of Cardiac Sampling and Pressure, Left Heart, Percutaneous Approach (ICD-10-PCS; principal; 2023-06-23)
PROC: B2161ZZ Fluoroscopy of Right and Left Heart using Low Osmolar Contrast (ICD-10-PCS; 2023-06-23)
PROC: B2111ZZ Fluoroscopy of Multiple Coronary Arteries using Low Osmolar Contrast (ICD-10-PCS; 2023-06-23)
DX: R00.1 Bradycardia, unspecified (principal); I13.0 Hypertensive heart and chronic kidney disease with heart failure and stage 1 through stage 4 chronic kidney disease, or unspecified chronic kidney disease; N17.9 Acute kidney failure, unspecified; F14.20 Cocaine dependence, uncomplicated; I50.22 Chronic systolic (congestive) heart failure; I95.9 Hypotension, unspecified; I42.9 Cardiomyopathy, unspecified; J44.9 Chronic obstructive pulmonary disease, unspecified; I25.10 Atherosclerotic heart disease of native coronary artery without angina pectoris; N18.9 Chronic kidney disease, unspecified; R55 Syncope and collapse; E86.0 Dehydration; I25.89 Other forms of chronic ischemic heart disease; Z91.018 Allergy to other foods; Z88.8 Allergy status to other drugs, medicaments and biological substances; Z79.82 Long term (current) use of aspirin; Z79.01 Long term (current) use of anticoagulants; Z79.899 Other long term (current) drug therapy; Z95.0 Presence of cardiac pacemaker; Z87.891 Personal history of nicotine dependence; Z82.49 Family history of ischemic heart disease and other diseases of the circulatory system; Z91.011 Allergy to milk products
CPT/HCPCS: 36415; 71045; 78452; 80048; 80053; 80061; 80076; 80306; 82553; 83036; 83735; 83880; 84439; 84443; 84484; 85025; 93005; 93017; 93458; A9500; C1769; C1887; C1894; G0378; J0461; J1644; J2001; J2250; J2785; J3010; J7050; J7120

== ENCOUNTER 2023-07-17 20:49 | Observation (INO) | payer MEDICAID, MEDICARE, OTHER ==
[2023-07-17 21:44] LABS: #Eosinphils 0.2 thou/uL (0.0-0.7); #Monocytes 0.5 thou/uL (0.11-0.59); #Neutrophils 3.4 thou/uL (1.40-6.50); %Basophils 0.5 % (0.0-1.0); %Eosinophils 2.8 % (0.0-10.0); %Lymphocytes 49.6 % (21.0-51.0); %Monocytes 6.4 % (0.0-10.0); %Neutrophils 40.6 % (42.0-75.0); Hematocrit 41.5 % (42.0-52.0); Hemoglobin 13.7 g/dL (14.0-18.0); Mean Corpuscular Hemoglobin 33.3 pg (27.0-31.0); Mean Platelet Volume 11.3 fL (7.4-10.4); Platelet Count 170 10x3/uL (130-400); RBC Distribution Width 12.1 % (11.5-14.5); Red Blood Cell (RBC) Count 4.11 mill/uL (4.70-6.10); White Blood Cell (WBC) Count 8.4 10x3/uL (4.8-10.8)
[2023-07-17 22:08] LABS: ALT (SGPT) 33 U/L (8-55); AST (SGOT) 37 U/L (5-34); Albumin 4.2 g/dL (3.5-5.0); Alkaline Phosphatase 84 U/L (40-110); Anion Gap 14 mmol/L (10-20); BUN (Urea Nitrogen) 13 mg/dL (8.4-25.7); Bilirubin, Total 0.9 mg/dL (0.2-1.2); Calc. Creatinine Clearance 0 mL/min (70-130); Calcium 9.7 mg/dL (7.8-10.44); Carbon Dioxide 17 mmol/L (22-29); Chloride 115 mmol/L (98-107); Estimated GFR 70; Globulin 3.2 g/dL (2.4-3.5); Glucose 68 mg/dL (70-105); Protein, Total 7.4 g/dL (6.0-8.3); Sodium 142 mmol/L (136-145)
[2023-07-17 22:09] LABS: Troponin I 0.047 ng/mL (< 0.028)
[2023-07-17] MEDS ORDERED: Aspirin Chewable 81 MG TAB ONE (23:13)
[2023-07-18 01:57] LABS: Troponin I 0.031 ng/mL (< 0.028)
[2023-07-18] MEDS ORDERED: Ondansetron ODT 4 MG TAB PO PRN (03:26)
[2023-07-18] MEDS ORDERED: Senokot S 8.6-50 MG TAB PO PRN (03:26)
[2023-07-18] MEDS ORDERED: Acetaminophen 325 MG TAB PO PRN (03:26)
[2023-07-18 05:24] VITALS: BMI 18.5
[2023-07-18 06:10] LABS: Troponin I 0.034 ng/mL (< 0.028)
[2023-07-18] MEDS: Carvedilol 6.25 MG TAB PO SCH ×2 (07:39→16:27)
[2023-07-18] MEDS: Famotidine 20 MG TAB PO SCH ×2 (08:49→20:28)
[2023-07-18] MEDS: Aspirin 81 mg Enteric Coated Tablet PO SCH (08:49)
[2023-07-18] MEDS: Sacubitril 49 MG/Valsartan 51 MG TABLET PO SCH ×2 (08:49→20:28)
[2023-07-18 08:53] LABS: Troponin I 0.025 ng/mL (< 0.028)
[2023-07-18] MEDS ORDERED: Nitroglycerin 0.4 MG TAB (25 Tab Bottle) SL PRN (10:17)
[2023-07-18 18:59] LABS: Amphetamine Not Detected (NotDetected); Barbiturates Screen Not Detected (NotDetected); Benzodiazepine Screen Not Detected (NotDetected); Cocaine Metabolite Screen Detected (NotDetected); Methadone Not Detected (NotDetected); Methamphetamine Not Detected (NotDetected); Opiate Screen Not Detected (NotDetected); Oxycodone Screen Not Detected (NotDetected); Phencyclidine (PCP) Not Detected (NotDetected); THC/Cannabinoid Screen Detected (NotDetected); Tricyclic Screen Not Detected (NotDetected)
[2023-07-18] MEDS ORDERED: Atorvastatin Calcium 40 MG TAB PO SCH (21:00)
[2023-07-19 05:35] LABS: #Basophils 0.1 thou/uL (0.0-0.2); #Eosinphils 0.3 thou/uL (0.0-0.7); #Monocytes 0.5 thou/uL (0.11-0.59); #Neutrophils 3.4 thou/uL (1.40-6.50); %Basophils 0.7 % (0.0-1.0); %Eosinophils 3.4 % (0.0-10.0); %Lymphocytes 48.3 % (21.0-51.0); %Monocytes 6.1 % (0.0-10.0); %Neutrophils 41.3 % (42.0-75.0); Hematocrit 40.5 % (42.0-52.0); Mean Corpuscular HGB CONC 32.1 g/dL (32.0-36.0); Mean Corpuscular Hemoglobin 33.3 pg (27.0-31.0); Mean Corpuscular Volume 103.8 fl (78.0-98.0); Mean Platelet Volume 10.6 fL (7.4-10.4); Platelet Count 161 10x3/uL (130-400); RBC Distribution Width 11.9 % (11.5-14.5); White Blood Cell (WBC) Count 8.3 10x3/uL (4.8-10.8)
[2023-07-19 06:03] LABS: Anion Gap 12 mmol/L (10-20); BUN (Urea Nitrogen) 12 mg/dL (8.4-25.7); Calc. Creatinine Clearance 76 mL/min (70-130); Calcium 8.8 mg/dL (7.8-10.44); Carbon Dioxide 22 mmol/L (22-29); Chloride 106 mmol/L (98-107); Estimated GFR 101; Glucose 97 mg/dL (70-105); Potassium 3.8 mmol/L (3.5-5.1); Sodium 136 mmol/L (136-145)
[2023-07-19] MEDS: Carvedilol 6.25 MG TAB PO SCH (08:55)
[2023-07-19] MEDS: Sacubitril 49 MG/Valsartan 51 MG TABLET PO SCH (08:56)
[2023-07-19] MEDS: Famotidine 20 MG TAB PO SCH (08:56)
[2023-07-19] MEDS: Aspirin 81 mg Enteric Coated Tablet PO SCH (08:56)
[2023-07-19 12:24] VITALS: BP 127/66; TEMP 97.6
== END 2023-07-19 13:42 | disposition home or self-care (01) ==
LOC: ERS 20:49 → 2SW 07-18 03:59
PROVIDERS: ADMIT Student in an Organized Health Care Education/Training Program; ATTEND Emergency Medicine
DX: R07.9 Chest pain, unspecified (principal); I13.0 Hypertensive heart and chronic kidney disease with heart failure and stage 1 through stage 4 chronic kidney disease, or unspecified chronic kidney disease; I50.9 Heart failure, unspecified; N18.9 Chronic kidney disease, unspecified; J44.9 Chronic obstructive pulmonary disease, unspecified; I10 Essential (primary) hypertension; I25.10 Atherosclerotic heart disease of native coronary artery without angina pectoris; F17.200 Nicotine dependence, unspecified, uncomplicated; Z91.018 Allergy to other foods; Z91.011 Allergy to milk products; Z79.82 Long term (current) use of aspirin; Z95.0 Presence of cardiac pacemaker; Z79.899 Other long term (current) drug therapy
CPT/HCPCS: 36415; 71045; 80048; 80053; 80306; 83690; 83735; 83880; 84484; 85025; 85379; 93005

== ENCOUNTER 2023-07-19 22:19 | Emergency (ER) | payer OTHER ==
[2023-07-19 23:31] LABS: #Basophils 0.1 thou/uL (0.0-0.2); #Eosinphils 0.2 thou/uL (0.0-0.7); #Monocytes 0.5 thou/uL (0.11-0.59); #Neutrophils 4.1 thou/uL (1.40-6.50); %Basophils 0.7 % (0.0-1.0); %Eosinophils 2.6 % (0.0-10.0); %Lymphocytes 42.7 % (21.0-51.0); %Monocytes 6.1 % (0.0-10.0); %Neutrophils 47.8 % (42.0-75.0); Hemoglobin 13.6 g/dL (14.0-18.0); Mean Corpuscular HGB CONC 33.2 g/dL (32.0-36.0); Mean Corpuscular Hemoglobin 33.6 pg (27.0-31.0); Mean Corpuscular Volume 101.2 fl (78.0-98.0); Mean Platelet Volume 11.1 fL (7.4-10.4); Platelet Count 172 10x3/uL (130-400); RBC Distribution Width 11.8 % (11.5-14.5); Red Blood Cell (RBC) Count 4.05 mill/uL (4.70-6.10); White Blood Cell (WBC) Count 8.5 10x3/uL (4.8-10.8)
[2023-07-19 23:54] LABS: ALT (SGPT) 19 U/L (8-55); AST (SGOT) 21 U/L (5-34); Albumin 3.8 g/dL (3.5-5.0); Alkaline Phosphatase 77 U/L (40-110); Anion Gap 13 mmol/L (10-20); BUN (Urea Nitrogen) 12 mg/dL (8.4-25.7); Calc. Creatinine Clearance 0 mL/min (70-130); Calcium 9.1 mg/dL (7.8-10.44); Carbon Dioxide 21 mmol/L (22-29); Chloride 109 mmol/L (98-107); Estimated GFR 91; Globulin 2.7 g/dL (2.4-3.5); Glucose 72 mg/dL (70-105); Lipase 11 U/L (8-78); Potassium 4.3 mmol/L (3.5-5.1); Protein, Total 6.5 g/dL (6.0-8.3); Sodium 139 mmol/L (136-145)
[2023-07-20 00:21] LABS: Troponin I 0.027 ng/mL (< 0.028)
== END 2023-07-20 02:19 | disposition home or self-care (01) ==
LOC: ERS 22:19
DX: R06.00 Dyspnea, unspecified (principal); J44.9 Chronic obstructive pulmonary disease, unspecified; I11.0 Hypertensive heart disease with heart failure; I50.9 Heart failure, unspecified; Z79.899 Other long term (current) drug therapy; Z79.82 Long term (current) use of aspirin; Z79.01 Long term (current) use of anticoagulants
CPT/HCPCS: 36415; 71045; 83690; 83735; 83880; 84484; 93005

== ENCOUNTER 2023-09-20 19:32 | Observation (INO) | payer MEDICAID, MEDICARE, OTHER ==
[~2023-09-20 19:32] MED LIST changes: +Iopamidol 370 76% 100 ML VIAL ONE; -Iopamidol-370 76% 500 ML 1 ML ONE
[2023-09-20] MEDS ORDERED: Morphine 4 MG/ML VIAL ONE (20:13)
[2023-09-20] MEDS ORDERED: Ondansetron PF 4 MG/2 ML Vial ONE (20:13)
[2023-09-20] MEDS ORDERED: Aspirin Chewable 81 MG TAB ONE (20:14)
[2023-09-20 20:33] LABS: #Basophils 0.1 thou/uL (0.0-0.2); #Eosinphils 0.2 thou/uL (0.0-0.7); #Monocytes 0.5 thou/uL (0.11-0.59); %Basophils 0.6 % (0.0-1.0); %Lymphocytes 40.1 % (21.0-51.0); %Monocytes 6.6 % (0.0-10.0); %Neutrophils 50.4 % (42.0-75.0); Hematocrit 37.3 % (42.0-52.0); Hemoglobin 11.9 g/dL (14.0-18.0); Mean Corpuscular HGB CONC 31.9 g/dL (32.0-36.0); Mean Corpuscular Hemoglobin 34.2 pg (27.0-31.0); Mean Corpuscular Volume 107.2 fl (78.0-98.0); Mean Platelet Volume 11.6 fL (7.4-10.4); Platelet Count 132 10x3/uL (130-400); RBC Distribution Width 12.3 % (11.5-14.5); Red Blood Cell (RBC) Count 3.48 mill/uL (4.70-6.10)
[2023-09-20 20:56] LABS: ALT (SGPT) 8 U/L (8-55); AST (SGOT) 15 U/L (5-34); Albumin 4.2 g/dL (3.5-5.0); Alkaline Phosphatase 69 U/L (40-110); Anion Gap 14 mmol/L (10-20); BUN (Urea Nitrogen) 13 mg/dL (8.4-25.7); Bilirubin, Total 1.2 mg/dL (0.2-1.2); Calc. Creatinine Clearance 0 mL/min (70-130); Calcium 9.2 mg/dL (7.8-10.44); Carbon Dioxide 22 mmol/L (22-29); Chloride 111 mmol/L (98-107); Estimated GFR 94; Glucose 93 mg/dL (70-105); Lipase 10 U/L (8-78); Protein, Total 6.2 g/dL (6.0-8.3); Sodium 143 mmol/L (136-145)
[2023-09-20 21:01] LABS: Troponin I 0.055 ng/mL (< 0.028)
[2023-09-20 23:48] VITALS: BMI 18.8
[2023-09-21] MEDS ORDERED: Nitroglycerin 2% Ointment 1 INCH/1 GM Packet TOP SCH ×3 (01:31→06:00)
[2023-09-21] MEDS ORDERED: Ipratropium/Albuterol 3 ML NEB NEB PRN (02:34)
[2023-09-21] MEDS ORDERED: Ketorolac Tromethamine 30 MG/ML VIAL IVP SCH (02:45)
[2023-09-21 02:53] LABS: Amphetamine Not Detected (NotDetected); Barbiturates Screen Not Detected (NotDetected); Benzodiazepine Screen Not Detected (NotDetected); Cocaine Metabolite Screen Detected (NotDetected); Methadone Not Detected (NotDetected); Methamphetamine Not Detected (NotDetected); Opiate Screen Detected (NotDetected); Oxycodone Screen Not Detected (NotDetected); Phencyclidine (PCP) Not Detected (NotDetected); THC/Cannabinoid Screen Detected (NotDetected); Tricyclic Screen Not Detected (NotDetected)
[2023-09-21 04:48] LABS: #Basophils 0.1 thou/uL (0.0-0.2); #Eosinphils 0.2 thou/uL (0.0-0.7); #Monocytes 0.5 thou/uL (0.11-0.59); #Neutrophils 2.7 thou/uL (1.40-6.50); %Basophils 0.8 % (0.0-1.0); %Eosinophils 2.8 % (0.0-10.0); %Lymphocytes 43.6 % (21.0-51.0); %Monocytes 7.7 % (0.0-10.0); %Neutrophils 44.9 % (42.0-75.0); Hemoglobin 11.8 g/dL (14.0-18.0); Mean Corpuscular HGB CONC 31.9 g/dL (32.0-36.0); Mean Corpuscular Hemoglobin 33.7 pg (27.0-31.0); Mean Corpuscular Volume 105.7 fl (78.0-98.0); Platelet Count 148 10x3/uL (130-400); RBC Distribution Width 12.3 % (11.5-14.5); White Blood Cell (WBC) Count 6.1 10x3/uL (4.8-10.8)
[2023-09-21 05:18] LABS: Troponin I 0.071 ng/mL (< 0.028)
[2023-09-21 05:22] LABS: ALT (SGPT) 9 U/L (8-55); AST (SGOT) 14 U/L (5-34); Albumin 3.7 g/dL (3.5-5.0); Alkaline Phosphatase 65 U/L (40-110); Anion Gap 12 mmol/L (10-20); BUN (Urea Nitrogen) 11 mg/dL (8.4-25.7); Bilirubin, Total 1.9 mg/dL (0.2-1.2); Calc. Creatinine Clearance 72 mL/min (70-130); Calcium 8.9 mg/dL (7.8-10.44); Carbon Dioxide 25 mmol/L (22-29); Chloride 109 mmol/L (98-107); Estimated GFR 98; Globulin 2.2 g/dL (2.4-3.5); Glucose 93 mg/dL (70-105); Protein, Total 5.9 g/dL (6.0-8.3); Sodium 142 mmol/L (136-145)
[2023-09-21] MEDS: Mometasone 200 MCG/Formoterol 5 MCG 120 PUFF INHALER INH SCH ×2 (07:13→20:07)
[2023-09-21 09:22] LABS: Troponin I 0.072 ng/mL (< 0.028)
[2023-09-21] MEDS: Aspirin 81 mg Enteric Coated Tablet PO SCH (09:32)
[2023-09-21] MEDS: Acetaminophen 325 MG TAB PO PRN (09:32)
[2023-09-21] MEDS: Sacubitril 49 MG/Valsartan 51 MG TABLET PO SCH ×2 (09:32→20:07)
[2023-09-21] MEDS: Nitroglycerin 2% Ointment 1 INCH/1 GM Packet TOP SCH ×2 (09:33→18:07)
[2023-09-21] MEDS ORDERED: Apixaban 5 MG TAB PO SCH (10:15)
[2023-09-21] MEDS: Apixaban 5 MG TAB PO SCH (20:07)
[2023-09-21] MEDS ORDERED: Atorvastatin Calcium 40 MG TAB PO SCH (21:00)
[2023-09-22] MEDS: Nitroglycerin 2% Ointment 1 INCH/1 GM Packet TOP SCH ×2 (02:43→08:56)
[2023-09-22] MEDS: Mometasone 200 MCG/Formoterol 5 MCG 120 PUFF INHALER INH SCH (07:07)
[2023-09-22] MEDS ORDERED: Nitroglycerin 2% Ointment 1 INCH/1 GM Packet ONE (08:10)
[2023-09-22] MEDS: Aspirin 81 mg Enteric Coated Tablet PO SCH (08:55)
[2023-09-22] MEDS: Sacubitril 49 MG/Valsartan 51 MG TABLET PO SCH (08:55)
[2023-09-22] MEDS: Apixaban 5 MG TAB PO SCH (08:55)
[2023-09-22] MEDS: Acetaminophen 325 MG TAB PO PRN (10:46)
[2023-09-22] MEDS ORDERED: traMADol HCl 50 MG TAB PO PRN (10:53)
[2023-09-22] MEDS ORDERED: Morphine 2 MG/ML VIAL SLOW IVP SCH (11:00)
[2023-09-22 13:42] VITALS: BP 146/70; TEMP 97.9
== END 2023-09-22 14:56 | disposition home or self-care (01) ==
LOC: ERS 19:32 → 2NO 22:21
PROVIDERS: ADMIT Internal Medicine; ATTEND Internal Medicine
DX: R07.9 Chest pain, unspecified (principal); I82.B12 Acute embolism and thrombosis of left subclavian vein; I08.1 Rheumatic disorders of both mitral and tricuspid valves; I13.0 Hypertensive heart and chronic kidney disease with heart failure and stage 1 through stage 4 chronic kidney disease, or unspecified chronic kidney disease; I50.20 Unspecified systolic (congestive) heart failure; N18.9 Chronic kidney disease, unspecified; I42.9 Cardiomyopathy, unspecified; J44.9 Chronic obstructive pulmonary disease, unspecified; I25.10 Atherosclerotic heart disease of native coronary artery without angina pectoris; Z91.011 Allergy to milk products; Z91.018 Allergy to other foods; Z88.8 Allergy status to other drugs, medicaments and biological substances; Z95.0 Presence of cardiac pacemaker
CPT/HCPCS: 36415; 71045; 71275; 74174; 80053; 80306; 82607; 83690; 83880; 84145; 84484; 85025; 93005; 93306; 96374; 96375; 96376; G0378; J1885; J2270; J2272; J2405; Q9967

== ENCOUNTER 2023-09-22 20:51 | Emergency (ER) | payer OTHER ==
[~2023-09-22 20:51] MED LIST changes: -Iopamidol 370 76% 100 ML VIAL ONE; +Iopamidol-370 76% 500 ML MDV (1 ML CHARGE) ONE
[2023-09-22 21:52] LABS: Hematocrit 44.8 % (42.0-52.0); Hemoglobin 14.7 g/dL (14.0-18.0); Mean Corpuscular HGB CONC 32.8 g/dL (32.0-36.0); Mean Corpuscular Hemoglobin 33.4 pg (27.0-31.0); Mean Corpuscular Volume 101.8 fl (78.0-98.0); Mean Platelet Volume 11.2 fL (7.4-10.4); Platelet Count 185 10x3/uL (130-400); RBC Distribution Width 11.6 % (11.5-14.5); White Blood Cell (WBC) Count 7.9 10x3/uL (4.8-10.8)
[2023-09-22 21:53] LABS: Delete Auto Diff?? YES; Manual Diff?? YES
[2023-09-22 22:13] LABS: CellaVision Operator ID LAB.MJL; Eosinophils 2 % (0-10); Lymphocytes 27 % (21-51); Macrocytosis SLIGHT = 6-15 cells HPF (0-5); Monocytes 4 % (0-10); Neutrophil 65 % (42-75); Platelet Adequacy Comment Platelets Normal; Reactive Lymphocytes 2 % (0-10); Total Cell Count 101
[2023-09-22] MEDS ORDERED: Acetaminophen 500 MG TAB ONE (22:19)
[2023-09-22 22:21] LABS: Troponin I 0.061 ng/mL (< 0.028)
[2023-09-22 22:26] LABS: ALT (SGPT) 10 U/L (8-55); AST (SGOT) 16 U/L (5-34); Albumin 4.5 g/dL (3.5-5.0); Alkaline Phosphatase 76 U/L (40-110); Anion Gap 14 mmol/L (10-20); BUN (Urea Nitrogen) 13 mg/dL (8.4-25.7); Calc. Creatinine Clearance 0 mL/min (70-130); Calcium 9.5 mg/dL (7.8-10.44); Carbon Dioxide 23 mmol/L (22-29); Chloride 106 mmol/L (98-107); Estimated GFR 86; Globulin 2.5 g/dL (2.4-3.5); Glucose 94 mg/dL (70-105); Potassium 4.5 mmol/L (3.5-5.1); Sodium 138 mmol/L (136-145)
[2023-09-22 22:57] LABS: Bilirubin, Total 1.8 mg/dL (0.2-1.2)
[2023-09-23 01:14] LABS: Troponin I 0.058 ng/mL (< 0.028)
== END 2023-09-23 02:09 | disposition home or self-care (01) ==
LOC: ERS 20:51
DX: R07.9 Chest pain, unspecified (principal); R79.89 Other specified abnormal findings of blood chemistry; I82.622 Acute embolism and thrombosis of deep veins of left upper extremity; I11.0 Hypertensive heart disease with heart failure; I50.9 Heart failure, unspecified; Z79.82 Long term (current) use of aspirin; Z79.899 Other long term (current) drug therapy; Z79.01 Long term (current) use of anticoagulants
CPT/HCPCS: 36415; 71275; 80053; 83880; 84484; 85025; 93005

== ENCOUNTER 2023-09-24 05:38 | Emergency (ER) | payer OTHER ==
[2023-09-24] MEDS ORDERED: Ketorolac Tromethamine 30 MG/ML VIAL ONE (05:53)
[2023-09-24 06:24] LABS: #Basophils 0.1 thou/uL (0.0-0.2); #Eosinphils 0.2 thou/uL (0.0-0.7); #Monocytes 0.6 thou/uL (0.11-0.59); #Neutrophils 4.6 thou/uL (1.40-6.50); %Basophils 0.6 % (0.0-1.0); %Eosinophils 2.6 % (0.0-10.0); %Lymphocytes 29.8 % (21.0-51.0); %Monocytes 7.4 % (0.0-10.0); %Neutrophils 59.5 % (42.0-75.0); Hematocrit 42.9 % (42.0-52.0); Hemoglobin 13.8 g/dL (14.0-18.0); Mean Corpuscular HGB CONC 32.2 g/dL (32.0-36.0); Mean Corpuscular Hemoglobin 33.7 pg (27.0-31.0); Mean Corpuscular Volume 104.6 fl (78.0-98.0); Mean Platelet Volume 11.1 fL (7.4-10.4); Platelet Count 167 10x3/uL (130-400); White Blood Cell (WBC) Count 7.7 10x3/uL (4.8-10.8)
[2023-09-24 06:41] LABS: Troponin I 0.039 ng/mL (< 0.028)
[2023-09-24 07:39] LABS: Alcohol Less than 10.0 mg/dL (Less than 10)
[2023-09-24 07:42] LABS: Acetaminophen Less than 10 mcg/mL (10.0-30.0); Salicylate Less than 8.0 mg/dL (15.0-30.0)
[2023-09-24 07:51] LABS: Albumin 4.2 g/dL (3.5-5.0)
[2023-09-24 07:52] LABS: Chloride 108 mmol/L (98-107)
[2023-09-24 07:53] LABS: Calcium 9.1 mg/dL (7.8-10.44); Potassium 4.1 mmol/L (3.5-5.1); Sodium 143 mmol/L (136-145)
[2023-09-24 07:54] LABS: Globulin 2.4 g/dL (2.4-3.5); Protein, Total 6.6 g/dL (6.0-8.3)
[2023-09-24 07:55] LABS: Anion Gap 13 mmol/L (10-20); Carbon Dioxide 26 mmol/L (22-29)
[2023-09-24 07:56] LABS: Bilirubin, Total 0.9 mg/dL (0.2-1.2)
[2023-09-24 07:57] LABS: Alkaline Phosphatase 70 U/L (40-110); Calc. Creatinine Clearance 0 mL/min (70-130); Estimated GFR 66
[2023-09-24 07:58] LABS: BUN (Urea Nitrogen) 19 mg/dL (8.4-25.7)
[2023-09-24 07:59] LABS: AST (SGOT) 14 U/L (5-34)
[2023-09-24 08:00] LABS: ALT (SGPT) 9 U/L (8-55); CK (CPK) 117 U/L (30-200); Lipase 31 U/L (8-78)
[2023-09-24 08:08] LABS: Glucose 51 mg/dL (70-105)
== END 2023-09-24 07:21 | disposition home or self-care (01) ==
LOC: ERS 05:38
DX: R07.89 Other chest pain (principal); I11.0 Hypertensive heart disease with heart failure; I50.9 Heart failure, unspecified; J44.9 Chronic obstructive pulmonary disease, unspecified; F17.210 Nicotine dependence, cigarettes, uncomplicated; Z79.01 Long term (current) use of anticoagulants; Z79.899 Other long term (current) drug therapy; Z79.82 Long term (current) use of aspirin
CPT/HCPCS: 36415; 80053; 80307; 82550; 83690; 83880; 84484; 85025; 93005; 96374; J1885

== ENCOUNTER 2023-09-28 18:48 | Emergency (ER) | payer OTHER ==
[2023-09-28 19:52] LABS: #Eosinphils 0.2 thou/uL (0.0-0.7); #Monocytes 0.6 thou/uL (0.11-0.59); #Neutrophils 4.4 thou/uL (1.40-6.50); %Basophils 0.4 % (0.0-1.0); %Lymphocytes 40.8 % (21.0-51.0); %Monocytes 6.5 % (0.0-10.0); %Neutrophils 50.1 % (42.0-75.0); Hematocrit 44.1 % (42.0-52.0); Hemoglobin 14.6 g/dL (14.0-18.0); Mean Corpuscular HGB CONC 33.1 g/dL (32.0-36.0); Mean Corpuscular Hemoglobin 33.9 pg (27.0-31.0); Mean Corpuscular Volume 102.3 fl (78.0-98.0); Mean Platelet Volume 11.7 fL (7.4-10.4); Platelet Count 198 10x3/uL (130-400); RBC Distribution Width 11.9 % (11.5-14.5); Red Blood Cell (RBC) Count 4.31 mill/uL (4.70-6.10); White Blood Cell (WBC) Count 8.9 10x3/uL (4.8-10.8)
[2023-09-28 20:20] LABS: Troponin I 0.042 ng/mL (< 0.028)
[2023-09-28 20:21] LABS: ALT (SGPT) 11 U/L (8-55); AST (SGOT) 23 U/L (5-34); Albumin 4.7 g/dL (3.5-5.0); Alkaline Phosphatase 79 U/L (40-110); Anion Gap 15 mmol/L (10-20); BUN (Urea Nitrogen) 22 mg/dL (8.4-25.7); Bilirubin, Total 1.6 mg/dL (0.2-1.2); Calc. Creatinine Clearance 0 mL/min (70-130); Calcium 9.4 mg/dL (7.8-10.44); Carbon Dioxide 27 mmol/L (22-29); Chloride 102 mmol/L (98-107); Estimated GFR 50; Globulin 2.9 g/dL (2.4-3.5); Glucose 91 mg/dL (70-105); Potassium 4.1 mmol/L (3.5-5.1); Protein, Total 7.6 g/dL (6.0-8.3); Sodium 140 mmol/L (136-145)
== END 2023-09-28 21:49 | disposition home or self-care (01) ==
LOC: ERS 18:48
DX: R53.1 Weakness (principal); R55 Syncope and collapse; I11.0 Hypertensive heart disease with heart failure; I50.9 Heart failure, unspecified; J44.9 Chronic obstructive pulmonary disease, unspecified; F17.210 Nicotine dependence, cigarettes, uncomplicated
CPT/HCPCS: 36416; 80053; 84484; 85025; 93005; 96360

== ENCOUNTER 2023-10-09 18:55 | Emergency (ER) | payer OTHER ==
[2023-10-09] MEDS ORDERED: Acetaminophen 500 MG TAB ONE (19:08)
[2023-10-09] MEDS ORDERED: Ondansetron ODT 4 MG TAB ONE (19:08)
[2023-10-09 19:37] LABS: #Basophils 0.1 thou/uL (0.0-0.2); #Eosinphils 0.3 thou/uL (0.0-0.7); #Monocytes 0.7 thou/uL (0.11-0.59); #Neutrophils 3.9 thou/uL (1.40-6.50); %Eosinophils 3.8 % (0.0-10.0); %Lymphocytes 38.5 % (21.0-51.0); %Neutrophils 47.6 % (42.0-75.0); Hematocrit 44.6 % (42.0-52.0); Hemoglobin 14.8 g/dL (14.0-18.0); Mean Corpuscular HGB CONC 33.2 g/dL (32.0-36.0); Mean Corpuscular Hemoglobin 33.9 pg (27.0-31.0); Mean Corpuscular Volume 102.3 fl (78.0-98.0); Mean Platelet Volume 10.7 fL (7.4-10.4); Platelet Count 197 10x3/uL (130-400); RBC Distribution Width 11.6 % (11.5-14.5); Red Blood Cell (RBC) Count 4.36 mill/uL (4.70-6.10); White Blood Cell (WBC) Count 8.2 10x3/uL (4.8-10.8)
[2023-10-09 20:03] LABS: ALT (SGPT) 13 U/L (8-55); AST (SGOT) 19 U/L (5-34); Albumin 4.4 g/dL (3.5-5.0); Alkaline Phosphatase 89 U/L (40-110); Anion Gap 15 mmol/L (10-20); BUN (Urea Nitrogen) 19 mg/dL (8.4-25.7); Calc. Creatinine Clearance 0 mL/min (70-130); Calcium 9.6 mg/dL (7.8-10.44); Carbon Dioxide 24 mmol/L (22-29); Chloride 106 mmol/L (98-107); Estimated GFR 72; Globulin 3.1 g/dL (2.4-3.5); Glucose 86 mg/dL (70-105); Protein, Total 7.5 g/dL (6.0-8.3); Sodium 141 mmol/L (136-145)
[2023-10-09 20:05] LABS: Troponin I 0.045 ng/mL (< 0.028)
== END 2023-10-09 21:13 | disposition home or self-care (01) ==
LOC: ERS 18:55
DX: R11.2 Nausea with vomiting, unspecified (principal); R51.9 Headache, unspecified; R53.1 Weakness; R19.7 Diarrhea, unspecified; I11.0 Hypertensive heart disease with heart failure; I50.9 Heart failure, unspecified; J45.909 Unspecified asthma, uncomplicated; F17.210 Nicotine dependence, cigarettes, uncomplicated; Z79.899 Other long term (current) drug therapy; Z79.82 Long term (current) use of aspirin; Z86.718 Personal history of other venous thrombosis and embolism; Z79.01 Long term (current) use of anticoagulants
CPT/HCPCS: 36415; 71045; 80053; 84484; 85025; 93005; Q0162

== ENCOUNTER 2023-10-29 19:23 | Emergency (ER) | payer OTHER ==
[2023-10-29 20:02] LABS: #Basophils 0.1 thou/uL (0.0-0.2); #Eosinphils 0.3 thou/uL (0.0-0.7); #Monocytes 0.7 thou/uL (0.11-0.59); #Neutrophils 6.3 thou/uL (1.40-6.50); %Basophils 0.6 % (0.0-1.0); %Eosinophils 2.5 % (0.0-10.0); %Lymphocytes 32.4 % (21.0-51.0); %Monocytes 6.5 % (0.0-10.0); %Neutrophils 57.7 % (42.0-75.0); Hematocrit 48.2 % (42.0-52.0); Hemoglobin 16.4 g/dL (14.0-18.0); Mean Platelet Volume 10.2 fL (7.4-10.4); Platelet Count 206 10x3/uL (130-400); RBC Distribution Width 11.5 % (11.5-14.5); Red Blood Cell (RBC) Count 4.97 mill/uL (4.70-6.10); White Blood Cell (WBC) Count 10.9 10x3/uL (4.8-10.8)
[2023-10-29] MEDS ORDERED: Acetaminophen 500 MG TAB ONE (20:03)
[2023-10-29] MEDS ORDERED: diphenhydrAMINE 50 MG/ML VIAL ONE (20:04)
[2023-10-29] MEDS ORDERED: Metoclopramide HCl 10 MG/2 ML VIAL ONE (20:04)
[2023-10-29 20:25] LABS: ALT (SGPT) 26 U/L (8-55); AST (SGOT) 27 U/L (5-34); Albumin 4.7 g/dL (3.5-5.0); Alkaline Phosphatase 102 U/L (40-110); Anion Gap 17 mmol/L (10-20); BUN (Urea Nitrogen) 49 mg/dL (8.4-25.7); Bilirubin, Total 1.6 mg/dL (0.2-1.2); Calc. Creatinine Clearance 0 mL/min (70-130); Calcium 9.5 mg/dL (7.8-10.44); Carbon Dioxide 21 mmol/L (22-29); Chloride 98 mmol/L (98-107); Estimated GFR 33; Globulin 3.7 g/dL (2.4-3.5); Glucose 88 mg/dL (70-105); Potassium 4.3 mmol/L (3.5-5.1); Protein, Total 8.4 g/dL (6.0-8.3); Sodium 132 mmol/L (136-145)
== END 2023-10-30 01:00 | disposition home or self-care (01) ==
LOC: ERS 19:23
DX: R42 Dizziness and giddiness (principal); N17.9 Acute kidney failure, unspecified; I13.0 Hypertensive heart and chronic kidney disease with heart failure and stage 1 through stage 4 chronic kidney disease, or unspecified chronic kidney disease; N18.9 Chronic kidney disease, unspecified; I50.20 Unspecified systolic (congestive) heart failure; J44.9 Chronic obstructive pulmonary disease, unspecified; F14.90 Cocaine use, unspecified, uncomplicated; F17.210 Nicotine dependence, cigarettes, uncomplicated; Z79.01 Long term (current) use of anticoagulants; Z95.0 Presence of cardiac pacemaker; Z86.718 Personal history of other venous thrombosis and embolism
CPT/HCPCS: 36415; 70450; 71045; 80053; 84484; 85025; 93005; 96361; 96365; 96375; J1200; J2765

== ENCOUNTER 2023-11-28 09:53 | Emergency (ER) | payer OTHER ==
[2023-11-28] MEDS ORDERED: Dexamethasone 4 MG TAB ONE (10:23)
[2023-11-28] MEDS ORDERED: Ipratropium/Albuterol 3 ML NEB ONE (10:23)
[2023-11-28 10:24] LABS: #Eosinphils 0.1 thou/uL (0.0-0.7); #Monocytes 0.7 thou/uL (0.11-0.59); #Neutrophils 2.4 thou/uL (1.40-6.50); %Basophils 0.7 % (0.0-1.0); %Eosinophils 2.2 % (0.0-10.0); %Lymphocytes 40.9 % (21.0-51.0); %Monocytes 12.2 % (0.0-10.0); %Neutrophils 43.8 % (42.0-75.0); Hematocrit 39.7 % (42.0-52.0); Hemoglobin 13.1 g/dL (14.0-18.0); Mean Corpuscular Hemoglobin 33.9 pg (27.0-31.0); Mean Corpuscular Volume 102.8 fl (78.0-98.0); Mean Platelet Volume 9.9 fL (7.4-10.4); Platelet Count 179 10x3/uL (130-400); RBC Distribution Width 12.8 % (11.5-14.5); Red Blood Cell (RBC) Count 3.86 mill/uL (4.70-6.10); White Blood Cell (WBC) Count 5.4 10x3/uL (4.8-10.8)
[2023-11-28 10:52] LABS: ALT (SGPT) 33 U/L (8-55); AST (SGOT) 29 U/L (5-34); Albumin 4.3 g/dL (3.5-5.0); Alkaline Phosphatase 86 U/L (40-110); Anion Gap 11 mmol/L (10-20); BUN (Urea Nitrogen) 10 mg/dL (8.4-25.7); Bilirubin, Total 1.6 mg/dL (0.2-1.2); Calc. Creatinine Clearance 0 mL/min (70-130); Calcium 9.2 mg/dL (7.8-10.44); Carbon Dioxide 25 mmol/L (22-29); Chloride 106 mmol/L (98-107); Estimated GFR 72; Globulin 2.9 g/dL (2.4-3.5); Glucose 109 mg/dL (70-105); Potassium 4.3 mmol/L (3.5-5.1); Protein, Total 7.2 g/dL (6.0-8.3); Sodium 138 mmol/L (136-145)
[2023-11-28 11:50] LABS: SARS-CoV-2 NAA Rapid Test Not Detected (NotDetected)
[2023-11-28 13:30] LABS: Troponin I 0.036 ng/mL (< 0.028)
== END 2023-11-28 14:36 | disposition home or self-care (01) ==
LOC: ERS 09:53
DX: J44.1 Chronic obstructive pulmonary disease with (acute) exacerbation (principal); I11.0 Hypertensive heart disease with heart failure; I50.9 Heart failure, unspecified; Z95.0 Presence of cardiac pacemaker; Z87.891 Personal history of nicotine dependence
CPT/HCPCS: 0240U; 71045; 80053; 83880; 84484 ×2; 85025; 93005; 36415; J7620; J8540

== ENCOUNTER 2023-12-14 14:23 | Emergency (ER) | payer OTHER, SELFPAY ==
[2023-12-14 14:41] LABS: #Basophils 0.1 thou/uL (0.0-0.2); #Eosinphils 0.1 thou/uL (0.0-0.7); #Monocytes 0.5 thou/uL (0.11-0.59); #Neutrophils 4.1 thou/uL (1.40-6.50); %Basophils 0.6 % (0.0-1.0); %Eosinophils 1.2 % (0.0-10.0); %Lymphocytes 42.1 % (21.0-51.0); %Monocytes 6.1 % (0.0-10.0); %Neutrophils 49.9 % (42.0-75.0); Hematocrit 39.3 % (42.0-52.0); Hemoglobin 13.2 g/dL (14.0-18.0); Mean Corpuscular HGB CONC 33.6 g/dL (32.0-36.0); Mean Corpuscular Hemoglobin 34.1 pg (27.0-31.0); Mean Corpuscular Volume 101.6 fl (78.0-98.0); Mean Platelet Volume 10.6 fL (7.4-10.4); Platelet Count 201 10x3/uL (130-400); RBC Distribution Width 12.1 % (11.5-14.5); Red Blood Cell (RBC) Count 3.87 mill/uL (4.70-6.10); White Blood Cell (WBC) Count 8.2 10x3/uL (4.8-10.8)
[2023-12-14 14:57] LABS: Acetaminophen Less than 10 mcg/mL (10.0-30.0); Alcohol 260.2 mg/dL (Less than 10); Lipase 168 U/L (8-78); Salicylate Less than 8.0 mg/dL (15.0-30.0)
[2023-12-14 15:22] LABS: ALT (SGPT) 19 U/L (8-55); AST (SGOT) 21 U/L (5-34); Alkaline Phosphatase 71 U/L (40-110); Anion Gap 17 mmol/L (10-20); BUN (Urea Nitrogen) 21 mg/dL (8.4-25.7); Calc. Creatinine Clearance 0 mL/min (70-130); Calcium 9.4 mg/dL (7.8-10.44); Carbon Dioxide 21 mmol/L (22-29); Chloride 109 mmol/L (98-107); Estimated GFR 47; Globulin 2.6 g/dL (2.4-3.5); Glucose 77 mg/dL (70-105); Potassium 3.5 mmol/L (3.5-5.1); Protein, Total 6.6 g/dL (6.0-8.3); Sodium 143 mmol/L (136-145)
[2023-12-14 16:50] LABS: Bilirubin Negative (Negative); Blood, Urine 1+ (Negative); CAUTI Indications for Culture Alt mental st,lethar; Clarity Clear (Clear); Glucose, Urine (Dipstick) Normal (Negative); Ketone, Urine Negative (Negative); Leukocyte Negative Leu/uL (Negative); Nitrite Negative (Negative); Protein, Urine (Dipstick) 10 mg/dL (Neg-Trace); RBC/HPF 0-3 HPF (0-3); Specific Gravity, Urine 1.018 (1.002-1.036); Squamous Epithelial 0-3 HPF (0-3); Urobilinogen Normal mg/dL (Less than 2); WBC/HPF 0-3 HPF (0-3); pH, Urine 5.5 (5.0-9.0)
[2023-12-14 16:52] LABS: Bacteria/HPF 1+ HPF (None Seen)
[2023-12-14 16:53] LABS: Urine Culture Reflex No No
[2023-12-14 18:38] LABS: Troponin I 0.045 ng/mL (< 0.028)
== END 2023-12-14 18:45 | disposition home or self-care (01) ==
LOC: ERS 14:23
DX: S01.81XA Laceration without foreign body of other part of head, initial encounter (principal); F10.129 Alcohol abuse with intoxication, unspecified; I11.0 Hypertensive heart disease with heart failure; I50.9 Heart failure, unspecified; J44.9 Chronic obstructive pulmonary disease, unspecified; Z87.891 Personal history of nicotine dependence; W22.8XXA Striking against or struck by other objects, initial encounter; Y90.8 Blood alcohol level of 240 mg/100 ml or more
CPT/HCPCS: 12001; 36416; 70450; 71045; 80053; 80307; 81001; 82140; 83690; 84484; 85025; 93005; 96360

== ENCOUNTER 2025-10-22 02:02 | Emergency (ER) | payer MEDICARE, OTHER ==
[2025-10-22] MEDS ORDERED: Magnesium 2 GM/50 ML BAG (IN WATER) ONE (02:33)
[2025-10-22] MEDS ORDERED: Albuterol 2.5 MG (3 mL) NEB ONE (02:33)
[2025-10-22] MEDS ORDERED: Dexamethasone 10 MG/ML VIAL ONE (02:39)
== END 2025-10-22 04:39 | disposition home or self-care (01) ==
LOC: ERS 02:02
DX: R06.2 Wheezing (principal); R05.1 Acute cough; I11.0 Hypertensive heart disease with heart failure; I50.9 Heart failure, unspecified; J44.9 Chronic obstructive pulmonary disease, unspecified; Z95.0 Presence of cardiac pacemaker; Z79.899 Other long term (current) drug therapy; Z79.01 Long term (current) use of anticoagulants; Z87.891 Personal history of nicotine dependence
CPT/HCPCS: 71045; 93005; J1100; J3475; 96365; 96375; J7611

== ENCOUNTER 2025-11-02 23:05 | Inpatient (IN) | payer MEDICARE ==
[2025-11-03] MEDS ORDERED: HYDROcodone/Acetaminophen 5/325 mg Tablet ONE (00:02)
[2025-11-03 00:04] LABS: #Basophils 0.07 10x3/uL (0.0-0.2); #Eosinophils 0.22 10x3/uL (0.0-0.7); #Monocytes 0.41 10x3/uL (0.11-0.59); #Neutrophils 6.47 10x3/uL (1.40-6.50); %Basophils 0.7 % (0.0-1.0); %Eosinophils 2.2 % (0.0-10.0); %Lymphocytes 27.2 % (21.0-51.0); %Monocytes 4.1 % (0.0-10.0); %Neutrophils 65.4 % (42.0-75.0); Hematocrit 36.9 % (42.0-52.0); Hemoglobin 11.4 g/dL (14.0-18.0); Mean Corpuscular Hemoglobin 31.8 pg (27.0-31.0); Mean Corpuscular Volume 103.1 fL (78.0-98.0); Platelet Count 178 10x3/uL (130-400); Red Blood Cell (RBC) Count 3.58 mill/uL (4.70-6.10); White Blood Cell (WBC) Count 9.91 10x3/uL (4.8-10.8)
[2025-11-03 00:19] LABS: ALT (SGPT) 52 U/L (Less than 45); AST (SGOT) 57 U/L (11-34); Albumin 3.6 g/dL (3.1-4.5); Alkaline Phosphatase 93 U/L (40-110); Anion Gap 16 mmol/L (10-20); BUN (Urea Nitrogen) 9 mg/dL (8.4-25.7); Bilirubin, Total 0.5 mg/dL (0.3-1.2); Calc. Creatinine Clearance 0 mL/min (70-130); Calcium 9.1 mg/dL (7.8-10.44); Carbon Dioxide 24 mmol/L (22-29); Chloride 109 mmol/L (98-107); Globulin 3.1 g/dL (2.4-3.5); Glucose 75 mg/dL (70-105); Potassium 3.9 mmol/L (3.5-5.1); Sodium 145 mmol/L (136-145)
[2025-11-03 03:21] LABS: Magnesium 2.1 mg/dL (1.6-2.6)
[2025-11-03] MEDS ORDERED: Aspirin Chewable 81 MG TAB ONE (03:24)
[2025-11-03 07:14] VITALS: BMI 18.2
[2025-11-03] MEDS ORDERED: PNEUMOC 20-VAL CONJ-DIP CRM/PF 0.5 ML SYRINGE IM ONE (07:15)
[2025-11-03] MEDS ORDERED: Proctozone-HC 30 GM TUBE TOP PRN (10:02)
[2025-11-03] MEDS: Sacubitril 24MG/Valsartan 26 MG TAB PO SCH (20:18)
[2025-11-03] MEDS: Apixaban 5 MG TAB PO SCH (20:18)
[2025-11-04] MEDS: Acetaminophen 325 MG TAB PO PRN (02:13)
[2025-11-04 05:03] LABS: #Basophils 0.06 10x3/uL (0.0-0.2); #Eosinophils 0.33 10x3/uL (0.0-0.7); #Monocytes 0.43 10x3/uL (0.11-0.59); #Neutrophils 5.50 10x3/uL (1.40-6.50); %Basophils 0.7 % (0.0-1.0); %Eosinophils 3.6 % (0.0-10.0); %Lymphocytes 30.4 % (21.0-51.0); %Monocytes 4.7 % (0.0-10.0); %Neutrophils 60.3 % (42.0-75.0); Hematocrit 40.3 % (42.0-52.0); Hemoglobin 12.5 g/dL (14.0-18.0); Mean Corpuscular Hemoglobin 31.2 pg (27.0-31.0); Mean Corpuscular Volume 100.5 fL (78.0-98.0); Platelet Count 205 10x3/uL (130-400); Red Blood Cell (RBC) Count 4.01 mill/uL (4.70-6.10); White Blood Cell (WBC) Count 9.13 10x3/uL (4.8-10.8)
[2025-11-04 05:42] LABS: ALT (SGPT) 36 U/L (Less than 45); AST (SGOT) 30 U/L (11-34); Albumin 3.4 g/dL (3.1-4.5); Alkaline Phosphatase 86 U/L (40-110); Anion Gap 10 mmol/L (10-20); BUN (Urea Nitrogen) 14 mg/dL (8.4-25.7); Bilirubin, Total 0.7 mg/dL (0.3-1.2); Calc. Creatinine Clearance 69 mL/min (70-130); Calcium 9.5 mg/dL (7.8-10.44); Carbon Dioxide 23 mmol/L (22-29); Chloride 108 mmol/L (98-107); Globulin 3.2 g/dL (2.4-3.5); Glucose 90 mg/dL (70-105); Magnesium 1.8 mg/dL (1.6-2.6); Potassium 4.1 mmol/L (3.5-5.1); Sodium 137 mmol/L (136-145)
[2025-11-04] MEDS: Spironolactone 25 MG TAB PO SCH (08:32)
[2025-11-04] MEDS: Sertraline 100 MG TAB PO SCH (08:32)
[2025-11-04] MEDS: Furosemide 40 MG (4 mL) VIAL SLOW IVP SCH ×2 (10:52→15:13)
[2025-11-04 12:01] LABS: Cocaine Metabolite Screen Negative (Negative); THC/Cannabinoid Screen Negative (Negative); Tricyclic Screen Negative (Negative)
[2025-11-05 04:42] LABS: #Basophils 0.06 10x3/uL (0.0-0.2); #Eosinophils 0.34 10x3/uL (0.0-0.7); #Monocytes 0.54 10x3/uL (0.11-0.59); #Neutrophils 5.21 10x3/uL (1.40-6.50); %Basophils 0.6 % (0.0-1.0); %Eosinophils 3.7 % (0.0-10.0); %Lymphocytes 33.5 % (21.0-51.0); %Monocytes 5.8 % (0.0-10.0); %Neutrophils 56.1 % (42.0-75.0); Hematocrit 46.9 % (42.0-52.0); Hemoglobin 14.9 g/dL (14.0-18.0); Mean Corpuscular Hemoglobin 31.5 pg (27.0-31.0); Mean Corpuscular Volume 99.2 fL (78.0-98.0); Platelet Count 260 10x3/uL (130-400); Red Blood Cell (RBC) Count 4.73 mill/uL (4.70-6.10); White Blood Cell (WBC) Count 9.29 10x3/uL (4.8-10.8)
[2025-11-05 04:57] LABS: ALT (SGPT) 31 U/L (Less than 45); AST (SGOT) 24 U/L (11-34); Albumin 3.8 g/dL (3.1-4.5); Alkaline Phosphatase 94 U/L (40-110); Anion Gap 12 mmol/L (10-20); BUN (Urea Nitrogen) 18 mg/dL (8.4-25.7); Bilirubin, Total 0.9 mg/dL (0.3-1.2); Calc. Creatinine Clearance 55 mL/min (70-130); Calcium 10.0 mg/dL (7.8-10.44); Carbon Dioxide 28 mmol/L (22-29); Chloride 103 mmol/L (98-107); Globulin 3.9 g/dL (2.4-3.5); Glucose 77 mg/dL (70-105); Magnesium 2.2 mg/dL (1.6-2.6); Potassium 3.9 mmol/L (3.5-5.1); Sodium 139 mmol/L (136-145)
[2025-11-05 11:10] VITALS: BP 99/61; TEMP 98.5
== END 2025-11-05 14:47 | disposition home or self-care (01) | DRG 312 ==
LOC: ERS 23:05 → 2NO 11-03 04:40 → OBSVTOIN 11-04 10:25
PROVIDERS: ADMIT Student in an Organized Health Care Education/Training Program; ATTEND Internal Medicine
PROC: 3E0234Z Introduction of Serum, Toxoid and Vaccine into Muscle, Percutaneous Approach (ICD-10-PCS; principal; 2025-11-04)
DX: R55 Syncope and collapse (principal); I13.0 Hypertensive heart and chronic kidney disease with heart failure and stage 1 through stage 4 chronic kidney disease, or unspecified chronic kidney disease; I50.32 Chronic diastolic (congestive) heart failure; N18.9 Chronic kidney disease, unspecified; J44.9 Chronic obstructive pulmonary disease, unspecified; F32.A Depression, unspecified; I25.10 Atherosclerotic heart disease of native coronary artery without angina pectoris; W18.30XA Fall on same level, unspecified, initial encounter; Z95.0 Presence of cardiac pacemaker; Z95.5 Presence of coronary angioplasty implant and graft; Z86.73 Personal history of transient ischemic attack (TIA), and cerebral infarction without residual deficits; Z87.891 Personal history of nicotine dependence; Z91.018 Allergy to other foods; Z91.0110 Allergy to milk products, unspecified; Z79.899 Other long term (current) drug therapy; Z79.01 Long term (current) use of anticoagulants; Z79.02 Long term (current) use of antithrombotics/antiplatelets; Z79.51 Long term (current) use of inhaled steroids; Z23 Encounter for immunization
CPT/HCPCS: 36415; 70450; 71045; 80053; 80306; 83735; 83880; 84484; 85025; 93005; J1940

== ENCOUNTER 2025-11-06 02:03 | Inpatient (IN) | payer MEDICARE ==
[2025-11-06 02:51] LABS: #Basophils 0.07 10x3/uL (0.0-0.2); #Eosinophils 0.16 10x3/uL (0.0-0.7); #Monocytes 0.72 10x3/uL (0.11-0.59); #Neutrophils 11.96 10x3/uL (1.40-6.50); %Basophils 0.5 % (0.0-1.0); %Eosinophils 1.0 % (0.0-10.0); %Lymphocytes 15.2 % (21.0-51.0); %Monocytes 4.7 % (0.0-10.0); %Neutrophils 78.2 % (42.0-75.0); Hematocrit 41.1 % (42.0-52.0); Hemoglobin 13.1 g/dL (14.0-18.0); Mean Corpuscular Hemoglobin 31.6 pg (27.0-31.0); Mean Corpuscular Volume 99.0 fL (78.0-98.0); Platelet Count 226 10x3/uL (130-400); Red Blood Cell (RBC) Count 4.15 mill/uL (4.70-6.10); White Blood Cell (WBC) Count 15.30 10x3/uL (4.8-10.8)
[2025-11-06 03:18] LABS: ALT (SGPT) 28 U/L (Less than 45); AST (SGOT) 28 U/L (11-34); Albumin 4.1 g/dL (3.1-4.5); Alkaline Phosphatase 90 U/L (40-110); Anion Gap 21 mmol/L (10-20); BUN (Urea Nitrogen) 29 mg/dL (8.4-25.7); Bilirubin, Total 0.7 mg/dL (0.3-1.2); Calc. Creatinine Clearance 0 mL/min (70-130); Calcium 9.7 mg/dL (7.8-10.44); Carbon Dioxide 26 mmol/L (22-29); Chloride 98 mmol/L (98-107); Globulin 3.5 g/dL (2.4-3.5); Glucose 99 mg/dL (70-105); Potassium 3.7 mmol/L (3.5-5.1); Sodium 141 mmol/L (136-145)
[2025-11-06] MEDS ORDERED: Ondansetron PF 4 MG/2 ML Vial IVP PRN (04:22)
[2025-11-06] MEDS ORDERED: Acetaminophen 325 MG TAB PO PRN (04:22)
[2025-11-06 05:04] VITALS: BMI 17.6
[2025-11-06 05:57] LABS: Magnesium 2.4 mg/dL (1.6-2.6)
[2025-11-06] MEDS: Apixaban 5 MG TAB PO SCH (09:07)
[2025-11-06] MEDS: Carvedilol 6.25 MG TAB PO SCH (09:07)
[2025-11-06] MEDS: Sertraline 100 MG TAB PO SCH (09:09)
[2025-11-06 10:02] LABS: Anion Gap 16 mmol/L (10-20); BUN (Urea Nitrogen) 28 mg/dL (8.4-25.7); Calc. Creatinine Clearance 26 mL/min (70-130); Calcium 9.1 mg/dL (7.8-10.44); Carbon Dioxide 24 mmol/L (22-29); Chloride 102 mmol/L (98-107); Glucose 150 mg/dL (70-105); Potassium 4.0 mmol/L (3.5-5.1); Sodium 138 mmol/L (136-145)
[2025-11-06 15:09] LABS: Cocaine Metabolite Screen Negative (Negative); THC/Cannabinoid Screen PRELIM POSITIVE (Negative); Tricyclic Screen Negative (Negative)
[2025-11-07 04:04] LABS: #Basophils 0.06 10x3/uL (0.0-0.2); #Eosinophils 0.35 10x3/uL (0.0-0.7); #Monocytes 0.52 10x3/uL (0.11-0.59); #Neutrophils 3.30 10x3/uL (1.40-6.50); %Basophils 0.8 % (0.0-1.0); %Eosinophils 4.5 % (0.0-10.0); %Lymphocytes 45.5 % (21.0-51.0); %Monocytes 6.7 % (0.0-10.0); %Neutrophils 42.2 % (42.0-75.0); Hematocrit 36.5 % (42.0-52.0); Hemoglobin 11.4 g/dL (14.0-18.0); Mean Corpuscular Hemoglobin 31.7 pg (27.0-31.0); Mean Corpuscular Volume 101.4 fL (78.0-98.0); Platelet Count 206 10x3/uL (130-400); Red Blood Cell (RBC) Count 3.60 mill/uL (4.70-6.10); White Blood Cell (WBC) Count 7.80 10x3/uL (4.8-10.8)
[2025-11-07 04:18] LABS: Anion Gap 11 mmol/L (10-20); BUN (Urea Nitrogen) 27 mg/dL (8.4-25.7); Calc. Creatinine Clearance 50 mL/min (70-130); Calcium 9.2 mg/dL (7.8-10.44); Carbon Dioxide 25 mmol/L (22-29); Chloride 109 mmol/L (98-107); Glucose 85 mg/dL (70-105); Magnesium 2.2 mg/dL (1.6-2.6); Potassium 4.7 mmol/L (3.5-5.1); Sodium 140 mmol/L (136-145)
[2025-11-07 16:43] VITALS: BP 146/79; TEMP 97.6
[2025-11-09] MEDS ORDERED: FLU (Fluarix Triv) 25-26 (6MOS UP)/PF 45 MCG/0.5 ML Syringe IM ONE (09:00)
== END 2025-11-07 18:52 | disposition home or self-care (01) | DRG 683 ==
LOC: ERS 02:03 → PCU 04:24
PROVIDERS: ADMIT Internal Medicine; ATTEND Student in an Organized Health Care Education/Training Program
DX: N17.9 Acute kidney failure, unspecified (principal); I13.0 Hypertensive heart and chronic kidney disease with heart failure and stage 1 through stage 4 chronic kidney disease, or unspecified chronic kidney disease; I42.8 Other cardiomyopathies; I5A Non-ischemic myocardial injury (non-traumatic); I50.42 Chronic combined systolic (congestive) and diastolic (congestive) heart failure; N18.9 Chronic kidney disease, unspecified; I25.10 Atherosclerotic heart disease of native coronary artery without angina pectoris; E78.5 Hyperlipidemia, unspecified; J44.9 Chronic obstructive pulmonary disease, unspecified; F41.9 Anxiety disorder, unspecified; D63.1 Anemia in chronic kidney disease; F32.A Depression, unspecified; Z86.73 Personal history of transient ischemic attack (TIA), and cerebral infarction without residual deficits; Z95.810 Presence of automatic (implantable) cardiac defibrillator; Z87.891 Personal history of nicotine dependence; Z91.0110 Allergy to milk products, unspecified; Z88.8 Allergy status to other drugs, medicaments and biological substances; Z91.018 Allergy to other foods; Z79.01 Long term (current) use of anticoagulants; Z79.899 Other long term (current) drug therapy
CPT/HCPCS: 36415; 71045; 80048; 80053; 80306; 83690; 83735; 83880; 84484; 85025; 93005; 93306; J7030

== ENCOUNTER 2025-11-09 02:32 | Emergency (ER) | payer MEDICARE ==
[2025-11-09 05:22] LABS: #Basophils 0.06 10x3/uL (0.0-0.2); #Eosinophils 0.42 10x3/uL (0.0-0.7); #Monocytes 0.49 10x3/uL (0.11-0.59); #Neutrophils 2.87 10x3/uL (1.40-6.50); %Basophils 0.9 % (0.0-1.0); %Eosinophils 6.1 % (0.0-10.0); %Lymphocytes 44.3 % (21.0-51.0); %Monocytes 7.1 % (0.0-10.0); %Neutrophils 41.3 % (42.0-75.0); Hematocrit 40.3 % (42.0-52.0); Hemoglobin 12.7 g/dL (14.0-18.0); Mean Corpuscular Hemoglobin 31.6 pg (27.0-31.0); Mean Corpuscular Volume 100.2 fL (78.0-98.0); Platelet Count 221 10x3/uL (130-400); Red Blood Cell (RBC) Count 4.02 mill/uL (4.70-6.10); White Blood Cell (WBC) Count 6.93 10x3/uL (4.8-10.8)
[2025-11-09 05:37] LABS: ALT (SGPT) 23 U/L (Less than 45); AST (SGOT) 31 U/L (11-34); Albumin 4.0 g/dL (3.1-4.5); Alkaline Phosphatase 83 U/L (40-110); Anion Gap 18 mmol/L (10-20); BUN (Urea Nitrogen) 28 mg/dL (8.4-25.7); Bilirubin, Total 0.7 mg/dL (0.3-1.2); Calc. Creatinine Clearance 0 mL/min (70-130); Calcium 9.6 mg/dL (7.8-10.44); Carbon Dioxide 21 mmol/L (22-29); Chloride 107 mmol/L (98-107); Globulin 3.6 g/dL (2.4-3.5); Glucose 93 mg/dL (70-105); Lipase 55 U/L (8-78); Potassium 4.5 mmol/L (3.5-5.1); Sodium 141 mmol/L (136-145)
[2025-11-09] MEDS ORDERED: Ketorolac Tromethamine 30 MG (1 mL) VIAL ONE (05:44)
[2025-11-09] MEDS ORDERED: Mag-Al 1200 mg/1200 mg/30 ML UDCUP ONE (06:41)
[2025-11-09] MEDS ORDERED: Famotidine/PF 20 mg/2ml Vial ONE (06:41)
[2025-11-09] MEDS ORDERED: Lidocaine Viscous Sol 2% 15 ml UD Cup ONE (06:41)
== END 2025-11-09 07:18 | disposition home or self-care (01) ==
LOC: ERS 02:32
DX: R10.11 Right upper quadrant pain (principal); I50.9 Heart failure, unspecified; J44.9 Chronic obstructive pulmonary disease, unspecified; Z95.0 Presence of cardiac pacemaker; Z95.5 Presence of coronary angioplasty implant and graft
CPT/HCPCS: 71045; 76705; 80053; 83605; 83690; 83880; 84484; 85025; 87428; 93005; 96374; 96375; 99285; J1308; J1885